=== PATIENT | male | born 1940 | race Caucasian/White ===

== ENCOUNTER → 2017-04-27 | Outpatient (CLI) | payer OTHER ==
[2017-04-27 08:06] LABS: MEAN CORPUSCULAR HEMOGLOBIN 32.9 pg (27.0-33.0); MEAN CORPUSCULAR HGB CONC 34.1 g/dl (32.0-36.5); MEAN CORPUSCULAR VOLUME 96.4 fl (80.0-96.0); RED CELL DISTRIBUTION WIDTH 12.6 % (11.5-14.5); WHITE BLOOD COUNT 5.3 K/mm3 (4.0-10.0)
[2017-04-27 08:51] LABS: ALBUMIN/GLOBULIN RATIO 1.48 (1.00-1.93); ALKALINE PHOSPHATASE 94 U/L (45-117); ALT/SGPT 25 U/L (12-78); ANION GAP 6 MEQ/L (8-16); AST/SGOT 26 U/L (15-37); BILIRUBIN,TOTAL 1.1 MG/DL (0.2-1.0); BLOOD UREA NITROGEN 11 MG/DL (7-18); CALCIUM LEVEL 8.7 MG/DL (8.8-10.2); CARBON DIOXIDE LEVEL 29 MEQ/L (21-32); CHLORIDE LEVEL 95 MEQ/L (98-107); CHOLESTEROL LEVEL 152 MG/DL (<200); CREATININE FOR GFR 0.76 MG/DL (0.70-1.30); GLOMERULAR FILTRATION RATE > 60.0 (>42); GLUCOSE, FASTING 100 MG/DL (83-110); POTASSIUM SERUM 4.6 MEQ/L (3.5-5.1); SODIUM LEVEL 130 MEQ/L (136-145); TOTAL PROTEIN 6.7 GM/DL (6.4-8.2); TRIGLYCERIDES LEVEL 55 MG/DL (<150)
--- NOTE | 2017-04-27 09:11 | REP ---
Chest x-ray: Two views. History: Hypertension. Comparison chest x-ray May 30, 2016. Findings: The lungs are well inflated and clear. Pleural angles are sharp. The heart is mildly enlarged unchanged from the comparison study. There is evidence of left atrial enlargement along the right heart border. There is vascular calcification in the thoracic aorta. Mild degenerative changes are seen in the thoracic spine. Impression: Mild cardiomegaly unchanged. Otherwise no acute disease. Signed by Eze Levin MD 04/27/2017 09:37 A
--- NOTE | 2017-04-28 13:50 | ECGEPIP ---
Stationary ECG Study [facility] Test Date: 2017-04-27 Pat Name: HELENE JAY Department: Room: - Gender: M Assistant Operator: : 1940 Requested By: Carol Dominique Order Number: [id number] Reading MD: Jorge Eason Measurements Intervals [place] Rate: 54 P: [place]: 0 QRS: 19 QRSD: 82 T: 19 QT: 404 QTc: 385 Interpretive Statements ATRIAL FIBRILLATION WITH SLOW VENTRICULAR RESPONSE Rate decreased from 03-18-15 Electronically Signed On 04-28-2017 13:49:57 EDT by Jorge Eason
== END ==
LOC: M LAB 07:31
PROVIDERS: ATTEND Family Medicine
DX: R53.83 Other fatigue (principal); I10 Essential (primary) hypertension; N40.1 Benign prostatic hyperplasia with lower urinary tract symptoms; Z79.899 Other long term (current) drug therapy

== ENCOUNTER → 2017-05-23 | Outpatient (CLI) | payer OTHER | LOC: M LAB 10:07 | PROVIDERS: ATTEND Family Medicine | DX: N41.9 Inflammatory disease of prostate, unspecified (principal) ==

== ENCOUNTER → 2017-06-05 | Outpatient (REF) | payer OTHER | LOC: M SMT 17:07 | PROVIDERS: ATTEND Nurse Practitioner Women's Health | DX: R97.20 Elevated prostate specific antigen [PSA] (principal); Z79.899 Other long term (current) drug therapy | CPT/HCPCS: 81001; 87086; G0463 ==

== ENCOUNTER → 2017-06-19 | Outpatient (CLI) | payer OTHER ==
--- NOTE | 2017-06-19 10:28 | REP ---
TRANSRECTAL PROSTATE ULTRASOUND: 06/19/2017 CLINICAL HISTORY. Elevated PSA. FINDINGS: Sonographic evaluation of the prostate with transrectal probe shows the gland 4.6 x 3.2 x 4.7 cm giving calculated volume of 36.5 mL . The bilateral seminal vesicles are symmetric and unremarkable. The gland is heterogeneous in appearance and on the right side is an 8 x 6 mm nodule the left is a 7 x 5 mm nodule. There are some calcifications scattered in the gland is well. IMPRESSION: 1. Heterogeneous prostate with the multiple calcifications and two small nodules as described 8 mm on the right and 7 mm on the left side. Prostate volume 36.5 mL in volume. Signed by Jaguar Hernandez MD 06/19/2017 06:55 P
== END ==
LOC: M SMT PRO 08:13
PROVIDERS: ATTEND Nurse Practitioner Women's Health
DX: C61 Malignant neoplasm of prostate (principal)
CPT/HCPCS: 55700; 76872; 76942; G0416

== ENCOUNTER → 2017-06-27 | Outpatient (CLI) | payer OTHER ==
[2017-06-27 19:30] LABS: ANION GAP 10 MEQ/L (8-16); BLOOD UREA NITROGEN 12 MG/DL (7-18); CALCIUM LEVEL 8.9 MG/DL (8.8-10.2); CARBON DIOXIDE LEVEL 27 MEQ/L (21-32); CHLORIDE LEVEL 96 MEQ/L (98-107); GLOMERULAR FILTRATION RATE > 60.0 (>42); GLUCOSE, FASTING 101 MG/DL (83-110); SODIUM LEVEL 133 MEQ/L (136-145)
== END ==
LOC: M SMT 13:32
PROVIDERS: ATTEND Urology
DX: C61 Malignant neoplasm of prostate (principal)
CPT/HCPCS: 36415; 80048; G0463

== ENCOUNTER → 2017-07-04 | Outpatient (CLI) | payer OTHER ==
--- NOTE | 2017-07-04 13:50 | REP ---
WHOLE BODY BONE SCAN: Following the intravenous administration of 22 millicuries technetium 99m MDP, the patient's whole body is imaged in the anterior and posterior projections. Additional oblique images are performed of the thoracic and pelvic regions as well as lateral views of the calvarium, knees and feet. Mild scattered arthritic uptake is seen in the spine. There is mild arthritic uptake in both knees and in the right foot. I see no compelling scintigraphic evidence of osseous metastases of the axial or appendicular skeleton. Renal and bladder activity are seen. IMPRESSION: No compelling scintigraphic evidence of osseous metastases. Signed by Alejandro Lewis MD 07/04/2017 05:12 P
== END ==
LOC: M RAD 07:43
PROVIDERS: ATTEND Urology
DX: C61 Malignant neoplasm of prostate (principal)
CPT/HCPCS: 78306; A9503

== ENCOUNTER → 2017-07-09 | Outpatient (CLI) | payer OTHER ==
[~2017-07-09] MED LIST: ISOVUE-370 76% 100ML VIAL (Q9967) As Ordered ONE
--- NOTE | 2017-07-09 11:10 | REP ---
CT ABDOMEN PELVIS WITHOUT AND WITH IV CONTRAST: Without oral contrast. HISTORY: Prostate carcinoma. CT contrast dose: 100 mL of Isovue [address] FINDINGS: Digital preliminary sourcing coordinator radiograph demonstrates a normal bowel gas pattern. The lung bases are clear. There is no evidence of pleural effusion or upper abdominal ascites. The liver and the spleen are normal in size and homogeneous in texture. There are granulomatous calcifications in the spleen. There is a focal calcification on the non-dependent wall of the gallbladder. No mass lesion is seen. No adrenal lesion is observed on either side. There is no evidence of hydronephrosis. There is a peripheral cyst in the right mid kidney posteriorly measuring 1.9 cm in greatest diameter. No periaortic adenopathy is seen. Normal caliber aorta is noted. Small and large intestinal bowel loops are unremarkable. Pelvic CT images show mild diffuse bladder wall thickening. The prostate appears enlarged and contains some dystrophic calcifications. No pelvic adenopathy or extra prostatic disease is seen. Seminal vesicles are unremarkable. There is a left inguinal hernia transmitting a small amount of abdominal fat and containing some fluid. The left lateral wall of the bladder is retracted towards the inguinal hernia. No other abdominal wall defect is seen. Bone window settings show no sclerotic or lytic bony destructive lesion. There are degenerative changes in the lumbar spine. IMPRESSION: 1. Diffuse bladder wall thickening. Prostate enlargement. No evidence of adenopathy. 2. Left inguinal hernia transmitting abdominal fat and containing some fluid. The left lateral edge of the bladder is retracted towards the inguinal canal at the time of today's CT study and could be involved in the inguinal hernia. 3. Focal calcification in the gallbladder wall on its non-dependent surface. 4. Small right renal cyst, no hydronephrosis. Signed by Eze Levin MD 07/09/2017 12:33 P
== END ==
LOC: M RAD 09:34
PROVIDERS: ATTEND Urology
DX: C61 Malignant neoplasm of prostate (principal); N28.1 Cyst of kidney, acquired; K40.90 Unilateral inguinal hernia, without obstruction or gangrene, not specified as recurrent
CPT/HCPCS: 74178; Q9967

== ENCOUNTER → 2017-07-19 | Outpatient (CLI) | payer OTHER ==
--- NOTE | 2017-07-20 11:18 | RADONC ---
RADIATION ONCOLOGY CONSULTATION NOTE DATE: 07/19/2017 CHART NUMBER: [id number] DIAGNOSIS: Prostate cancer. STAGE: IIB, [id number]. ECOG PERFORMANCE STATUS: 0 Mr. 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 HISTORY OF PRESENT ILLNESS: The patient was in his usual state of health but was found to have a PSA level which elvis to 5.05 on 05/23/2017. On 06/19/2017, the patient underwent prostatic needle biopsy, and pathology found a Amanda score 9 (5 - 4) adenocarcinoma of prostate involving all cores of the left side. There was perineural invasion noted on one of the cores. The patient has done well since biopsy and is now presenting for discussion of definitive external beam radiation therapy with IMRT/IGRT. PAST MEDICAL HISTORY: The patient's past medical history is positive for a basal cell carcinoma in 2014 on his nose which was treated by us to a dose of 5000 cGy in 20 fractions of 257 cGy each. In addition to his skin cancer, the patient's past medical history is positive for cardiac difficulties and an amputated right finger. He also has a history of hypertension and arthritis. ALLERGIES: Patient is allergic to NAPROXEN. SOCIAL HISTORY: The patient does not smoke cigarettes. He drinks alcohol socially. FAMILY HISTORY: The patient's family history is positive for a mother, brother, and sister with various types of cancers. REVIEW OF SYSTEMS: The patient's review of systems is positive for some hearing loss but is otherwise noncontributory. He denies nausea, vomiting, fevers, chills, night sweats, diplopia, headaches, anxiety or depression, anorexia, weight loss, visual disturbances, chest pain, urinary or bowel difficulties, bone pain, or neurological problems. PHYSICAL EXAMINATION The patient is a well-developed, well-nourished male in no acute distress. HEENT exam is normocephalic, atraumatic. Extraocular movements are intact. There is no palpable cervical, supraclavicular, infraclavicular, axillary, or inguinal lymphadenopathy present. Lungs are clear to auscultation and percussion. Heart has a regular rate and rhythm. Abdomen is benign with no hepatosplenomegaly, masses, or tenderness. Rectal examination reveals a normal anal sphincter tone. His prostate is smooth with no evidence of nodularity. Skeletal examination reveals no tenderness to pressure or percussion of the bony skeleton. Extremities reveal no clubbing, cyanosis, or edema. Neurologic exam is grossly intact, as is the remainder of the physical examination. MEDICAL NECESSITY: IMRT/IGRT is clinically indicated for the highly conformal dose planning required. The target volume is in close proximity to critical structures, such as the rectum, bladder, small bowel, and femoral heads. The volume of interest must be covered with narrow margins to adequately protect immediately adjacent structures. The plan requires interpretation of complex testing such as CT localization. As noted above, special planning (IMRT) and localizing (IGRT) is required and essential to maximally protect sensitive normal tissue structures which cannot be accomplished using conventional 3-dimensional planning. ASSESSMENT: Clearly, the patient is a candidate for external beam radiation therapy, and I have so informed him. I have discussed with the patient in detail the potential benefits as well as possible acute and chronic sequelae of external beam radiation therapy. We discussed logistics of treatment planning, simulation, and subsequent fractionated daily radiation treatments. I will be scheduling the patient for initiation of treatment planning, and radiation treatments will follow subsequently. Thank you for allowing us to participate in the care of this very pleasant gentleman. If I could be of any further assistance or provide you with any information, please feel free to contact me at anytime. cc: MD Catina Jimenez MD
--- NOTE | 2017-09-19 08:17 | RADONC ---
RADIATION ONCOLOGY DATE: 09/17/2017 CHART NUMBER: [id number] Mr. Seymour is presently on a dose of 1800 cGy to his prostate and is tolerating treatments quite well at this point with no complaints related to his radiation therapy. He is having no urinary or bowel difficulties. No bone pain. REVIEW OF SYSTEMS: The patient's review of systems is noncontributory. Denies nausea, vomiting, fevers, chills, night sweats, diplopia, headaches, anxiety or depression, anorexia, weight loss, visual disturbances, chest pain, urinary or bowel difficulties, bone pain, or neurological problems. PHYSICAL EXAMINATION: It at the patient's skin is in good condition with no evidence of radiation change present. There is no moist or dry desquamation. The remainder of his physical exam remains unchanged. Mr. Seymour is tolerating treatments quite well, and radiation will continue as scheduled.
== END ==
LOC: M ONCR 13:42
PROVIDERS: ATTEND Radiology Radiation Oncology
DX: C61 Malignant neoplasm of prostate (principal)

== ENCOUNTER → 2017-08-07 | Outpatient (CLI) | payer OTHER ==
--- NOTE | 2017-08-07 13:07 | REP ---
TRANSRECTAL PROSTATE ULTRASOUND GUIDANCE FOR FIDUCIARY MARKER PLACEMENT: Transrectal ultrasound guidance was provided for fiduciary marker placement in the prostate gland. Six fiduciary markers were placed in various locations in the prostate by Dr. Carmen. Signed by Alejandro Lewis MD 08/07/2017 01:51 P
== END ==
LOC: M SMT 11:10
PROVIDERS: ATTEND Urology
DX: C61 Malignant neoplasm of prostate (principal)
CPT/HCPCS: 55700; 55876; 76872; A4648

== ENCOUNTER → 2017-08-22 | Outpatient (CLI) | payer OTHER ==
[2017-08-22 11:07] LABS: MEAN CORPUSCULAR HEMOGLOBIN 32.7 pg (27.0-33.0); MEAN CORPUSCULAR HGB CONC 34.6 g/dl (32.0-36.5); MEAN CORPUSCULAR VOLUME 94.4 fl (80.0-96.0); RED CELL DISTRIBUTION WIDTH 12.6 % (11.5-14.5); WHITE BLOOD COUNT 6.8 10^3/uL (4.0-10.0)
== END ==
LOC: M RAD 10:20
PROVIDERS: ATTEND Radiology Radiation Oncology
DX: C61 Malignant neoplasm of prostate (principal)

== ENCOUNTER 2017-09-19 14:11 | Outpatient (RCR) | payer OTHER ==
--- NOTE | 2017-09-26 07:30 | RADONC ---
RADIATION ONCOLOGY PROGRESS NOTE DATE: 09/24/2017 CHART NUMBER: [id number] Mr. Seymour is presently at a dose of 2700 cGy to his prostate and is tolerating treatments quite well at this point with no complaints related to his radiation therapy. He is having no urinary or bowel difficulties and no bone pain. REVIEW OF SYSTEMS: The patient's review of systems is noncontributory. Denies nausea, vomiting, fevers, chills, night sweats, diplopia, headaches, anxiety or depression, anorexia, weight loss, visual disturbances, chest pain, urinary or bowel difficulties, bone pain, or neurological problems. PHYSICAL EXAMINATION: The patient's skin is in good condition with no evidence of radiation change present. There is no moist or dry desquamation. The remainder of his physical exam remains unchanged. Mr. Seymour is tolerating treatments quite well and radiation will continue as scheduled.
--- NOTE | 2017-10-01 08:59 | RADONC ---
RADIATION ONCOLOGY PROGRESS NOTE DATE: 10/01/2017 CHART NUMBER: [id number] Mr. Seymour is presently at a dose of 3600 cGy to his prostate and is tolerating treatments quite well at this point with no significant difficulties related to his radiation therapy other than some occasional urinary hesitancy. The patient's review of systems is positive for some urinary hesitancy but is otherwise noncontributory. He denies nausea, vomiting, fevers, chills, night sweats, diplopia, headaches, anxiety or depression, anorexia, weight loss, visual disturbances, chest pain, urinary or bowel difficulties, bone pain, or neurological problems. PHYSICAL EXAMINATION: The patient's skin is in good condition with no evidence of radiation change present. There is no moist or dry desquamation. The remainder of his physical exam remains unchanged. Mr. Seymour is tolerating treatments quite well at this point and radiation will continue as scheduled.
--- NOTE | 2017-10-08 11:01 | RADONC ---
RADIATION ONCOLOGY PROGRESS NOTE DATE: 10/08/2017 CHART NUMBER: [id number] Mr. Seymour is presently at a dose of 4320 cGy to his prostate and is tolerating treatments quite well at this point with no complaints related to his radiation therapy. He is having no urinary or bowel difficulties and no bone pain. REVIEW OF SYSTEMS: The patient's review of systems is noncontributory. Denies nausea, vomiting, fevers, chills, night sweats, diplopia, headaches, anxiety or depression, anorexia, weight loss, visual disturbances, chest pain, urinary or bowel difficulties, bone pain, or neurological problems. PHYSICAL EXAMINATION: The patient's skin is in good condition with no evidence of radiation change present. There is no moist or dry desquamation. The remainder of his physical exam remains unchanged. Mr. Seymour is tolerating treatments quite well and radiation will continue as scheduled.
--- NOTE | 2017-10-15 09:47 | RADONC ---
RADIATION ONCOLOGY PROGRESS NOTE DATE: 10/15/2017 CHART NUMBER: [id number] Mr. Seymour is presently at a dose of 4860 cGy to his prostate and is tolerating treatments quite well at this point with no complaints related to his radiation therapy. He is having no urinary or bowel difficulties and no bone pain. The patient's review of systems is noncontributory. He denies nausea, vomiting, fevers, chills, night sweats, diplopia, headaches, anxiety or depression, anorexia, weight loss, visual disturbances, chest pain, urinary or bowel difficulties, bone pain, or neurological problems. PHYSICAL EXAMINATION: The patient's skin is in good condition with no evidence of moist or dry desquamation. The remainder of his physical exam remains unchanged. Mr. Vance is tolerating treatments quite well and radiation will continue as scheduled.
== END 2017-10-18 ==
LOC: M ONCR 14:11
PROVIDERS: ATTEND Radiology Radiation Oncology
DX: C61 Malignant neoplasm of prostate (principal)

== ENCOUNTER 2017-10-19 14:17 | Outpatient (RCR) | payer OTHER | END 2017-11-18 | LOC: M ONCR 14:17 | DX: C61 Malignant neoplasm of prostate (principal) | CPT/HCPCS: 77336 ==

== ENCOUNTER → 2017-12-19 | Outpatient (CLI) | payer OTHER ==
[2017-12-19 10:00] LABS: PROSTATIC SPECIFIC AG MONITOR 0.07 NG/ML (< 4.0)
== END ==
LOC: M ONCR 09:08
DX: C61 Malignant neoplasm of prostate (principal)
CPT/HCPCS: 84153

== ENCOUNTER → 2018-02-20 | Outpatient (REF) | payer OTHER | LOC: M SMT 12:46 | DX: R35.0 Frequency of micturition (principal); R39.15 Urgency of urination; C61 Malignant neoplasm of prostate | CPT/HCPCS: 87086 ==

== ENCOUNTER → 2018-06-12 | Outpatient (CLI) | payer OTHER ==
[2018-06-12 10:26] LABS: PROSTATIC SPECIFIC AG MONITOR 0.03 NG/ML (< 4.0)
== END ==
LOC: M LAB 09:00
DX: C61 Malignant neoplasm of prostate (principal)
CPT/HCPCS: 84153

== ENCOUNTER → 2018-06-19 | Outpatient (CLI) | payer OTHER | LOC: M ONCR 08:54 | DX: C61 Malignant neoplasm of prostate (principal); C44.301 Unspecified malignant neoplasm of skin of nose | CPT/HCPCS: G0463 ==

== ENCOUNTER → 2018-11-25 | Outpatient (CLI) | payer MEDICARE, OTHER, SELFPAY | LOC: M LAB 14:10 | PROVIDERS: ATTEND Radiology Radiation Oncology | DX: C61 Malignant neoplasm of prostate (principal) ==

== ENCOUNTER → 2018-12-04 | Outpatient (CLI) | payer MEDICARE ==
--- NOTE | 2018-12-05 11:11 | RADONC ---
RADIATION ONCOLOGY FOLLOWUP NOTE DATE: 12/04/2018 CHART NUMBER: [id number] DIAGNOSIS: Prostate cancer. STAGE: IIB, O6pH8L1. DIAGNOSIS: Basal cell carcinoma of nose. ECOG PERFORMANCE STATUS: 0. FOLLOWUP NOTE: Mr. Seymour is a very pleasant 78-year-old white male with the diagnosis of a stage IIB, [id number], poorly differentiated Amanda score 9 (5-4) adenocarcinoma of the prostate as well as a small basal cell carcinoma involving the bridge of his nose who is presenting to us today for routine followup visit 1 year and 1 month post completion of external beam radiation therapy to his prostate and 3-1/2 years post completion of external beam radiation therapy to his nose. The patient presents today reporting that he is doing quite well with no complaints at this time related to his radiation therapy or disease. He is having no urinary or bowel difficulties and no bone pain. The patient's review of systems is noncontributory. He denies nausea, vomiting, fevers, chills, night sweats, diplopia, headaches, anxiety or depression, anorexia, weight loss, visual disturbances, chest pain, urinary or bowel difficulties, bone pain, or neurological problems. PHYSICAL EXAMINATION: The patient is a well-developed, well-nourished male in no acute distress. HEENT exam is normocephalic, atraumatic. Extraocular movements are intact. There is no palpable cervical, supraclavicular, infraclavicular, axillary, or inguinal lymphadenopathy present. Lungs are clear to auscultation and percussion. Heart has a regular rate and rhythm. Abdomen is benign with no hepatosplenomegaly, masses, or tenderness. Rectal examination reveals a normal anal sphincter tone. His prostate is smooth with no evidence of nodularity. Skeletal examination reveals no tenderness to pressure or percussion of the bony skeleton. Extremities reveal no clubbing, cyanosis, or edema. Neurologic exam is grossly intact as is the remainder of the physical examination. ASSESSMENT: The patient is clinically NANCY at this time and will be seen by us again in 6 months for further followup. He will also continue to be followed by his other physicians as well. cc: MD Catina Jimenez MD
== END ==
LOC: M ONCR 10:17
PROVIDERS: ATTEND Radiology Radiation Oncology
DX: C61 Malignant neoplasm of prostate (principal)

== ENCOUNTER 2019-02-26 21:43 | Emergency (ER) | payer MEDICARE ==
[~2019-02-26] VITALS: Ht 172.7 cm; Wt 81.8 kg
[2019-02-26] MEDS ORDERED: K-TA10TA2 PO (21:58)
[2019-02-26] MEDS ORDERED: FURO20TA2 PO (21:58)
[2019-02-26] MEDS ORDERED: MYRB50TA PO (21:58)
[2019-02-26] MEDS ORDERED: BENA40TA7 PO (21:58)
[2019-02-26] MEDS ORDERED: XARE20TA PO (21:58)
[2019-02-26] MEDS ORDERED: PRAV40TA2 PO (21:58)
[2019-02-26] MEDS ORDERED: SPIR-10 PO (21:58)
[2019-02-26 22:55] VITALS: BP 142/76
== END 2019-02-26 23:01 | disposition home or self-care (01) ==
LOC: M ED 21:43
DX: S99.922A Unspecified injury of left foot, initial encounter (principal); W26.8XXA Contact with other sharp object(s), not elsewhere classified, initial encounter; Y92.89 Other specified places as the place of occurrence of the external cause; M79.9 Soft tissue disorder, unspecified; I10 Essential (primary) hypertension; I48.91 Unspecified atrial fibrillation; Z79.899 Other long term (current) drug therapy; Z79.01 Long term (current) use of anticoagulants; Z91.018 Allergy to other foods

== ENCOUNTER → 2019-05-13 | Outpatient (CLI) | payer MEDICARE ==
[~2019-05-13] MED LIST changes: +BENA40TA7 PO; +FURO20TA2 PO; -ISOVUE-370 76% 100ML VIAL (Q9967) As Ordered ONE; +K-TA10TA2 PO; +MYRB50TA PO; +PRAV40TA2 PO; +SPIR-10 PO; +XARE20TA PO
== END ==
LOC: M LAB 11:04
PROVIDERS: ATTEND Radiology Radiation Oncology
DX: C61 Malignant neoplasm of prostate (principal)

== ENCOUNTER → 2019-05-15 | Outpatient (CLI) | payer MEDICARE ==
[2019-05-15 07:26] LABS: HEMATOCRIT 35.7 % (42.0-52.0); HEMOGLOBIN 12.2 g/dl (13.5-17.5); MEAN CORPUSCULAR HEMOGLOBIN 33.6 pg (27.0-33.0); MEAN CORPUSCULAR HGB CONC 34.2 g/dl (32.0-36.5); MEAN CORPUSCULAR VOLUME 98.3 fl (80.0-96.0); PLATELET COUNT, AUTOMATED 161 10^3/uL (150-450); RED BLOOD COUNT 3.63 10^6/uL (4.30-6.10); WHITE BLOOD COUNT 5.6 10^3/uL (4.0-10.0)
[2019-05-15 08:02] LABS: BLOOD UREA NITROGEN 14 MG/DL (7-18); CALCIUM LEVEL 9.2 MG/DL (8.8-10.2); CARBON DIOXIDE LEVEL 29 MEQ/L (21-32); CHLORIDE LEVEL 97 MEQ/L (98-107); CHOLESTEROL LEVEL 153 MG/DL (<200); CHOLESTEROL RISK RATIO 1.738 (<5); GLOMERULAR FILTRATION RATE > 60.0 (>42); GLUCOSE, FASTING 104 MG/DL (70-100); HDL CHOLESTEROL 88 MG/DL (>40); LDL CHOLESTEROL 58 MG/DL (<100); NON-HDL-C 65 MG/DL; POTASSIUM SERUM 4.7 MEQ/L (3.5-5.1); SODIUM LEVEL 132 MEQ/L (136-145); THYROID STIMULATING HORMONE 0.897 uIU/ML (0.358-3.740); TRIGLYCERIDES LEVEL 37 MG/DL (<150)
== END ==
LOC: M LAB 06:54
PROVIDERS: ATTEND Internal Medicine Cardiovascular Disease
DX: I48.2 Chronic atrial fibrillation (principal); E87.1 Hypo-osmolality and hyponatremia

== ENCOUNTER → 2019-05-21 | Outpatient (CLI) | payer MEDICARE ==
--- NOTE | 2019-05-22 10:16 | RADONC ---
RADIATION ONCOLOGY FOLLOWUP NOTE DATE OF SERVICE: 05/21/2019 CHART NUMBER: [id number]. DIAGNOSIS: Prostate cancer. STAGE: IIB, [id number]. DIAGNOSIS: Basal cell carcinoma of the nose. ECOG PERFORMANCE STATUS: 0. FOLLOWUP NOTE: Mr. Seymour is a 78-year-old man with a diagnosis of a stage IIB, [id number] poorly differentiated Amanda score 9 (5+4) adenocarcinoma of the prostate, as well as a small basal cell carcinoma involving the bridge of his nose. He presents today now for a followup visit. He completed treatments to the prostate cancer on 11/08/2017. He denies any significant side effects secondary to the treatments or to his disease. REVIEW OF SYSTEMS: The patient specifically denies any nausea, vomiting, diarrhea, dysuria, hematuria, or blood per rectum. His energy level is satisfactory, and he is able to maintain most of his day-to-day activities without any significant alteration of his lifestyle. He also reports no abnormalities involving the nose. EXAMINATION FINDINGS: The skin within the irradiated volumes, both the nose and the prostate area, look fairly normal. There is certainly no evidence of erythema nor is there evidence of desquamation. There is no palpable peripheral lymphadenopathy. Lungs: Are distant bilaterally with a grade 2/6 systolic ejection murmur audible. Abdomen: Without evidence of hepatomegaly, masses, deep abdominal tenderness. Extremities: Without cyanosis, clubbing, or edema. Neurologic examination: Physiologic. IMPRESSION: Clinically NANCY without evidence of either recurrent basal carcinoma with no evidence of disease progression with regard to his prostate cancer. His most recent PSA was 0.01 noted on 05/13/2019. PLAN: We would like to see him in approximately 6 months or p.r.n., and I have advised him to return to his referring physicians as per their directions and instructions. Thank you for allowing us the opportunity of participation in the joint followup care of this fine gentleman. cc: MD Catina Jimenez MD
== END ==
LOC: M ONCR 10:14
PROVIDERS: ATTEND Radiology Radiation Oncology
DX: Z85.46 Personal history of malignant neoplasm of prostate (principal)

== ENCOUNTER 2019-06-17 13:17 | Outpatient (RCR) | payer MEDICARE ==
[~2019-06-17 13:17] MED LIST changes: +BENA40TA5 PO; -BENA40TA7 PO
--- NOTE | 2019-06-17 16:29 | RADONC ---
RADIATION ONCOLOGY SIMULATION NOTE DATE: 06/17/2019 CHART NUMBER: [id number] SIMULATION NOTE: Mr. Seymour was taken to the linear accelerator today for clinical setup of his electron beam right cheek field. Setup was accomplished without difficulty or discomfort. Radiation treatment planning is underway and radiation treatments will begin subsequently. An immobilization device was created and be used throughout the course of treatment. It was created without difficulty or discomfort. I was physically present throughout the course of clinical setup simulation.
== END 2019-06-18 ==
LOC: M ONCR 13:17
PROVIDERS: ATTEND Radiology Radiation Oncology
DX: C44.309 Unspecified malignant neoplasm of skin of other parts of face (principal)

== ENCOUNTER → 2019-06-25 | Outpatient (CLI) | payer MEDICARE | LOC: M LAB 08:44 | PROVIDERS: ATTEND Urology | DX: C61 Malignant neoplasm of prostate (principal) ==

== ENCOUNTER 2019-07-18 13:16 | Outpatient (RCR) | payer MEDICARE ==
--- NOTE | 2019-07-02 10:22 | RADONC ---
RADIATION ONCOLOGY PROGRESS NOTE DATE: 06/30/2019 CHART NUMBER: [id number] PROGRESS NOTE: Mr. 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 His current dose is 1250 centigray of an anticipated 5000 centigray and the tolerance as anticipated has been quite good thus far. He has no specific complaints referable to his disease or to his treatments. REVIEW OF SYSTEMS: He specifically denies any nausea, vomiting, odynophagia, dysphagia, dryness of mouth, alteration of taste or pain. His energy level is such that he is able to maintain many day-to-day activities without any significant alteration of his lifestyle. Skin irritation is denied. EXAMINATION FINDINGS: The skin within the irradiated volume shows mild erythema of the tumor itself without any erythema or desquamation of the skin. There is no palpable peripheral lymphadenopathy. The remainder of the physical examination is unchanged. IMPRESSION: Tolerating therapy well. PLAN: Treatments to continue.
--- NOTE | 2019-07-10 09:38 | RADONC ---
RADIATION ONCOLOGY PROGRESS NOTE DATE: 07/07/2019 CHART NUMBER: [id number] Mr. Seymour is presently at a dose of 2500 cGy to his right cheek and is tolerating treatments quite well at this point with no complaints related to his radiation therapy. He has no skin pain or discomfort. The patient's review of systems is noncontributory. He denies nausea, vomiting, fevers, chills, night sweats, diplopia, headaches, anxiety or depression, anorexia, weight loss, visual disturbances, chest pain, urinary or bowel difficulties, bone pain, or neurological problems. PHYSICAL EXAMINATION: The patient's skin is in excellent condition with no evidence of radiation change present. There is no moist or dry desquamation. The remainder of his physical exam remains unchanged as well. Mr. Seymour is tolerating his treatments quite well, and radiation will continue as scheduled.
--- NOTE | 2019-07-16 08:30 | RADONC ---
RADIATION ONCOLOGY PROGRESS NOTE DATE: 07/14/2019 CHART NUMBER: [id number] Mr. Seymour is presently a dose of 3750 cGy to his right cheek and is tolerating treatments quite well at this point with no complaints related to his radiation therapy. He is having no skin pain or other discomfort. REVIEW OF SYSTEMS: The patient's review of systems is noncontributory. Denies nausea, vomiting, fevers, chills, night sweats, diplopia, headaches, anxiety or depression, anorexia, weight loss, visual disturbances, chest pain, urinary or bowel difficulties, bone pain, or neurological problems. PHYSICAL EXAMINATION: The patient's skin shows some erythema and tanning present but overall is in good condition with no evidence of moist or dry desquamation. The remainder of his physical exam remains unchanged. Mr. Seymour is tolerating treatments quite well and radiation will continue as scheduled.
== END 2019-07-19 ==
LOC: M ONCR 13:16
PROVIDERS: ATTEND Radiology Radiation Oncology
DX: C44.309 Unspecified malignant neoplasm of skin of other parts of face (principal)

== ENCOUNTER 2019-07-22 13:21 | Outpatient (RCR) | payer MEDICARE ==
[~2019-07-22 13:21] MED LIST changes: -BENA40TA5 PO; +BENA40TA7 PO
--- NOTE | 2019-07-23 09:49 | RADONC ---
RADIATION ONCOLOGY TREATMENT SUMMARY: DATE OF SERVICE: 07/22/2019 CHART NUMBER: [id number] DIAGNOSIS: Squamous cell carcinoma, right cheek. ECOG PERFORMANCE STATUS: 0 RADIATION SUMMARY: PLAN OF RADIOTHERAPY: Local regional control/definitive. DATE RADIOTHERAPY STARTED: June 24, 2019 DATE RADIOTHERAPY COMPLETED: July 22, 2019 DOSE: The patient received a total of 5000 cGy administered in 20 fractions over 28 elapsed days. Prior to treatment delivery localization was accomplished visually and treatment portals were defined by the use of special Cerrobend molding devices. He was treated via the use of a 6 MEV electron beam with a solitary single direct en face field assessed at the 90% isodose line. STATUS OF TUMOR: The patient had an excellent response to local regional radiotherapy with no visibly apparent tumor at the conclusion of his radiotherapy. He had no new areas occur within that area being treated. FOLLOWUP: We would like him to return to our clinic in approximately 1 month or p.r.n. and he was advised to return to his referring physicians as per their directions and instructions. Thank you for referring this very fine gentleman to us and allowing us the opportunity of participation in his overall management. Most sincerely,
== END 2019-08-18 ==
LOC: M ONCR 13:21
PROVIDERS: ATTEND Radiology Radiation Oncology
DX: C44.309 Unspecified malignant neoplasm of skin of other parts of face (principal)

== ENCOUNTER → 2019-08-27 | Outpatient (CLI) | payer MEDICARE ==
--- NOTE | 2019-08-28 08:12 | RADONC ---
RADIATION ONCOLOGY FOLLOWUP NOTE DATE: 08/27/2019 CHART NUMBER: [id number] DIAGNOSIS: Prostate cancer. STAGE: IIB, T2b,N0, M0. DIAGNOSIS: Squamous cell carcinoma right cheek. ECOG PERFORMANCE STATUS: 0. FOLLOWUP NOTE: Mr. Seymour is a very pleasant 78-year-old white male with the diagnosis of a stage IIB, T2b, N0, M0 poorly differentiated Amanda score 9 (5-4) adenocarcinoma of the prostate with an initial PSA level of 5.05 who is presenting to us today for followup visit almost 2 years post completion of external beam radiation therapy with IMRT/IGRT. 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 Radiation to the cheek was completed on July 22, 2019. He is here for routine followup of that as well. The patient presents today reporting he is doing quite well with no complaints at this time related to his radiation therapy or disease. He is having no urinary or bowel difficulties and no bone pain. The patient's review of systems is noncontributory. He denies nausea, vomiting, fevers, chills, night sweats, diplopia, headaches, anxiety or depression, anorexia, weight loss, visual disturbances, chest pain, urinary or bowel difficulties, bone pain, or neurological problems. PHYSICAL EXAMINATION: The patient is a well-developed, well-nourished male in no acute distress. HEENT exam is normocephalic, atraumatic. Extraocular movements are intact. There is no palpable cervical, supraclavicular, infraclavicular, axillary, or inguinal lymphadenopathy present. Lungs are clear to auscultation and percussion. Heart has a regular rate and rhythm. Abdomen is benign with no hepatosplenomegaly, masses, or tenderness. Rectal examination reveals a normal anal sphincter tone. His prostate is smooth with no evidence of nodularity. Skeletal examination reveals no tenderness to pressure or percussion of the bony skeleton. Extremities reveal no clubbing, cyanosis, or edema. Neurologic exam is grossly intact as is the remainder of the physical examination. The patient's skin in the treated field of the cheek shows some tanning present but overall is in excellent condition with no evidence of moist or dry desquamation. There is no nodularity, ulceration or evidence of residual or recurrent disease. ASSESSMENT: The patient is clinically NANCY for both his skin cancer and his prostate cancer. I ordered a new PSA to be undertaken today and the results are pending. The patient is being followed closely by our urologist, Dr. Carmen, and is scheduled to see Dr. Carmen again in December. In addition, the patient's skin cancer is being followed closely by Dr. Catina Harris MD who is seeing him routinely. In light of my impending chcf and his close followup with his other managing physicians I have discharge this patient from our followup except on an as needed basis. The patient and his have my cell phone number as well as the number to the office here. If they have any questions, I am more than glad to be of any assistance can in the meantime. cc: MD Catina Jimenez MD
== END ==
LOC: M ONCR 10:03
PROVIDERS: ATTEND Radiology Radiation Oncology
DX: Z85.828 Personal history of other malignant neoplasm of skin (principal); Z85.46 Personal history of malignant neoplasm of prostate; Z92.3 Personal history of irradiation

== ENCOUNTER 2019-12-17 09:45 | Outpatient (RCR) | payer MEDICARE ==
[~2019-12-17 09:45] MED LIST changes: +BENA40TA5 PO; -BENA40TA7 PO
== END 2019-12-19 ==
LOC: M PT 09:45
PROVIDERS: ATTEND Podiatrist Foot & Ankle Surgery
DX: R26.81 Unsteadiness on feet (principal)

== ENCOUNTER → 2019-12-31 | Outpatient (CLI) | payer MEDICARE | LOC: M LAB 11:40 | PROVIDERS: ATTEND Urology | DX: C61 Malignant neoplasm of prostate (principal) ==

== ENCOUNTER 2020-01-12 20:36 | Emergency (ER) | payer MEDICARE ==
[~2020-01-12] VITALS: Ht 175.3 cm; Wt 80.0 kg
[2020-01-12] MEDS ORDERED: AVOD0.5C PO (20:44)
[2020-01-12] MEDS ORDERED: CARB25TA9 (21:11)
[2020-01-12 21:51] LABS: BASO % 0.5 % (0.0-1.0); EOS # 0.1 10^3/uL (0.0-0.5); EOS % 1.6 % (0.0-3.0); HEMATOCRIT 34.2 % (42.0-52.0); HEMOGLOBIN 11.7 g/dl (13.5-17.5); LYMPH # 1.6 10^3/uL (1.5-5.0); LYMPH % 25.8 % (24.0-44.0); MEAN CORPUSCULAR HEMOGLOBIN 32.6 pg (27.0-33.0); MEAN CORPUSCULAR HGB CONC 34.2 g/dl (32.0-36.5); MEAN CORPUSCULAR VOLUME 95.3 fl (80.0-96.0); MONO # 0.6 10^3/uL (0.0-0.8); MONO % 9.5 % (0.0-5.0); NEUTROPHILS # 3.9 10^3/uL (1.5-8.5); NEUTROPHILS % 62.3 % (36.0-66.0); PLATELET COUNT, AUTOMATED 166 10^3/uL (150-450); RED BLOOD COUNT 3.59 10^6/uL (4.30-6.10); WHITE BLOOD COUNT 6.3 10^3/uL (4.0-10.0)
[2020-01-12 22:00] LABS: BLOOD UREA NITROGEN 24 MG/DL (7-18); CALCIUM LEVEL 8.8 MG/DL (8.8-10.2); CARBON DIOXIDE LEVEL 30 MEQ/L (21-32); CHLORIDE LEVEL 100 MEQ/L (98-107); CREATININE FOR GFR 0.79 MG/DL (0.70-1.30); GLOMERULAR FILTRATION RATE > 60.0 (>42); GLUCOSE, FASTING 84 MG/DL (70-100); POTASSIUM SERUM 3.9 MEQ/L (3.5-5.1); SODIUM LEVEL 135 MEQ/L (136-145)
[2020-01-13] MEDS ORDERED: ACETAMINOPHEN TAB 650MG DOSE (2X325MG) PO ONE (00:15)
[2020-01-13 00:27] VITALS: BP 158/68
--- NOTE | 2020-01-13 07:29 | REP ---
There is four views: There is demineralization. 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 The joint spaces are otherwise unremarkable. There is no fracture or dislocation. There is calcified vascular atheroma. Electronically Signed by Alejandro Javed MD 01/13/2020 07:20 A
== END 2020-01-13 00:29 | disposition home or self-care (01) ==
LOC: M ED 20:36
DX: R25.2 Cramp and spasm (principal); M19.041 Primary osteoarthritis, right hand; M19.031 Primary osteoarthritis, right wrist; E86.0 Dehydration; I48.91 Unspecified atrial fibrillation; I11.0 Hypertensive heart disease with heart failure; E78.5 Hyperlipidemia, unspecified; G20 Parkinson's disease; Z85.46 Personal history of malignant neoplasm of prostate; Z85.828 Personal history of other malignant neoplasm of skin; Z79.02 Long term (current) use of antithrombotics/antiplatelets; Z79.899 Other long term (current) drug therapy; Z91.018 Allergy to other foods; Z88.6 Allergy status to analgesic agent

== ENCOUNTER 2020-01-16 10:30 | Outpatient (RCR) | payer MEDICARE ==
[~2020-01-16 10:30] MED LIST changes: +AVOD0.5C PO; +CARB25TA9
== END 2020-01-17 ==
LOC: M PT 10:30
PROVIDERS: ATTEND Podiatrist Foot & Ankle Surgery
DX: R26.81 Unsteadiness on feet (principal)

== ENCOUNTER → 2020-01-20 | Outpatient (CLI) | payer MEDICARE ==
--- NOTE | 2020-01-20 17:09 | REP ---
Soft-tissue head and neck ultrasound: History: Localized swelling or mass in the right cheek. History of squamous cell carcinoma. Findings: Bilateral buckle sonography is performed. In the area of the swelling there is a hypoechoic oval shaped relatively soft, soft tissue structure measuring 2.8 x 1.0 x 2.0 cm. This appears separate from the parotid gland. It is similar in echogenicity to parotid and submandibular salivary tissue. Contralateral scanning for comparison purposes demonstrate a similar structure on the left although quite a bit smaller. On the left, this measures 2.1 x 1.0 x 1.9 cm. Impression: There are bilateral oval-shaped hypoechoic soft tissue lesions in the buccal regions, right greater than left. Possibilities include accessory salivary tissue, less likely lymphadenopathy. The lesions do not appear to be cystic. There is no identifiable internal flow. Soft tissue neck CT study may provide additional information. Electronically Signed by Eze Levin MD 01/20/2020 06:03 P
== END ==
LOC: M RAD 11:52
PROVIDERS: ATTEND Surgery
DX: R22.1 Localized swelling, mass and lump, neck (principal)

== ENCOUNTER 2020-01-30 08:06 | Outpatient (RCR) | payer MEDICARE | END 2020-02-17 | LOC: M PT 08:06 | PROVIDERS: ATTEND Podiatrist Foot & Ankle Surgery | DX: R26.81 Unsteadiness on feet (principal) ==

== ENCOUNTER → 2020-02-04 | Outpatient (CLI) | payer MEDICARE ==
[~2020-02-04] MED LIST changes: +ISOVUE-370 76% 100ML VIAL (Q9967) As Ordered ONE
--- NOTE | 2020-02-04 16:49 | REPVR ---
PROCEDURE INFORMATION: Exam: CT Maxillofacial With Contrast Exam date and time: 02/04/2020 4:01 PM Age: 79 years old Clinical indication: Condition or disease; Other: Sal; Additional info: Sal of uncertain behaviour of minor doreen gland TECHNIQUE: Imaging protocol: Computed tomography images of the face with intravenous contrast. Radiation optimization: All CT scans at this facility use at least one of these dose optimization techniques: automated exposure control; mA and/or kV adjustment per patient size (includes targeted exams where dose is matched to clinical indication); or iterative reconstruction. Contrast material: ISOVUE 370; Contrast volume: 75 ml; Contrast route: IV; COMPARISON: No relevant prior studies available. FINDINGS: Orbits: Orbits are normal. Globes are unremarkable. Sinuses: There is a right maxillary sinus small retention cyst. No air-fluid levels. Bones/joints: No acute fracture. Submandibular/Parotid glands: There is no focal mass of the parotid or submandibular glands. No focal fluid collection. On the right there is accessory parotid tissue extending anteriorly from the gland in close proximity to Stensen's duct. This is seen to a lesser extent on the left. Soft tissues: See "Submandibular/Parotid glands" finding. Other findings: There are prominent buccal fat pads bilaterally. IMPRESSION: 1. No mass identified. 2. Accessory parotid tissue extends anteriorly from the parotids are in close proximity to Stensen's duct, more extensive on the right. Correlate to site of clinical abnormality which is not provided. Electronically signed by: Brian Mejia On 02/04/2020 16:49:15 PM
== END ==
LOC: M RAD 15:43
PROVIDERS: ATTEND Surgery
DX: D37.04 Neoplasm of uncertain behavior of the minor salivary glands (principal)
CPT/HCPCS: 70487; Q9967

== ENCOUNTER → 2020-02-05 | Outpatient (REF) | payer MEDICARE ==
[~2020-02-05] MED LIST changes: -ISOVUE-370 76% 100ML VIAL (Q9967) As Ordered ONE
[2020-02-05 18:08] LABS: BASO % 0.6 % (0.0-1.0); EOS # 0.1 10^3/uL (0.0-0.5); EOS % 1.1 % (0.0-3.0); HEMATOCRIT 36.6 % (42.0-52.0); HEMOGLOBIN 12.4 g/dl (13.5-17.5); LYMPH # 1.7 10^3/uL (1.5-5.0); LYMPH % 35.7 % (24.0-44.0); MEAN CORPUSCULAR HEMOGLOBIN 32.7 pg (27.0-33.0); MEAN CORPUSCULAR HGB CONC 33.9 g/dl (32.0-36.5); MEAN CORPUSCULAR VOLUME 96.6 fl (80.0-96.0); MONO # 0.4 10^3/uL (0.0-0.8); MONO % 7.8 % (0.0-5.0); NEUTROPHILS # 2.6 10^3/uL (1.5-8.5); NEUTROPHILS % 54.6 % (36.0-66.0); PLATELET COUNT, AUTOMATED 162 10^3/uL (150-450); RED BLOOD COUNT 3.79 10^6/uL (4.30-6.10); WHITE BLOOD COUNT 4.7 10^3/uL (4.0-10.0)
[2020-02-05 18:47] LABS: ALBUMIN 4.3 GM/DL (3.2-5.2); ALT/SGPT 11 U/L (12-78); BILIRUBIN,TOTAL 0.7 MG/DL (0.2-1.0); BLOOD UREA NITROGEN 15 MG/DL (7-18); CALCIUM LEVEL 9.4 MG/DL (8.8-10.2); CARBON DIOXIDE LEVEL 30 MEQ/L (21-32); CHLORIDE LEVEL 98 MEQ/L (98-107); CREATININE FOR GFR 0.79 MG/DL (0.70-1.30); FOLATE > 24.0 NG/ML; GLOMERULAR FILTRATION RATE > 60.0 (>42); GLUCOSE, FASTING 92 MG/DL (70-100); POTASSIUM SERUM 4.2 MEQ/L (3.5-5.1); RHEUMATOID FACTOR QUANT < 10.0 IU/ML (<15.0); SODIUM LEVEL 133 MEQ/L (136-145); THYROID STIMULATING HORMONE 0.763 uIU/ML (0.358-3.740); TOTAL PROTEIN 7.1 GM/DL (6.4-8.2); VITAMIN B12 LEVEL 885 PG/ML
[2020-02-05 19:16] LABS: ERYTHROCYTE SEDIMENTATION RATE 11 mm/hr (0-20)
[2020-02-10 08:12] LABS: ANCA-ATYPICAL <1:20 titer (Neg:<1:20); ANTI DS-DNA AB Negative (Negative); ANTINUCLEAR ANTIBODIES DIRECT Negative (Negative); CERULOPLASMIN 27.4 mg/dL (16.0-31.0); COPPER PLASMA 111 ug/dL (72-166); CYTOPLASMIC NEUTROP AB ANCA-C <1:20 titer (Neg:<1:20); LEAD BLOOD ADULT 3 ug/dL (0-4); MERCURY LEVEL None Detected ug/L (0.0-14.9); PERINUCLEAR AB ANCA-P <1:20 titer (Neg:<1:20); SJOGREN'S ANTI SS-A <0.2 AI (0.0-0.9); SJOGREN'S ANTI SS-B <0.2 AI (0.0-0.9); VITAMIN B1 LEVEL WHOLE BLOOD 120.8 nmol/L (66.5-200.0); VITAMIN B6,PYRIDOXAL PHOSPHATE 30.2 ug/L (5.3-46.7); VITAMIN E(ALPHA TOCOPHEROL) 13.2 mg/L (9.0-29.0); VITAMIN E(GAMMA TOCOPHEROL) 1.3 mg/L (0.5-4.9)
== END ==
LOC: M LABNEURO 17:03
PROVIDERS: ATTEND Psychiatry & Neurology Neurology
DX: R25.1 Tremor, unspecified (principal); Z79.899 Other long term (current) drug therapy; G25.9 Extrapyramidal and movement disorder, unspecified

== ENCOUNTER → 2020-05-20 | Outpatient (CLI) | payer MEDICARE | LOC: M LAB 09:48 | PROVIDERS: ATTEND Family Medicine | DX: J44.9 Chronic obstructive pulmonary disease, unspecified (principal) ==

== ENCOUNTER → 2020-05-26 | Outpatient (CLI) | payer MEDICARE ==
[~2020-05-26] MED LIST changes: +DONE5TAB82; +ROPI0.5T3
--- NOTE | 2020-05-27 04:57 | REP ---
TWO-VIEW CHEST: REASON: COPD. COMPARISON: No priors. FINDINGS: The superior mediastinal structures are midline. The cardiac silhouette is unremarkable in size, shape, and position. The diaphragmatic surfaces of the lungs are regular, and the costophrenic angles are clear. The pulmonary sullivan are clear. The imaged osseous structures are intact. The cardiac silhouette is top size normal. IMPRESSION: There is no acute cardiopulmonary disease. Electronically Signed by Gareth Isaac DO 05/27/2020 04:34 P
== END ==
LOC: M RAD 14:04
PROVIDERS: ATTEND Family Medicine
DX: J44.9 Chronic obstructive pulmonary disease, unspecified (principal)

== ENCOUNTER 2020-06-17 14:45 | Outpatient (RCR) | payer MEDICARE ==
[~2020-06-17 14:45] MED LIST changes: -DONE5TAB82; -ROPI0.5T3
== END 2020-06-18 ==
LOC: M PT 14:45
PROVIDERS: ATTEND Psychiatry & Neurology Neurology
DX: G20 Parkinson's disease (principal)

== ENCOUNTER 2020-06-22 14:00 | Outpatient (RCR) | payer MEDICARE | END 2020-07-19 | LOC: M PT 14:00 | PROVIDERS: ATTEND Psychiatry & Neurology Neurology | DX: G20 Parkinson's disease (principal) ==

== ENCOUNTER → 2020-07-06 | Outpatient (CLI) | payer MEDICARE ==
[~2020-07-06] MED LIST changes: +DONE5TAB82; +ROPI0.5T3
== END ==
LOC: M LAB 09:53
PROVIDERS: ATTEND Urology
DX: C61 Malignant neoplasm of prostate (principal)

== ENCOUNTER → 2020-07-13 | Outpatient (CLI) | payer MEDICARE ==
[~2020-07-13] MED LIST changes: +E-Z-GAS II EFFERVESCENT PACKET (SODIUM BICARB./CITRIC ACID/SIMETHICONE) As Ordered ONE; +E-Z-HD 98% w/w 340GM SUSP BTL As Ordered ONE; +E-Z-PAQUE 96% w/w SUSP 176GM BTL As Ordered ONE
--- NOTE | 2020-08-11 11:51 | REP ---
UPPER GI AIR CONTRAST The procedure was performed under the direct supervision of Dr. Levin. The images were reviewed with Dr. Levin. The speedboat driver film shows no organomegaly or pathological masses. The intestinal gas pattern is nonspecific. There are vascular calcification identified. Liquid barium and gas-producing granules were given in the erect position, as well as liquid barium in the prone oblique position in order to perform a double-contrast upper GI examination. The oral and pharyngeal stages of deglutition are unremarkable. Esophageal transport is prompt and efficient and there is no esophagitis, stricture, mucosal ring, or hiatal hernia. Gastroesophageal reflux is not demonstrated on this examination. The stomach castañeda are normally outlined. The rugal folds are smooth and regular. There is no gastritis, neoplasm, or ulcer disease. In the postbulbar duodenum there are mildly thickened folds, which may represent duodenitis. There is no jenn ulcer identified. The visualized portion of the proximal small bowel appears normal in course and caliber. IMPRESSION: In the postbulbar duodenum there are mildly thickened folds, which may represent duodenitis. There is no jenn ulcer identified. 1.3minutes of fluoroscopy time was utilized for this procedure. MTDD
== END ==
LOC: M RAD 07:38
PROVIDERS: ATTEND Family Medicine
DX: R10.13 Epigastric pain (principal)

== ENCOUNTER 2020-08-11 06:30 | Emergency (ER) | payer MEDICARE ==
[~2020-08-11] VITALS: Ht 170.2 cm; Wt 78.8 kg
[~2020-08-11 06:30] MED LIST changes: -DONE5TAB82; -E-Z-GAS II EFFERVESCENT PACKET (SODIUM BICARB./CITRIC ACID/SIMETHICONE) As Ordered ONE; -E-Z-HD 98% w/w 340GM SUSP BTL As Ordered ONE; -E-Z-PAQUE 96% w/w SUSP 176GM BTL As Ordered ONE; -ROPI0.5T3
[2020-08-11] MEDS ORDERED: ROPI0.5T3 (06:49)
[2020-08-11] MEDS ORDERED: DONE5TAB82 (06:49)
[2020-08-11 07:01] LABS: BASO % 0.5 % (0.0-1.0); EOS # 0.1 10^3/uL (0.0-0.5); EOS % 0.9 % (0.0-3.0); HEMATOCRIT 35.9 % (42.0-52.0); LYMPH # 2.3 10^3/uL (1.5-5.0); LYMPH % 35.3 % (24.0-44.0); MEAN CORPUSCULAR HEMOGLOBIN 32.2 pg (27.0-33.0); MEAN CORPUSCULAR HGB CONC 33.4 g/dl (32.0-36.5); MEAN CORPUSCULAR VOLUME 96.2 fl (80.0-96.0); MONO # 0.5 10^3/uL (0.0-0.8); MONO % 7.5 % (0.0-5.0); NEUTROPHILS # 3.5 10^3/uL (1.5-8.5); NEUTROPHILS % 55.5 % (36.0-66.0); PLATELET COUNT, AUTOMATED 154 10^3/uL (150-450); RED BLOOD COUNT 3.73 10^6/uL (4.30-6.10); WHITE BLOOD COUNT 6.4 10^3/uL (4.0-10.0)
[2020-08-11 07:11] LABS: INR 1.2; PROTHROMBIN TIME 15.5 SECONDS (12.5-14.3)
--- NOTE | 2020-08-11 07:30 | REPVR ---
PROCEDURE INFORMATION: Exam: XR Chest, 1 View Exam date and time: 08/11/2020 6:57 AM Age: 79 years old Clinical indication: Other: Chest pain TECHNIQUE: Imaging protocol: XR of the chest Views: 1 view. COMPARISON: CR Chest, 2 view PA, Lat 05/26/2020 2:27 PM FINDINGS: Lungs: Unremarkable. No consolidation. Pleural space: Unremarkable. No pleural effusion. No pneumothorax. Heart/Mediastinum: The heart is enlarged. Bones/joints: Unremarkable. IMPRESSION: 1. No focal consolidation. 2. Cardiomegaly. Electronically signed by: Akbar Ross On 08/11/2020 07:30:11 AM
[2020-08-11 07:38] LABS: ALBUMIN 3.9 GM/DL (3.2-5.2); BILIRUBIN,DIRECT 0.3 MG/DL (0.0-0.2); BILIRUBIN,TOTAL 0.9 MG/DL (0.2-1.0); CK-MB VALUE MASS 2.6 NG/ML (<3.6); MB/CK RELATIVE INDEX 2.71 (< OR =4); TOTAL PROTEIN 6.6 GM/DL (6.4-8.2); TROPONIN I 0.03 NG/ML (< 0.10)
--- NOTE | 2020-08-11 08:26 | ECGEPIP ---
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
--- NOTE | 2020-08-11 11:05 | REPVR ---
PROCEDURE INFORMATION: Exam: CT Chest without Contrast Exam date and time: 08/11/20 (10:39am) Age: 79 years old Clinical indication: Left-sided chest wall pain TECHNIQUE: Imaging protocol: Computed tomography of the chest without contrast. 3D rendering (Not supervised by radiologist): MIP and/or 3D reconstructed images were created by the technologist. Radiation optimization: All CT scans at this facility use at least one of these dose optimization techniques: automated exposure control; mA and/or kV adjustment per patient size (includes targeted exams where dose is matched to clinical indication); or iterative reconstruction. COMPARISON: Portable CXR of 08/11/20 FINDINGS: Lungs: Probable mild bibasilar hypoventilatory changes. Mild left basilar atelectasis. No consolidation. No masses. Pleural space: Unremarkable. No pneumothorax. No pleural effusions. Heart: Cardiomegaly. No pericardial effusion. Coronary artery calcifications Aorta: . Atherosclerotic calcifications of the aorta. No aortic aneurysm. Lymph nodes: Unremarkable. No enlarged lymph nodes. Bones/joints: Unremarkable. No acute fracture. Compression deformity and some bone erosion / bone resorption involving the L2 (presumably) vertebral body. Multilevel degenerative thoracic spine changes. Soft tissues: Unremarkable. Upper abdomen: Posterior, exophytic right renal cyst (2 cm size), at the midpole level. Mildly nodular left adrenal gland (nonspecific finding) (most likely benign). IMPRESSION: No acute chest pathology. Cardiomegaly. Small peripheral right renal cyst (2 cm size). See additional comments above. Electronically signed by: Amirah Bassett On 08/11/2020 11:05:18 AM
[2020-08-11 12:46] VITALS: BP 175/72
--- NOTE | 2020-08-12 20:45 | ECGEPIP ---
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
== END 2020-08-11 12:58 | disposition home or self-care (01) ==
LOC: M ED 06:30
DX: I50.9 Heart failure, unspecified (principal); R07.89 Other chest pain; I51.7 Cardiomegaly; N28.1 Cyst of kidney, acquired; I48.91 Unspecified atrial fibrillation; R94.31 Abnormal electrocardiogram [ECG] [EKG]; I10 Essential (primary) hypertension; E78.5 Hyperlipidemia, unspecified; G20 Parkinson's disease; Z85.46 Personal history of malignant neoplasm of prostate; Z79.899 Other long term (current) drug therapy; Z91.018 Allergy to other foods; Z88.6 Allergy status to analgesic agent

== ENCOUNTER → 2020-10-15 | Outpatient (CLI) | payer MEDICARE ==
[~2020-10-15] MED LIST changes: -CARB25TA9; +CARB25TA9 PO; +D31000TA2 PO; +DONE5TAB82; +OMEP-218 PO; +POTA8CAP10 PO; +ROPI0.5T3 PO
[2020-10-15 10:41] LABS: HEMATOCRIT 35.2 % (42.0-52.0); HEMOGLOBIN 11.4 g/dl (13.5-17.5); MEAN CORPUSCULAR HEMOGLOBIN 31.5 pg (27.0-33.0); MEAN CORPUSCULAR HGB CONC 32.4 g/dl (32.0-36.5); MEAN CORPUSCULAR VOLUME 97.2 fl (80.0-96.0); PLATELET COUNT, AUTOMATED 147 10^3/uL (150-450); RED BLOOD COUNT 3.62 10^6/uL (4.30-6.10); WHITE BLOOD COUNT 6.4 10^3/uL (4.0-10.0)
[2020-10-15 11:22] LABS: ALBUMIN 3.8 GM/DL (3.2-5.2); BILIRUBIN,TOTAL 0.7 MG/DL (0.2-1.0); CALCIUM LEVEL 9.1 MG/DL (8.8-10.2); CREATININE FOR GFR 1.37 MG/DL (0.70-1.30); GLOMERULAR FILTRATION RATE 53.4 (>42); POTASSIUM SERUM 4.3 MEQ/L (3.5-5.1); PROSTATIC SPECIFIC AG MONITOR 0.59 NG/ML (< 4.00); THYROID STIMULATING HORMONE 0.714 uIU/ML (0.358-3.740); TOTAL PROTEIN 6.6 GM/DL (6.4-8.2)
== END ==
LOC: M LAB 10:17
PROVIDERS: ATTEND Family Medicine
DX: D64.9 Anemia, unspecified (principal); I10 Essential (primary) hypertension; R53.83 Other fatigue; R97.20 Elevated prostate specific antigen [PSA]

== ENCOUNTER 2020-10-17 12:59 | Inpatient (IN) | payer MEDICARE ==
[~2020-10-17] VITALS: Ht 175.3 cm; Wt 75.0 kg
[2020-10-17] MEDS: MIDODRINE 2.5 MG TAB PO SCH ×3 (09:37→19:52)
[~2020-10-17 12:59] MED LIST changes: -D31000TA2 PO; -OMEP-218 PO; -POTA8CAP10 PO
--- NOTE | 2020-10-17 13:42 | REP ---
INDICATION: Syncope COMPARISON: None. TECHNIQUE: Axial noncontrast images from the skull base to the thoracic inlet with coronal reformations. This CT examination was performed using the following dose reduction techniques: Automated exposure control, adjustment of mA and/or kv according to the patient's size, and use of iterative reconstruction technique. FINDINGS: Age-related atrophy, periventricular leukomalacia and microvascular ischemic changes are appreciated. The ventricles and sulci are symmetric. Lewis-white differentiation is maintained. There is no evidence for acute intracranial hemorrhage, mass/mass effect, pathology or infarction. No extra-axial fluid collection. Calvarium is intact. Paranasal sinuses and mastoid air cells are clear. IMPRESSION: Age related atrophy and microvascular ischemic changes. No acute intracranial hemorrhage, infarction, or mass/mass effect. <Electronically signed by Alejo Weiss > 10/17/20 0007
--- NOTE | 2020-10-17 13:44 | REP ---
INDICATION: Syncope COMPARISON: None. TECHNIQUE: Axial noncontrast images from the skull base to the thoracic inlet with coronal and sagittal re-formations This CT examination was performed using the following dose reduction techniques: Automated exposure control, adjustment of mA and/or kv according to the patient's size, and use of iterative reconstruction technique. FINDINGS: Age-related osteopenia and advanced multilevel degenerative changes are appreciated. Findings include endplate sclerosis/heterogeneity, osteophytosis, and disc space narrowing along with facet arthropathy and partial fusion at the C2-3 level. No acute fracture/compression injury or subluxation. Spinal canal is patent. Surrounding soft tissues are grossly unremarkable. IMPRESSION: Osteopenia and advanced multilevel degenerative spondylosis. No acute fracture/compression injury or subluxation. <Electronically signed by Alejo Weiss > 10/17/20 0432
--- NOTE | 2020-10-17 13:45 | REP ---
INDICATION: Syncope/near-syncope COMPARISON: 08/11/2020 TECHNIQUE: Portable AP view of the chest FINDINGS: The mediastinum and cardiac silhouette are stable cardiomegaly is again noted. The lung sullivan are clear without acute consolidation, effusion, or pneumothorax. Skeletal structures are intact. IMPRESSION: Cardiomegaly. No acute cardiopulmonary process appreciated. <Electronically signed by Alejo Weiss > 10/17/20 2651
[2020-10-17 13:50] LABS: BASO % 0.5 % (0.0-1.0); EOS % 0.6 % (0.0-3.0); HEMATOCRIT 33.1 % (42.0-52.0); LYMPH # 1.2 10^3/uL (1.5-5.0); LYMPH % 18.3 % (24.0-44.0); MEAN CORPUSCULAR HEMOGLOBIN 31.5 pg (27.0-33.0); MEAN CORPUSCULAR HGB CONC 33.2 g/dl (32.0-36.5); MEAN CORPUSCULAR VOLUME 94.8 fl (80.0-96.0); MONO # 0.4 10^3/uL (0.0-0.8); MONO % 6.4 % (0.0-5.0); NEUTROPHILS # 4.6 10^3/uL (1.5-8.5); NEUTROPHILS % 73.6 % (36.0-66.0); PLATELET COUNT, AUTOMATED 147 10^3/uL (150-450); RED BLOOD COUNT 3.49 10^6/uL (4.30-6.10); WHITE BLOOD COUNT 6.3 10^3/uL (4.0-10.0)
[2020-10-17 14:29] LABS: BLOOD UREA NITROGEN 31 MG/DL (7-18); CALCIUM LEVEL 8.8 MG/DL (8.8-10.2); CARBON DIOXIDE LEVEL 26 MEQ/L (21-32); CHLORIDE LEVEL 106 MEQ/L (98-107); CK-MB VALUE MASS 2.2 NG/ML (<3.6); CPK CREATINE PHOSPHOKINASE 108 U/L (39-308); CREATININE FOR GFR 1.34 MG/DL (0.70-1.30); ETHYL ALCOHOL (ETHANOL) < 0.003 % (0.000-0.010); FREE T4 1.37 NG/DL (0.76-1.46); GLOMERULAR FILTRATION RATE 54.7 (>42); GLUCOSE, FASTING 110 MG/DL (70-100); MAGNESIUM LEVEL 1.9 MG/DL (1.8-2.4); MB/CK RELATIVE INDEX 2.04 (< OR =4); NT-PRO BNP 2183 PG/ML (<450); POTASSIUM SERUM 4.4 MEQ/L (3.5-5.1); SODIUM LEVEL 138 MEQ/L (136-145); TROPONIN I 0.02 NG/ML (< 0.10)
[2020-10-17] MEDS ORDERED: POTA8CAP10 PO (17:17)
[2020-10-17] MEDS ORDERED: D31000TA2 PO (17:17)
[2020-10-17] MEDS ORDERED: OMEP-218 PO (17:17)
[2020-10-17] MEDS ORDERED: NS 500 ML IV ONE (18:15)
--- NOTE | 2020-10-17 18:17 | HPEPDOC ---
[facility] Medical History & Physical Date of Admission Oct 17, 2020 Date of Service: Oct 17, 2020 History and Physical CHIEF COMPLAINT: "I passed out for a few seconds: HISTORY OF PRESENT ILLNESS: 80 y/o male with past medical history significant for Afib, HTN, prostate cancer was in his usual state of health until lunch today when he passed out for a few seconds after getting a pepsi "out of the icebox." "That was the end of it." Pt collapsed on the floor witnessed by his , hitting his head onthe floor, and came to within a few seconds, w/o tonic clonic activity tongue biting or confusion. told him not to get up. EMS was called, and while heading to the ER, Tele showed a 3second pause which was not recorded. In the Er, EKG showed Afib 59 no ischemia, glucose was normal, ct head: no ich or cva, cxr neg, ct cspine no fracture. Pt denied prodromal symptoms prior to syncope and denied cp, sob, palpitations,diaphoresis,lightheadedness,dizziness, and had been doing well the last few weeks w/o fever,chills, cough, changes in appetite, brbpr,diarrhea, melena, black tarry stools, n/v/abd pain, b/l ue/le paresthesias, dysuria, urgency, frequency , changes in vsion, sore throat, ear pain, or sinus conges tion, rhinnorrhea. Hospitalist was asked to admit the patient for syncope due to slow afib, medication induced bradycardia, possible parkinson-related autonomic dysfunction, and orthostasis. No recent changes in medications. PAST MEDICAL HISTORY: Hypertension Afib Prostate Cancer CHF Dyslipidemia Parkinson's Disease PAST SURGICAL HISTORY: TRUS biopsy SOCIAL HISTORY: retired. denies recreational drug use, ETOH, tobacco abuse, lives w of 50 years. FAMILY HISTORY: mother and father . noncontributory due to dvanced age. ALLERGIES: Please see below. REVIEW OF SYSTEMS: negative 10point ROS aside from (+) findings on HPI HOME MEDICATIONS: Please see below. PHYSICAL EXAMINATION: VITAL SIGNS: seebelow GEN: no pallor or icterus. no respiratory distress. speaks in full sentences HEENT: face is symmetric tongue midline CARDIOVASCULAR:irregualarly irregular S1S2 bradycardic nondisplaced PMI no rubs or gallops LUNGS: AEBE CTAB no wheezing,rales, or rhonchi ABDOMEN: soft nt nd no rebound or guarding. +bs x 4quadrants no abd bruit. EXTREMITIES: no cyanosis, clubbing, or pitting edema NEURO: speech is fluent, face is symmetric. no dysmetria on finger to nose testing. 5/5/ x 4 extremities motor function. no sensory disturbance. EKG:afib 59 no acute ischemic changes. LABORATORY DATA: See below. IMAGING: INDICATION: Syncope COMPARISON: None. TECHNIQUE: Axial noncontrast images from the skull base to the thoracic inlet with coronal and sagittal re-formations This CT examination was performed using the following dose reduction techniques: Automated exposure control, adjustment of mA and/or kv according to the patient's size, and use of iterative reconstruction technique. FINDINGS: Age-related osteopenia and advanced multilevel degenerative changes are appre ciated. Findings include endplate sclerosis/heterogeneity, osteophytosis, and disc space narrowing along with facet arthropathy and partial fusion at the C2-3 level. No acute fracture/compression injury or subluxation. Spinal canal is patent. Surrounding soft tissues are grossly unremarkable. IMPRESSION: Osteopenia and advanced multilevel degenerative spondylosis. No acute fracture/compression injury or subluxation. <Electronically signed by Alejo Weiss > 10/17/20 1340 INDICATION: Syncope/near-syncope COMPARISON: 08/11/2020 TECHNIQUE: Portable AP view of the chest FINDINGS: The mediastinum and cardiac silhouette are stable cardiomegaly is again noted. The lung sullivan are clear without acute consolidation, effusion, or pneumothorax. Skeletal structures are intact. IMPRESSION: Cardiomegaly. No acute cardiopulmonary process appreciated. <Electronically signed by Alejo Weiss > 10/17/20 1341 Syncope COMPARISON: None. TECHNIQUE: Axial noncontrast images from the skull base to the thoracic inlet with coronal reformations. This CT examination was performed using the following dose reduction techniques: Automated exposure control, adjustment of mA and/or kv according to the patient's size, and use of iterative reconstruction technique. FINDINGS: Age-related atrophy, periventricular leukomalacia and microvascular ischemic changes are appreciated. The ventricles and sulci are symmetric. Lewis-white differentiation is maintained. There is no evidence for acute intracranial hemorrhage, mass/mass effect, pathology or infarction. No extra-axial fluid collection. Calvarium is intact. Paranasal sinuses and mastoid air cells are clear. IMPRESSION: Age related atrophy and microvascular ischemic changes. No acute intracranial hemorrhage, infarction, or mass/mass effect. <Electronically signed by Alejo Weiss > 10/17/20 6688 MICROBIOLOGY: Please see below. ASSESSMENT: 80 y/o male with past medical history significant for Afib, HTN, prostate cancer was in his usual state of health until lunch today when he passed out for a few seconds after getting a pepsi "out of the icebox." "That was the end of it." Pt collapsed on the floor witnessed by his , hitting his head onthe floor, and came to within a few seconds, w/o tonic clonic activity tongue biting or confusion. told him not to get up. EMS was called, and while heading to the ER, Tele showed a 3second pause which was not recorded. In the Er, EKG showed Afib 59 no ischemia, glucose was normal, ct head: no ich or cva, cxr neg, ct cspine no fracture. Pt denied prodromal symptoms prior to syncope and denied cp, sob, palpitations,diaphoresis,lightheadedness,dizziness, and had been doing well the last few weeks w/o fever,chills, cough, changes in appetite, brbpr,melena, black tarry stools, n/v/abd pain, b/l ue/le paresthesias, dysuria, urgency, frequency , changes in vsion, sore throat, ear pain, or sinus congestion, rhinnorrhea. Hospitalist was asked to admit the patient for syncope due to slow afib, medication induced bradycardia, possible parkinson-related autonomic dysfunction, and orthostasis. Syncope Orthostatic hypotension Afib with slow ventricular response Prostate Cancer CHF,compensated CKD stage 3 Dyslipidemia Parkinson's Disease PLAN: due to slow afib , tele to r/o symptomatic bradycardia, sinus pause, and hold rate control meds unless hr >100bpm. cycle cardiac markers, and check 2D 3chocardiogram. off tm for tests. trial of ns 500ml iv bolus due to orthostasis, decrease ropinirole dose, and hold diuretics until orthostasis has resolved. assisted ambulation only.fall precautions. monitor i/o, weigh daily. check covid-19 prior to admission. unlikely to be seizure since there was no postictal confusion or h/o cva in the past, and unlikely to be cva due to compliance w eliquis. depending on whether pt continues to have symptomatic bradyardia or difficult to control afib with tachy roshni syndrome/sick sinus syndrome, pt may need a pacemaker. will need to correct pt's orthostasis first. continue eliquis. Vital Signs Vital Signs Date Time Temp Pulse Resp B/P (MAP) Pulse Ox O2 Delivery O2 Flow Rate FiO2 10/17/20 13:54 58 129/69 (89) 65 129/62 (84) 82 167/70 (102) 10/17/20 13:03 18 100 Room Air Laboratory Data Labs 24H Laboratory Tests 2 10/17/20 13:38: Immature Granulocyte % (Auto) 0.6, Neutrophils (%) (Auto) 73.6H, Lymphocytes (%) (Auto) 18.3L, Monocytes (%) (Auto) 6.4H, Eosinophils (%) (Auto) 0.6, Basophils (%) (Auto) 0.5, Neutrophils # (Auto) 4.6, Lymphocytes # (Auto) 1.2L, Monocytes # (Auto) 0.4, Eosinophils # (Auto) 0.0, Basophils # (Auto) 0.0, Nucleated Red Blood Cells % (auto) 0.0, Anion Gap 6L, Glomerular Filtration Rate 54.7, Calcium Level 8.8, Magnesium Level 1.9, Total Creatine Kinase 108, Creatine Kinase MB 2.2, Creatine Kinase MB Relative Index 2.04, Troponin I 0.02, QJ-Xsl-P-Type Jerica riuretic Peptide 2183H, Thyroid Stimulating Hormone (TSH) 1.080, Free Thyroxine 1.37, Ethyl Alcohol Level < 0.003 10/17/20 13:45: Bedside Glucose (Misc Panel) 96 CBC/BMP Laboratory Tests 10/17/20 13:38 Home Medications Scheduled Benazepril HCl (Benazepril HCl) 40 Mg Tablet, 40 MG PO DAILY Carbidopa/Levodopa (Carbidopa-Levodopa 25-100 Tab) 1 Each Tablet, 1 TAB PO TID Cholecalciferol (Vitamin D3) (Vitamin D3) 1,000 Unit Tablet, 2,000 UNITS PO DAILY Dutasteride (Avodart) 0.5 Mg Capsule, 0.5 MG PO DAILY Furosemide (Furosemide) 20 Mg Tablet, 40 MG PO DAILY Omeprazole (Omeprazole) 20 Mg Capsule.dr, 20 MG PO BID Potassium Chloride (Potassium Chloride) 8 Meq Capsule.er, 16 MEQ PO DAILY Pravastatin Sodium (Pravastatin Sodium) 40 Mg Tablet, 40 MG PO QHS Rivaroxaban (Xarelto) 20 Mg Tablet, 20 MG PO DAILY with food Ropinirole HCl (Ropinirole HCl) 0.5 Mg Tablet, 0.5 MG PO TID Spironolactone (Spironolactone) 25 Mg Tablet, 12.5 MG PO DAILY Allergies Coded Allergies: naproxen (Verified Allergy, Unknown, 01/12/20) strawberry (Verified Allergy, Unknown, 02/26/19) A-FIB/CHADSVASC A-FIB History Current/History of A-Fib/PAF?: Yes Current PO Anticoag Therapy: Yes Age/Risk Factor Scoring CHADSVASC: CHADSVASC Response (Comments) Value Age Risk Factor Age >/= 75 years old 2 Gender Risk Factor Male 0 Hx of CHF Yes 1 Hx of HTN Yes 1 Hx of Stroke/TIA/or VTE No 0 Hx of Diabetes No 0 Hx of Vascular Disease No 0 Total 4 Treatment Treatment ordered: Apixaban MARYAM LOPEZ MD Oct 17, 2020 16:24
[2020-10-17] MEDS ORDERED: PILL CUTTER 1 EACH XX PRN (19:45)
[2020-10-17 20:00] VITALS: BP 157/74
[2020-10-17 20:10] VITALS: BP_SYST 153; BP_SYST 155; BP_SYST 157; BP_DIAS 74; BP_DIAS 79
--- NOTE | 2020-10-17 20:42 | ECGEPIP ---
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
[2020-10-17] MEDS ORDERED: ATROPINE SULF 1MG/10ML SYRINGE (J0461) IV PRN (21:45)
[2020-10-17] MEDS: SINEMET 25-100 MG TAB PO SCH (21:50)
[2020-10-17] MEDS: PRAVASTATIN 20 MG TAB PO SCH (21:50)
[2020-10-17] MEDS: OMEPRAZOLE 20 MG CAP PO SCH (21:51)
[2020-10-17] MEDS: rOPINIRole 0.25 MG TAB(REQUIP) PO SCH (21:53)
[2020-10-18] VITALS: BP_SYST 107; BP_SYST 123; BP_SYST 134; BP_DIAS 55; BP_DIAS 58; BP_DIAS 70; BP_DIAS 78
[2020-10-18 04:00] VITALS: BP_SYST 107; BP_SYST 132; BP_SYST 139; BP_DIAS 55; BP_DIAS 63; BP_DIAS 69
--- NOTE | 2020-10-18 07:51 | REP ---
INDICATION: renal failure r/o obstruction COMPARISON: 11/10/2019 TECHNIQUE: Real time nicole scale ultrasound examination using curved array transducer. FINDINGS: The bilateral kidneys are normal in size and reniform shape with increased parenchymal echotexture and increased central sinus fat consistent with chronic medical renal disease. There is no evidence for hydronephrosis, nephrolithiasis, cystic or renal mass lesion. Right kidney measures 10.7 x 4.8 x 6.2 cm. Left kidney measures 11.3 x 5.2 x 5.2 cm. Bladder is grossly unremarkable. IMPRESSION: Findings consistent with chronic medical renal disease. No hydronephrosis. <Electronically signed by Alejo Weiss > 10/18/20 0771
[2020-10-18 08:00] VITALS: BP_SYST 102; BP_SYST 130; BP_SYST 98; BP_DIAS 58; BP_DIAS 60; BP_DIAS 64
[2020-10-18] MEDS ORDERED: RIVAROXABAN 20 MG TAB (XARELTO) PO SCH (08:00)
[2020-10-18] MEDS: SINEMET 25-100 MG TAB PO SCH ×3 (09:34→21:12)
[2020-10-18] MEDS: POTASSIUM CHLORIDE 10 MEQ SR TABLET PO SCH (09:35)
[2020-10-18] MEDS: rOPINIRole 0.25 MG TAB(REQUIP) PO SCH ×3 (09:35→21:13)
[2020-10-18] MEDS: OMEPRAZOLE 20 MG CAP PO SCH ×2 (09:36→21:12)
[2020-10-18] MEDS: VITAMIN D 1,000 INTERNATIONAL UNITS TABLET PO SCH (09:36)
[2020-10-18] MEDS: DUTASTERIDE 0.5 MG CAP (AVODART) PO SCH (09:36)
[2020-10-18 12:00] VITALS: BP_SYST 110; BP_SYST 120; BP_SYST 98; BP_DIAS 58; BP_DIAS 60
[2020-10-18] MEDS: MIDODRINE 2.5 MG TAB PO SCH (13:46)
[2020-10-18 16:00] VITALS: BP 138/76
--- NOTE | 2020-10-18 16:14 | IPNPDOC ---
Date Seen The patient was seen on 10/18/20. Progress Note SUBJECTIVE: overnight, pt was noted to have HR 30-40's while sleeping, and was hemodynamically stable and asymptomatic. He denies sob, lightheadedness, dizziness, chest pian,presure, tightness, diaphresis, epigastric pain, n/v. anxious to go home. OBJECTIVE PHYSICAL EXAMINATION: VITAL SIGNS: see below GEN: awake and oriented, no pallor or respiratory distress. face is symmetric HEENT: no jvd no cervical LAD moist mm CARDIOVASCULAR:irregualarly irregular S1S2 bradycardic nondisplaced PMI no rubs or gallops LUNGS: AEBE CTAB no wheezing,rales, or rhonchi ABDOMEN: soft nt nd no rebound or guarding. +bs x 4quadrants no abd bruit. EXTREMITIES: no cyanosis, clubbing, or pitting edema NEURO: speech is fluent, face is symmetric. no dysmetria on finger to nose testing. 5/5/ x 4 extremities motor function. no sensory disturbance. EKG:afib 59 no acute ischemic changes. LABORATORY DATA: See below. IMAGING: INDICATION: Syncope COMPARISON: None. TECHNIQUE: Axial noncontrast images from the skull base to the thoracic inlet with coronal and sagittal re-formations This CT examination was performed using the following dose reduction techniques: Automated exposure control, adjustment of mA and/or kv according to the patient's size, and use of iterative reconstruction technique. FINDINGS: Age-related osteopenia and advanced multilevel degenerative changes are appreciated. Findings include endplate sclerosis/heterogeneity, osteophytosis, and disc space narrowing along with facet arthropathy and partial fusion at the C2-3 level. No acute fracture/compression injury or subluxation. Spinal canal is patent. Surrounding soft tissues are grossly unremarkable. IMPRESSION: Osteopenia and advanced multilevel degenerative spondylosis. No acute fracture/compression injury or subluxation. <Electronically signed by Alejo Weiss > 10/17/20 1340 INDICATION: Syncope/near-syncope COMPARISON: 08/11/2020 TECHNIQUE: Portable AP view of the chest FINDINGS: The mediastinum and cardiac silhouette are stable cardiomegaly is again noted. The lung sullivan are clear without acute consolidation, effusion, or pneumothorax. Skeletal structures are intact. IMPRESSION: Cardiomegaly. No acute cardiopulmonary process appreciated. <Electronically signed by Alejo Vallebrun > 10/17/20 1341 Syncope COMPARISON: None. TECHNIQUE: Axial noncontrast images from the skull base to the thoracic inlet with coronal reformations. This CT examination was performed using the following dose reduction techniques: Automated exposure control, adjustment of mA and/or kv according to the patient's size, and use of iterative reconstruction technique. FINDINGS: Age-related atrophy, periventricular leukomalacia and microvascular ischemic changes are appreciated. The ventricles and sulci are symmetric. Lewis-white differentiation is maintained. There is no evidence for acute intracranial hemorrhage, mass/mass effect, pathology or infarction. No extra-axial fluid collection. Calvarium is intact. Paranasal sinuses and mastoid air cells are clear. IMPRESSION: Age related atrophy and microvascular ischemic changes. No acute intracranial hemorrhage, infarction, or mass/mass effect. <Electronically signed by Alejo Isela > 10/17/20 133 MICROBIOLOGY: Please see below. ASSESSMENT: 80 y/o male with past medical history significant for Afib, HTN, prostate cancer was in his usual state of health until lunch today when he passed out for a few seconds after getting a pepsi "out of the icebox." "That was the end of it." Pt collapsed on the floor witnessed by his , hitting his head onthe floor, and came to within a few seconds, w/o tonic clonic activity tongue biting or confusion. told him not to get up. EMS was called, and while heading to the ER, Tele showed a 3second pause which was not recorded. In the Er, EKG showed Afib 59 no ischemia, glucose was normal, ct head: no ich or cva, cxr neg, ct cspine no fracture. Pt denied prodromal symptoms prior to syncope and denied cp, sob, palpitations,diaphoresis,lightheadedness,dizziness, and had been doing well the last few weeks w/o fever,chills, cough, changes in appetite, brbpr,melena, black tarry stools, n/v/abd pain, b/l ue/le paresthesias, dysuria, urgency, frequency , changes in vsion, sore throat, ear pain, or sinus congestion, rhinnorrhea. Hospitalist was asked to admit the patient for syncope due to slow afib, medication induced bradycardia, possible parkinson-related autonomic dysfunction, and orthostasis. Syncope -found to have orthostatic hypotension which may be related to autonomic dysfunction from Parkinson's ,volume depletion from lasix, spironolactone, medication-induced from benazepril, and bradycardia with Telemetry: HR 30-40 while sleeping, with possible sick sinus syndrome. Echo ordered. sander setter consulted. diuretics and antihypertensive meds held. Orthostatic hypotension -tried 3 doses of midodrine with some improvement, held diuretics, appears to be stable and ambulated well.defer to cardiology to titrate meds Afib with slow ventricular response -not on rate control meds. on tele due to syncope. defer to cardiology Dr. Wilson, for further recommendations. not sure if pt needs pacer. Prostate Cancer -outpt urology fu CHF,compensated -off diuretics. keep strict i/o weigh daily. CKD stage 3 -at baseline. avoid nephrotoxins, renally dose meds Dyslipidemia -lipid panel check Parkinson's Disease -resumed on home meds. if remains orthostatic, may need midodrine chronically to stabilize possible autonomic dysfunction and neurology consult if needed. VS, I&O, 24H, Fishbone Vital Signs/I&O Vital Signs Date Time Temp Pulse Resp B/P (MAP) Pulse Ox O2 Delivery O2 Flow Rate FiO2 10/18/20 12:00 97.7 64 18 120/60 (80) 100 Room Air I&O- Last 24 Hours up to 6 AM 10/18/20 06:00 Intake Total 250 ml Output Total 225 ml Balance 25 ml Laboratory Data 24H LABS Laboratory Tests 2 10/17/20 16:26: Urine Color STRAW, Urine Appearance CLEAR, Urine pH 5.0, Urine Specific [place] 1.009, Urine Protein NEGATIVE, Urine Glucose (UA) NEGATIVE, Urine Ketones NEGATIVE, Urine Blood NEGATIVE, Urine Nitrite NEGATIVE, Urine Bilirubin NEGATIVE, Urine Urobilinogen 0.2, Urine Leukocyte Esterase NEGATIVE, Urine WBC (Auto) 0, Urine RBC (Auto) 1, Urine Hyaline Casts (Auto) 4, Urine Bacteria (Auto) NEGATIVE, Urine Squamous Epithelial Cells 0, Urine Sperm (Auto) , Coronav irus (COVID-19)(PCR) NEGATIVE MARYAM LOPEZ MD Oct 18, 2020 16:01
[2020-10-18 16:27] LABS: BASO % 0.4 % (0.0-1.0); EOS # 0.1 10^3/uL (0.0-0.5); EOS % 1.2 % (0.0-3.0); HEMOGLOBIN 11.4 g/dl (13.5-17.5); LYMPH # 1.7 10^3/uL (1.5-5.0); LYMPH % 32.1 % (24.0-44.0); MEAN CORPUSCULAR HEMOGLOBIN 31.1 pg (27.0-33.0); MEAN CORPUSCULAR HGB CONC 32.6 g/dl (32.0-36.5); MEAN CORPUSCULAR VOLUME 95.4 fl (80.0-96.0); MONO # 0.4 10^3/uL (0.0-0.8); MONO % 8.4 % (0.0-5.0); NEUTROPHILS % 57.7 % (36.0-66.0); PLATELET COUNT, AUTOMATED 153 10^3/uL (150-450); RED BLOOD COUNT 3.67 10^6/uL (4.30-6.10); WHITE BLOOD COUNT 5.1 10^3/uL (4.0-10.0)
[2020-10-18 17:06] LABS: BLOOD UREA NITROGEN 20 MG/DL (7-18); CALCIUM LEVEL 9.2 MG/DL (8.8-10.2); CARBON DIOXIDE LEVEL 30 MEQ/L (21-32); CHLORIDE LEVEL 105 MEQ/L (98-107); CREATININE FOR GFR 1.02 MG/DL (0.70-1.30); GLOMERULAR FILTRATION RATE > 60.0 (>42); GLUCOSE, FASTING 104 MG/DL (70-100); POTASSIUM SERUM 4.4 MEQ/L (3.5-5.1); SODIUM LEVEL 137 MEQ/L (136-145)
[2020-10-18 20:00] VITALS: BP 157/71
[2020-10-18] MEDS: PRAVASTATIN 20 MG TAB PO SCH (21:12)
--- NOTE | 2020-10-18 21:31 | IPN ---
PACEMAKER SERVICE NOTE DATE: 10/18/2020 HISTORY OF PRESENT ILLNESS: Dr. Wilson, the patient's Beam Warper requested I see Mr. Seymour regarding his recent syncopal spell and telemetry documented intermittent high grade AV block. The patient is known to have permanent atrial fibrillation with previously controlled ventricular response without negative chronotropic therapy. He also has a history of Parkinson's disease. October 17 2020 he was taken to the Emergency Room by ambulance because of a syncopal spell. He apparently was standing opening the refrigerator when he abruptly collapsed, hitting his head. His loss of awareness was apparently brief, but he did sustain a small laceration on his left forearm. His initial EKG showed underlying atrial fibrillation with somewhat slow ventricular response, averaging 59 beats per minute. Negative QRS complexes are narrow with somewhat prominent R-waves in V-1 through V-4, suggestive of right ventricular hypertrophy versus prior posterior wall myocardial infarction. This tracing was not significantly changed from August 11, 2020. LABORATORY STUDIES: Blood work showed a stable mild anemia with normal white blood cell count. His electrolytes were in balance. He has mild renal insufficiency. Ultrasensitive TSH was normal at 1.08. His pro BNP level was elevated at 2,183. IMAGING: Chest x-ray showed cardiomegaly without obvious pulmonary venous congestion or interstitial edema. SUBJECTIVE: I proceeded to introduce myself to the patient in preparation for possible scheduling of permanent single chamber ventricular demand pacemaker. The patient was quite belligerent and began swearing at me. I subsequently spoke with his , Reyna, who again describes her having intermittent confusion and dementia. She appeared to understand the need for permanent pacemaker implantation in hopes of preventing significant bradyarrhythmia and possible recurrent falls with potential injury, especially with his chronic oral anticoagulant therapy. She plans to discuss this further with other family members and with her , but at this point is in favor of us proceeding. At this point he is on Xarelto oral anticoagulant therapy which will be placed on hold. Our tentative plan would be to insert a single chamber ventricular demand pacemaker under monitored local anesthesia on October 20, 2020. We will continue to monitor him with you and appreciate the opportunity to participate in his care.
[2020-10-19] VITALS: BP 109/53
[2020-10-19 04:00] VITALS: BP 132/70
[2020-10-19] MEDS ORDERED: OLANZapine INTRAMUSCULAR 10MG VIAL IM ONE (05:00)
[2020-10-19 05:48] LABS: BASO % 0.3 % (0.0-1.0); EOS # 0.1 10^3/uL (0.0-0.5); EOS % 1.7 % (0.0-3.0); HEMATOCRIT 34.8 % (42.0-52.0); HEMOGLOBIN 11.4 g/dl (13.5-17.5); LYMPH # 1.7 10^3/uL (1.5-5.0); LYMPH % 30.1 % (24.0-44.0); MEAN CORPUSCULAR HEMOGLOBIN 31.2 pg (27.0-33.0); MEAN CORPUSCULAR HGB CONC 32.8 g/dl (32.0-36.5); MEAN CORPUSCULAR VOLUME 95.3 fl (80.0-96.0); MONO # 0.5 10^3/uL (0.0-0.8); MONO % 8.4 % (0.0-5.0); NEUTROPHILS # 3.4 10^3/uL (1.5-8.5); NEUTROPHILS % 59.2 % (36.0-66.0); PLATELET COUNT, AUTOMATED 145 10^3/uL (150-450); RED BLOOD COUNT 3.65 10^6/uL (4.30-6.10); WHITE BLOOD COUNT 5.7 10^3/uL (4.0-10.0)
[2020-10-19 06:13] LABS: BLOOD UREA NITROGEN 21 MG/DL (7-18); CALCIUM LEVEL 9.2 MG/DL (8.8-10.2); CARBON DIOXIDE LEVEL 27 MEQ/L (21-32); CHLORIDE LEVEL 106 MEQ/L (98-107); CREATININE FOR GFR 0.98 MG/DL (0.70-1.30); GLOMERULAR FILTRATION RATE > 60.0 (>42); GLUCOSE, FASTING 97 MG/DL (70-100); POTASSIUM SERUM 3.8 MEQ/L (3.5-5.1); SODIUM LEVEL 139 MEQ/L (136-145)
[2020-10-19 07:20] VITALS: BP 165/76
[2020-10-19] MEDS: rOPINIRole 0.25 MG TAB(REQUIP) PO SCH ×3 (09:03→20:48)
[2020-10-19] MEDS: OMEPRAZOLE 20 MG CAP PO SCH ×2 (09:04→20:47)
[2020-10-19] MEDS: SINEMET 25-100 MG TAB PO SCH ×3 (09:04→20:48)
[2020-10-19] MEDS: VITAMIN D 1,000 INTERNATIONAL UNITS TABLET PO SCH (09:04)
[2020-10-19] MEDS: POTASSIUM CHLORIDE 10 MEQ SR TABLET PO SCH (09:05)
[2020-10-19] MEDS: DUTASTERIDE 0.5 MG CAP (AVODART) PO SCH (09:05)
--- NOTE | 2020-10-19 09:38 | IPN ---
PROGRESS NOTE DATE: 10/19/2020 SUBJECTIVE: I saw Mr. Seymour this morning, unfortunately after my encounter with him last night he became shortly thereafter quite agitated and when Dr. Bryson came to see him to talk to him about pacemaker placement he apparently was very aggressive. Throughout the night he did not get hardly any sleep. This morning he seems to be a little sedated. He is still clearly disoriented and cannot provide any reasonable history but at least he is calm. I reviewed his telemetry tracings and he remains in atrial fibrillation. His ventricular rate is improved some. The average was probably around 50. There were no extreme pauses or extreme episodes of bradycardia. PHYSICAL EXAMINATION: VITAL SIGNS: Blood pressure was recorded as 130/70, heart rate is as above, he is afebrile, saturation is 100% on room air. Weight was not recorded this morning. GENERAL: He is alert but not oriented. It is impossible to carry on a reasonable conversation even when he is calm. It is also challenging to perform an exam as he is very restless. I did not do any evaluation of his lungs or heart consequently. LABORATORY DATA: Normal basic metabolic panel and normal CBC with the exception of mild anemia. ASSESSMENT AND PLAN: Mr. Vance is a 80-year-old man who has chronic atrial fibrillation and who came to the hospital with a syncopal event at home. He has been relatively bradycardic for several years but never had any problems of a similar kind. At this point, we were able to demonstrate episodes of bradycardia in the 30s during this state. Consequently, I believe it is likely that the syncopal episode at least in part was due to bradycardia and I believe that implantation of a single chamber pacemaker is warranted. The procedure is tentatively scheduled for . I will contact the patient's to have a discussion about this issue because clearly the patient is not able to give informed consent in his current condition. We will continue holding his Xarelto and he got a last dose a little less than 24 hours ago. NICOLED
--- NOTE | 2020-10-19 10:54 | CR ---
CONSULTATION REFERRING PHYSICIAN: Lorene Flores MD INDICATIONS: Syncope, bradycardia. HISTORY OF PRESENT ILLNESS: Mr. Seymour is known to me as a 80-year-old man who has chronic atrial fibrillation and chronic diastolic congestive heart failure. He presented to this hospital after he suffered a syncopal event at home. Unfortunately, the details of the events are somewhat murky. The patient is a very limited historian and does not provide much information. He does recall that he was getting Pepsi out of the fridge and shortly thereafter passed out but he cannot tell me whether he had any warning symptoms and he cannot give me any details of what he did just preceding the event. But nevertheless, he quickly recovered his consciousness and his , who witnessed the episode, called 911. On their arrival, his vital signs were unremarkable but shortly after arrival to our emergency room, he apparently had a pause approximately three seconds that unfortunately was not documented but he was symptomatic during the event. He has since been monitored on telemetry and continues to be in atrial fibrillation, which is chronic, with slow ventricular response sometimes in the 30s even during the daytime when he is not sleeping. He has not had any pauses that were documented on telemetry and he has not had any symptoms since he has been in the hospital. When I talked to the patient he was mildly confused and not all his answers were appropriate but according to the nurse, he just woke up from a nap. But, patient denies any sensation of palpitations, chest pain or shortness of breath. PAST MEDICAL HISTORY: 1. Chronic atrial fibrillation. 2. Hypertension. 3. Hyperlipidemia. 4. Chronic hyponatremia. 5. History of CVA and diastolic congestive heart failure. OUTPATIENT MEDICATIONS: - Lotensin 40 mg daily - Sinemet 25/200 three times a day - Vitamin D - Avodart 0.5 mg a day - furosemide 40 mg a day - pravastatin 40 mg a day - Requip 0.5 mg a day - Aldactone 12.5 mg a day - Xarelto 20 mg daily. SOCIAL HISTORY: The patient is and lives with his . There is no history of smoking and no history of alcohol use. Additional medical history that is not pertinent to his present illness is positive for history of skin cancer on the bridge of his nose that was treated with radiation therapy, prostate cancer treated with radiation therapy. He had an echocardiogram in 2011 that was unremarkable but for mild atrial enlargement, and a nuclear stress in 2009 which was negative. SURGICAL HISTORY: Positive for excision of skin lesions. FAMILY HISTORY: Mother of cancer and father of heart disease. REVIEW OF SYSTEMS: He denies any recent fever, chills, nausea, vomiting, chest pain, shortness of breath or palpitations. He denies additional episodes of syncope. No peripheral edema. No bleeding problems. PHYSICAL EXAMINATION: Mr. Seymour is an elderly man who appears at no distress; alert and oriented, and appropriate. The last blood pressure documented was 120/60 in supine position, 110/58 sitting position and 98/58 in standing position. Heart rate has been anywhere from 30s to 60s, atrial fibrillation. No long pauses; no ventricular tachycardia based on court recording monitor. Saturation is 100% on room air, and he is afebrile. Weight was recorded as 76.1 kg as of yesterday. He is alert and oriented times two. He initially had trouble remembering the orientation in place. His jugular venous pressure (JVP) is not high. I do not appreciate bruit over the carotid arteries. Lungs are clear; good air movement. Heart exam reveals irregular rhythm with bradycardic rate. I do not appreciate a murmur, gallop or rub. Abdomen is soft without tenderness or rebound tenderness. Extremities are free of edema. Peripheral pulses are present. Neurologically, he has a generalized tremor consistent with Parkinson's disease. I do not appreciate any focal weakness. LABORATORY DATA: CBC: WBC count 5.1, hemoglobin 11.4, hematocrit 35, platelet count 153,000. Basic metabolic panel: Sodium 137, potassium 4.4, BUN 20, creatinine 1.0, glucose 104. Urinalysis was negative for protein, glucose and for bacteria. IMAGING DATA: Chest x-ray revealed borderline cardiomegaly but otherwise was unremarkable. Neuro imaging was positive for chronic atrophic changes corresponding to his age but no focal abnormalities. EKG revealed atrial fibrillation with bradycardic rate and a narrow QRS complex. ASSESSMENT AND PLAN: Mr. Seymour is a 80-year-old man who suffered a syncopal event at home. Unfortunately, the details of the circumstances are not readily available but based on limited information it sounds more an orthostatic than arrhythmic event. But, then in the emergency room he apparently had a symptomatic pause of about three seconds and he has been quite bradycardic since with heart rate often dipping into the low 30s even when he is awake. He has not done any ambulation of significance while in PCU. Because the bradycardia has been chronic and we have been noticing it on an outpatient basis for actually several years, but he was never symptomatic and consequently I did not feel it was appropriate to consider pacemaker but in this setting I believe we already have enough evidence to warrant pacemaker placement. I spoke about this with the patient. He wants to think about it and will make a final determination tomorrow morning. I will make preliminary arrangements to tentatively plan on the procedure within the next 2 or 3 days. His last dose of Xarelto was administered this morning so, in my opinion, it is unlikely that the procedure would be performed tomorrow. In the interim, he will be monitored on telemetry. I do not see any truly high-risk features that would necessitate placement of a temporary pacemaker or make the procedure truly urgent.
[2020-10-19 12:03] VITALS: BP 142/72
--- NOTE | 2020-10-19 15:07 | REP ---
INDICATION: AMS. COMPARISON: October 17, 2020.. TECHNIQUE: Helical scanning is acquired. 5 mm axial images were reformatted. Coronal MPR images were generated. FINDINGS: Bone window settings demonstrate intact bony calvarium. No bony destructive lesion is seen. There is fairly heavy vascular calcification in the distal vertebral and distal internal carotid arteries bilaterally. The visualized paranasal sinuses are clear. On soft tissue window settings, there is generalized volume loss. There is an old lacunar infarct in the anterior limb of the right internal capsule unchanged from comparison study October 17, 2020 and small-vessel atherosclerotic changes are again noted also stable from the prior exam. There is no evidence of intracranial hemorrhage. No acute infarction is appreciated. No mass, extra-axial fluid collection, or midline shift is seen. IMPRESSION: There is generalized volume loss and vascular calcification. Small-vessel atherosclerotic changes are seen. There is an old lacunar infarct in the anterior limb of the right internal capsule. No acute intracranial abnormality.. <Electronically signed by Eusebio Levin > 10/19/20 4645
[2020-10-19 16:00] VITALS: BP 135/80
[2020-10-19 20:00] VITALS: BP 142/76
--- NOTE | 2020-10-19 20:41 | IPNPDOC ---
Subjective Date Seen The patient was seen on 10/19/20. Subjective Chief Complaint/HPI Mr. Seymour is a 80 year old male here with syncope 2/2 bradycardia. This morning, he was seen up and trying to walk in the hallway. He did not want to sit down. Denied any chest pain, dyspnea, abdominal pain, or dysuria. This afternoon, his was present. She says that this is the most confused she has ever seen him. He tells me that he was in an office across the street and did not know he was in the hospital. Ordered CT head which was negative. Objective Physical Examination General Exam: Negative: Cooperative Eye Exam: Positive: EOMI; Negative: Sclera icteric ENT Exam: Positive: Atraumatic Neck Exam: Negative: thyromegaly Chest Exam: Positive: Clear to auscultation; Negative: Rales, Rhonchi, Wheezing Heart Exam: Positive: Rate Normal, Regular Rhythm Abdomen Exam: Positive: Normal bowel sounds, Soft; Negative: Tenderness Extremity Exam: Negative: Edema Neuro Exam: Positive: Normal Speech Psych Exam: Negative: Mental status NL, Oriented x 3 Assessment /Plan Assessment Mr. Seymour is a 80 year old male here with syncope 2/2 bradycardia. Cardiology has been consulted, planning for pacemaker placement on . Otherwise, he has been demonstrating hospital psychosis. Will start on Seroquel tonight. Plan/VTE VTE Prophylaxis Ordered?: Yes Plan 1. Syncope -Secondary to bradycardia -Cardiology following, recommendations appreciated -Plan for pacemaker placement this 2. A. fib with slow ventricular response -Xarelto held for planned proceedure -Cardiology following, recommendations appreciated -Plan for pacemaker placement this 3. Parkinson's disease -Continue Carbidopa/levodopa 4. Hospital psychosis -Start Seroquel tonight 5. DVT ppx -Restart rivaroxaban after surgery VS, I&O, 24H, Fishbone Vital Signs/I&O Vital Signs Date Time Temp Pulse Resp B/P (MAP) Pulse Ox O2 Delivery O2 Flow Rate FiO2 10/19/20 20:00 97.8 59 18 142/76 (98) 98 Room Air I&O- Last 24 Hours up to 6 AM 10/19/20 06:00 Intake Total 750 ml Output Total 225 ml Balance 525 ml Laboratory Data 24H LABS Laboratory Tests 2 10/19/20 05:29: Immature Granulocyte % (Auto) 0.3, Neutrophils (%) (Auto) 59.2, Lymphocytes (%) (Auto) 30.1, Monocytes (%) (Auto) 8.4H, Eosinophils (%) (Auto) 1.7, Basophils (%) (Auto) 0.3, Neutrophils # (Auto) 3.4, Lymphocytes # (Auto) 1.7, Monocytes # (Auto) 0.5, Eosinophils # (Auto) 0.1, Basophils # (Auto) 0.0, Nucleated Red Blood Cells % (auto) 0.0 10/19/20 05:30: Anion Gap 6L, Glomerular Filtration Rate > 60.0, Calcium Level 9.2 CBC/BMP Laboratory Tests 10/19/20 05:29 10/19/20 05:30 MARIANA JONES DO Oct 19, 2020 20:41
[2020-10-19] MEDS: PRAVASTATIN 20 MG TAB PO SCH (20:48)
[2020-10-19] MEDS ORDERED: QUEtiapine FUMARATE 25 MG TAB PO SCH (21:00)
[2020-10-20] VITALS: BP 148/64
[2020-10-20] MEDS ORDERED: OLANZapine INTRAMUSCULAR 10MG VIAL IM ONE (03:00)
[2020-10-20 04:00] VITALS: BP 135/75
[2020-10-20 07:18] VITALS: BP 141/70
[2020-10-20 08:20] LABS: BASO % 0.5 % (0.0-1.0); EOS # 0.1 10^3/uL (0.0-0.5); EOS % 1.2 % (0.0-3.0); HEMATOCRIT 34.9 % (42.0-52.0); HEMOGLOBIN 11.3 g/dl (13.5-17.5); LYMPH # 0.8 10^3/uL (1.5-5.0); LYMPH % 14.4 % (24.0-44.0); MEAN CORPUSCULAR HEMOGLOBIN 31.1 pg (27.0-33.0); MEAN CORPUSCULAR HGB CONC 32.4 g/dl (32.0-36.5); MEAN CORPUSCULAR VOLUME 96.1 fl (80.0-96.0); MONO # 0.4 10^3/uL (0.0-0.8); MONO % 7.4 % (0.0-5.0); NEUTROPHILS # 4.4 10^3/uL (1.5-8.5); NEUTROPHILS % 76.1 % (36.0-66.0); PLATELET COUNT, AUTOMATED 144 10^3/uL (150-450); RED BLOOD COUNT 3.63 10^6/uL (4.30-6.10); WHITE BLOOD COUNT 5.7 10^3/uL (4.0-10.0)
[2020-10-20 08:51] LABS: BLOOD UREA NITROGEN 21 MG/DL (7-18); CALCIUM LEVEL 9.3 MG/DL (8.8-10.2); CARBON DIOXIDE LEVEL 26 MEQ/L (21-32); CHLORIDE LEVEL 107 MEQ/L (98-107); CREATININE FOR GFR 1.03 MG/DL (0.70-1.30); GLOMERULAR FILTRATION RATE > 60.0 (>42); GLUCOSE, FASTING 126 MG/DL (70-100); POTASSIUM SERUM 4.1 MEQ/L (3.5-5.1); SODIUM LEVEL 139 MEQ/L (136-145)
[2020-10-20] MEDS: DUTASTERIDE 0.5 MG CAP (AVODART) PO SCH ×2 (09:00→09:14)
[2020-10-20] MEDS: VITAMIN D 1,000 INTERNATIONAL UNITS TABLET PO SCH ×2 (09:00→09:14)
[2020-10-20] MEDS: rOPINIRole 0.25 MG TAB(REQUIP) PO SCH ×2 (09:00→09:14)
[2020-10-20] MEDS: POTASSIUM CHLORIDE 10 MEQ SR TABLET PO SCH ×2 (09:00→09:15)
[2020-10-20] MEDS: SINEMET 25-100 MG TAB PO SCH ×2 (09:00→09:15)
[2020-10-20] MEDS: OMEPRAZOLE 20 MG CAP PO SCH ×3 (09:00→20:53)
[2020-10-20 12:32] VITALS: BP 123/67
--- NOTE | 2020-10-20 13:38 | ECHO ---
DATE OF PROCEDURE: 10/18/2020 Age: 80 Gender: Male Height: 175 cm Weight: 76 kg REFERRING PHYSICIAN: Lorene Flores MD INDICATION: Syncope. MEASUREMENTS: IVS 1.0 cm LV 5.2 cm LVPW 1.0 cm LA 4.4 cm Aorta 3.3 cm RV 3.6 cm IVC 2.7 cm Left atrial volume index 78 FINDINGS: This study is of good technical quality. The patient is in atrial fibrillation with slow ventricular response. Left ventricle is of normal size and systolic function with estimated LVEF of 60% to 65%. No segmental wall motion abnormalities are appreciated. Right ventricle also is of normal size and systolic function. Both atria are severely enlarged, left atria much more than the right. Aortic valve is mildly sclerotic, but it is tricuspid and has normal mobility. Mitral, tricuspid, and pulmonic valves appear normal. No pericardial effusion is noted. Inferior vena cava is dilated and there is no significant collapse with inspiration indicative of very high CVP. Aortic root appears normal. Aortic arch and abdominal aorta were not well seen. Doppler interrogation reveals no aortic stenosis and trace insufficiency. There is mild mitral and probably moderate tricuspid insufficiency. Calculated pulmonary artery pressure is approximately 50 to 55 mmHg corresponding to moderate pulmonary hypertension. Trace pulmonic insufficiency is seen. Evaluation of diastolic function is inconclusive due to underlying atrial fibrillation. CONCLUSIONS: 1. Study is of good technical quality, patient is in atrial fibrillation with slow ventricular response. 2. Normal left ventricular (LV) size with preserved left ventricular (LV) systolic function. 3. Aortic sclerosis with no stenosis and trace insufficiency. 4. Mild mitral insufficiency. 5. Moderate tricuspid insufficiency. 6. Severe biatrial enlargement. 7. Elevated central venous pressure and likely moderate pulmonary hypertension. MTDD
[2020-10-20 16:00] VITALS: BP 144/68
--- NOTE | 2020-10-20 19:10 | IPNPDOC ---
Subjective Date Seen The patient was seen on 10/20/20. Subjective Chief Complaint/HPI Mr. Seymour is a 80 year old male with Parkinson's here with syncope 2/2 bradycardia. Last night he was not able to sleep. He is agitated and this morning is given olanzapine. When I saw him he was confused and hallucinating. I convinced him to take a nap. Revisited in the afternoon, and says that he was doing better than when compared to the morning. Less agitated and eating well. Otherwise patient denies any fever, chest pain, dyspnea, abdominal pain, or dysuria. Objective Physical Examination General Exam: Negative: Cooperative Eye Exam: Positive: EOMI; Negative: Sclera icteric ENT Exam: Positive: Atraumatic Neck Exam: Negative: thyromegaly Chest Exam: Positive: Clear to auscultation; Negative: Rales, Rhonchi, Wheezing Heart Exam: Positive: Rate Normal, Regular Rhythm Abdomen Exam: Positive: Normal bowel sounds, Soft; Negative: Tenderness Extremity Exam: Negative: Edema Neuro Exam: Positive: Normal Speech Psych Exam: Negative: Mental status NL, Oriented x 3 Assessment /Plan Assessment Mr. Seymour is a 80 year old male with Parkinson's disease here with syncope 2/2 bradycardia. Cardiology has been consulted, planning for pacemaker placement on . Otherwise, he has been demonstrating hospital psychosis/delirium. His Parkinson's medication and insomnia may contribute to his delirium. We will discontinue his Parkinson's medication and increase his Seroquel tonight. Plan/VTE VTE Prophylaxis Ordered?: Yes Plan 1. Syncope -Secondary to bradycardia -Cardiology following, recommendations appreciated -Plan for pacemaker placement this -NPO tonight 2. A. fib with slow ventricular response -Xarelto held for planned procedure -Cardiology following, recommendations appreciated -Plan for pacemaker placement this 3. Parkinson's disease -Suspecting Carbidopa/levodopa and ropinirole contributing to his delirium. Holding medications at this time 4. Hospital psychosis/delirium -Denies pain. He has been having bowel movements -Suspecting cause to be a combination of dementia/Parkinson's, Carbidopa/levodopa, and insomnia -Discontinue Carbidopa/levodopa and ropinirole. -Increased Seroquel -May need to use IM olanzapine for agitation 5. DVT ppx -Restart rivaroxaban after surgery VS, I&O, 24H, Federico Vital Signs/I&O Vital Signs Date Time Temp Pulse Resp B/P (MAP) Pulse Ox O2 Delivery O2 Flow Rate FiO2 10/20/20 16:00 98.1 66 20 144/68 (93) 97 Room Air I&O- Last 24 Hours up to 6 AM 10/20/20 06:00 Intake Total 1500 ml Output Total 0 ml Balance 1500 ml Laboratory Data 24H LABS Laboratory Tests 2 10/20/20 08:04: Immature Granulocyte % (Auto) 0.4, Neutrophils (%) (Auto) 76.1H, Lymphocytes (%) (Auto) 14.4L, Monocytes (%) (Auto) 7.4H, Eosinophils (%) (Auto) 1.2, Basophils (%) (Auto) 0.5, Neutrophils # (Auto) 4.4, Lymphocytes # (Auto) 0.8L, Monocytes # (Auto) 0.4, Eosinophils # (Auto) 0.1, Basophils # (Auto) 0.0, Nucleated Red Blood Cells % (auto) 0.0, Anion Gap 6L, Glomerular Filtration Rate > 60.0, Calcium Level 9.3 CBC/BMP Laboratory Tests 10/20/20 08:04 MARIANA JONES DO Oct 20, 2020 18:55
[2020-10-20 19:52] VITALS: BP 161/67
[2020-10-20] MEDS ORDERED: LR 1,000 ML IV SCH (20:00)
[2020-10-20] MEDS: QUEtiapine FUMARATE 25 MG TAB PO SCH (20:49)
[2020-10-20] MEDS: PRAVASTATIN 20 MG TAB PO SCH (20:53)
[2020-10-21] VITALS (11 sets, daily range): BP systolic 132–170; BP diastolic 68–77
[2020-10-21 05:15] LABS: BASO % 0.4 % (0.0-1.0); EOS # 0.1 10^3/uL (0.0-0.5); EOS % 2.3 % (0.0-3.0); HEMATOCRIT 31.3 % (42.0-52.0); HEMOGLOBIN 10.2 g/dl (13.5-17.5); LYMPH # 1.9 10^3/uL (1.5-5.0); LYMPH % 35.8 % (24.0-44.0); MEAN CORPUSCULAR HEMOGLOBIN 31.1 pg (27.0-33.0); MEAN CORPUSCULAR HGB CONC 32.6 g/dl (32.0-36.5); MEAN CORPUSCULAR VOLUME 95.4 fl (80.0-96.0); MONO # 0.6 10^3/uL (0.0-0.8); MONO % 10.8 % (0.0-5.0); NEUTROPHILS # 2.6 10^3/uL (1.5-8.5); NEUTROPHILS % 50.3 % (36.0-66.0); PLATELET COUNT, AUTOMATED 131 10^3/uL (150-450); RED BLOOD COUNT 3.28 10^6/uL (4.30-6.10); WHITE BLOOD COUNT 5.2 10^3/uL (4.0-10.0)
[2020-10-21 05:38] LABS: BLOOD UREA NITROGEN 23 MG/DL (7-18); CARBON DIOXIDE LEVEL 28 MEQ/L (21-32); CHLORIDE LEVEL 107 MEQ/L (98-107); CREATININE FOR GFR 0.91 MG/DL (0.70-1.30); GLOMERULAR FILTRATION RATE > 60.0 (>42); GLUCOSE, FASTING 91 MG/DL (70-100); POTASSIUM SERUM 4.1 MEQ/L (3.5-5.1); SODIUM LEVEL 139 MEQ/L (136-145)
[2020-10-21] MEDS ORDERED: ceFAZolin SOD 2 GM in IV 1 EA IV ONE (06:00)
[2020-10-21] MEDS ORDERED: LR 1,000 ML IV SCH (06:00)
[2020-10-21] MEDS: DUTASTERIDE 0.5 MG CAP (AVODART) PO SCH (09:56)
[2020-10-21] MEDS: VITAMIN D 1,000 INTERNATIONAL UNITS TABLET PO SCH (10:00)
[2020-10-21] MEDS: POTASSIUM CHLORIDE 10 MEQ SR TABLET PO SCH (10:00)
[2020-10-21] MEDS: OMEPRAZOLE 20 MG CAP PO SCH ×2 (10:00→21:47)
--- NOTE | 2020-10-21 10:41 | IPN ---
PROGRESS NOTE DATE: 10/21/2020 SUBJECTIVE: Mr. Seymour continued to be agitated throughout the day and night; but apparently around 4 a.m., finally fell asleep. When I entered the room, his was sitting next to him on a lap seat. He was dozing off, but he was arousable even though he would fall immediately asleep again. The telemetry monitoring throughout the night revealed ongoing bradycardia. He had a heart rate dropping into the 30s, even before he fell asleep, often as low as 32 or 33 beats per minute, and he had a few pauses slightly over 3 seconds. No syncopal events. OBJECTIVE: Blood pressure this morning 148/75. He is afebrile. Saturation 99% on room air. He is sleeping, arousable, but otherwise cannot cooperate. I did not do any formal physical exam as such. LABORATORY DATA: CBC: WBC count 5.2, hemoglobin 10.2, hematocrit 31.3, and platelet count 131,000. Basic metabolic panel is normal. ASSESSMENT AND PLAN: Mr. Seymour is a 80-year-old man who has chronic atrial fibrillation and has been chronically bradycardic, who presented with a syncopal event with very likely contribution of bradycardia. We have repeated documentation of heart rate in the low 30s when the patient is awake, including occasional pauses around 3 seconds. Consequently, I believe that the etiology of syncopal event is very likely at least in part due to bradycardia; even though, the mechanism sounds to be more orthostatic. Dr. Bryson was consulted and plans to proceed with pacemaker placement this afternoon. I had a repeated discussion with the patient's over the phone and then again today and he spoke to her as well. Because of his underlying dementia and agitation, it is likely that the procedure may need to be performed under general anesthesia. After it is completed then he, in my opinion, will be able to be discharged home fairly promptly hopefully tomorrow.
--- NOTE | 2020-10-21 14:46 | IPNPDOC ---
Subjective Date Seen The patient was seen on 10/21/20. Subjective Chief Complaint/HPI Mr. Seymour is a 80 year old male with Parkinson's here with syncope 2/2 bradycardia. He was awake until 4 AM. Then, most of the morning he has been asleep. Zyprexa was not used overnight. has been present in the room. She discussed pacemaker placement with cardiology. Plan for pacemaker placement this afternoon. Objective Physical Examination General Exam: Negative: Cooperative Eye Exam: Positive: EOMI; Negative: Sclera icteric ENT Exam: Positive: Atraumatic Neck Exam: Negative: thyromegaly Chest Exam: Positive: Clear to auscultation; Negative: Rales, Rhonchi, Wheezing Heart Exam: Positive: Rate Normal, Regular Rhythm Abdomen Exam: Positive: Normal bowel sounds, Soft; Negative: Tenderness Extremity Exam: Negative: Edema Neuro Exam: Positive: Normal Speech Psych Exam: Negative: Mental status NL, Oriented x 3 Assessment /Plan Assessment Mr. Seymour is a 80 year old male with Parkinson's disease here with syncope 2/2 bradycardia. Cardiology has been consulted, planning for pacemaker placement today. Otherwise, he has been demonstrating hospital psychosis/delirium. His Parkinson's medication and insomnia may contribute to his delirium. We will discontinue his Parkinson's medication and continue Seroquel. Plan/VTE VTE Prophylaxis Ordered?: Yes Plan 1. Syncope -Secondary to bradycardia -Cardiology following, recommendations appreciated -Plan for pacemaker placement today 2. A. fib with slow ventricular response -Xarelto held for planned procedure -Cardiology following, recommendations appreciated -Plan for pacemaker placement today 3. Parkinson's disease -Suspecting Carbidopa/levodopa and ropinirole contributing to his delirium. Holding medications at this time 4. Hospital psychosis/delirium -Denies pain. He has been having bowel movements -Suspecting cause to be a combination of dementia/Parkinson's, Carbidopa/levodopa, and insomnia -Discontinue Carbidopa/levodopa and ropinirole. -Continue Seroquel -May need to use IM olanzapine for agitation 5. DVT ppx -Restart rivaroxaban after surgery VS, I&O, 24H, Fishbone Vital Signs/I&O Vital Signs Date Time Temp Pulse Resp B/P (MAP) Pulse Ox O2 Delivery O2 Flow Rate FiO2 10/21/20 12:00 97.1 48 18 145/70 (95) 98 Room Air I&O- Last 24 Hours up to 6 AM 10/21/20 06:00 Intake Total 1080 ml Output Total 0 ml Balance 1080 ml Laboratory Data 24H LABS Laboratory Tests 2 10/21/20 04:41: Immature Granulocyte % (Auto) 0.4, Neutrophils (%) (Auto) 50.3, Lymphocytes (%) (Auto) 35.8, Monocytes (%) (Auto) 10.8H, Eosinophils (%) (Auto) 2.3, Basophils (%) (Auto) 0.4, Neutrophils # (Auto) 2.6, Lymphocytes # (Auto) 1.9, Monocytes # (Auto) 0.6, Eosinophils # (Auto) 0.1, Basophils # (Auto) 0.0, Nucleated Red Blood Cells % (auto) 0.0, Anion Gap 4L, Glomerular Filtration Rate > 60.0, Calcium Level 9.0 CBC/BMP Laboratory Tests 10/21/20 04:41 MARIANA JONES DO Oct 21, 2020 14:46
[2020-10-21] MEDS ORDERED: LIDOCAINE 1% SDV 30ML VIAL As Ordered ONE (16:17)
[2020-10-21] MEDS ORDERED: AMIODARONE HCL 360 MG/200 ML PREMIXED BAG (NEXTERONE) (J0282 PER 30MG) As Ordered ONE (16:17)
[2020-10-21] MEDS ORDERED: ISOVUE-300 61% 50ML VIAL As Ordered ONE (16:18)
[2020-10-21] MEDS ORDERED: BACITRACIN PWD 50,000 UNITS VIAL As Ordered ONE (16:19)
[2020-10-21] MEDS ORDERED: ceFAZolin 2 GM/D5W 50 ML IV BAG (J0690 PER 500MG) As Ordered ONE (16:59)
--- NOTE | 2020-10-21 18:08 | REP ---
INDICATION: POST OP I PACU. COMPARISON: 10/17/2020 TECHNIQUE: The technique utilized in obtaining the radiograph has magnified the cardiac silhouette and attenuated the interstitial markings. FINDINGS: A single chamber bipolar pacemaker device has been placed since the last exam. There is cardiomegaly accentuated by technique. The lung sullivan are clear and the pleural angles are sharp. There is no change in the osseous structures. IMPRESSION: There is no evidence of acute cardiopulmonary disease. Findings as described above. <Electronically signed by Gareth Isaac > 10/21/20 [id number]
[2020-10-21] MEDS ORDERED: ACETAMINOPHEN TAB 650MG DOSE (2X325MG) PO PRN (18:15)
--- NOTE | 2020-10-21 19:05 | ECGEPIP ---
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
[2020-10-21] MEDS: QUEtiapine FUMARATE 25 MG TAB PO SCH (21:00)
[2020-10-21] MEDS ORDERED: MORPHINE 2 MG/ML 1ML VIAL (J2270) IV PRN (21:15)
[2020-10-21] MEDS: PRAVASTATIN 20 MG TAB PO SCH (21:48)
[2020-10-22] MEDS: ceFAZolin SOD 1 GM in D5W MINI-BAG PLUS 50 ML IV SCH ×2 (01:45→08:53)
[2020-10-22 04:00] VITALS: BP 146/72
[2020-10-22 06:30] LABS: BASO % 0.3 % (0.0-1.0); EOS # 0.1 10^3/uL (0.0-0.5); EOS % 1.6 % (0.0-3.0); HEMATOCRIT 35.1 % (42.0-52.0); HEMOGLOBIN 11.4 g/dl (13.5-17.5); LYMPH # 1.2 10^3/uL (1.5-5.0); MEAN CORPUSCULAR HEMOGLOBIN 31.1 pg (27.0-33.0); MEAN CORPUSCULAR HGB CONC 32.5 g/dl (32.0-36.5); MEAN CORPUSCULAR VOLUME 95.9 fl (80.0-96.0); MONO # 0.5 10^3/uL (0.0-0.8); MONO % 7.7 % (0.0-5.0); NEUTROPHILS # 4.4 10^3/uL (1.5-8.5); NEUTROPHILS % 71.1 % (36.0-66.0); PLATELET COUNT, AUTOMATED 123 10^3/uL (150-450); RED BLOOD COUNT 3.66 10^6/uL (4.30-6.10); WHITE BLOOD COUNT 6.2 10^3/uL (4.0-10.0)
[2020-10-22 06:49] LABS: BLOOD UREA NITROGEN 20 MG/DL (7-18); CALCIUM LEVEL 8.8 MG/DL (8.8-10.2); CARBON DIOXIDE LEVEL 25 MEQ/L (21-32); CHLORIDE LEVEL 106 MEQ/L (98-107); GLOMERULAR FILTRATION RATE > 60.0 (>42); GLUCOSE, FASTING 80 MG/DL (70-100); POTASSIUM SERUM 3.9 MEQ/L (3.5-5.1); SODIUM LEVEL 139 MEQ/L (136-145)
[2020-10-22 07:46] VITALS: BP 152/74
[2020-10-22] MEDS: OMEPRAZOLE 20 MG CAP PO SCH (08:53)
[2020-10-22] MEDS: VITAMIN D 1,000 INTERNATIONAL UNITS TABLET PO SCH (08:53)
[2020-10-22] MEDS: POTASSIUM CHLORIDE 10 MEQ SR TABLET PO SCH (08:53)
[2020-10-22] MEDS: DUTASTERIDE 0.5 MG CAP (AVODART) PO SCH (08:53)
--- NOTE | 2020-10-22 09:32 | ECGEPIP ---
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
--- NOTE | 2020-10-22 10:07 | RO ---
OPERATIVE NOTE DATE OF OPERATION: 10/21/2020 PROCEDURE: Implantation of single chamber ventricular demand pacemaker. IMPLANTING GEM SETTER: Kaz Bryson M.D. ANESTHESIOLOGIST: Maxwell Cloud Jr. D.O. PREOPERATIVE DIAGNOSES: 1. Intermittent high-grade atrioventricular (AV) block. 2. Permanent atrial fibrillation. POSTOPERATIVE DIAGNOSES: 1. Intermittent high-grade atrioventricular (AV) block. 2. Permanent atrial fibrillation. ANESTHESIA: Monitored local anesthesia. DESCRIPTION OF PROCEDURE: Following informed consent (obtained from his due to his dementia), with the patient in the fasting state having received 2 grams IV premedication, he was taken to the operating theater. Numerous skin electrodes were applied to facilitate continuous electrocardiographic monitoring. The left subclavian region was prepped and draped in the usual fashion, and the skin was infiltrated with 1% Xylocaine. The left axillary vein was catheterized using the micropuncture technique. A 5 cm linear incision was made several cm below and parallel to the left clavicle. Dissection was carried down to the level of the pectoralis fascia and a pocket was fashioned below the level of the incision line. A single bipolar screw-in active fixation steroid-eluting pacing lead was then positioned to the right ventricular apex under fluoroscopic and electrocardiographic control. The ventricular lead ([employer], Model No. [id number]-60, Serial No. [id number]), measurements: stimulation thresholds 0.5 V/ 0.4ms/ impedance 772 ohms. The R wave amplitude measured 9.3 mV. This lead was secured in position with sleeve sutured at its insertion site. It was then connected to a single chamber pulse generator ([employer]), Model No. [id number], Serial No. [id number]), and appropriate VVI pacing was documented. The pulse generator was placed into the pocket and secured into position with a sleeve sutured at its insertion site. The subcutaneous tissues were approximated using running chromic suture and the skin was closed using kade. Dry dressing was applied, and the patient was returned to the recovery room in good condition. He should be able to be restarted on his Xarelto oral anticoagulation after 24 hours. No apparent complications. Estimated blood loss less than 5 mL. His postoperative portable upright chest x-ray showed good lead position with no pneumothorax. His postoperative EKG showed underlying atrial fibrillation with consistent ventricular paced rhythm at 60 BPM. MTDD
[2020-10-22 11:55] VITALS: BP 164/72
[2020-10-22] MEDS ORDERED: propofoL 500 MG/50 ML VIAL As Ordered ONE (14:10)
[2020-10-22] MEDS ORDERED: fentaNYL 100 MCG/2 ML INJECTION (J3010) As Ordered ONE (14:10)
[2020-10-22] MEDS ORDERED: LIDOCAINE 2% 100MG/5ML SDV (FOR ANES.) As Ordered ONE (14:10)
--- NOTE | 2020-10-22 20:35 | DS.PDOC ---
Discharge Summary General Date of Admission Oct 17, 2020 at 16:20 Date of Discharge Oct 22, 2020 Attending Physician: MARIANA JONES DO Specialist/Consultants [facility], Dr. Wilson, Dr. Bryson Discharge Summary PROCEDURES PERFORMED DURING STAY: Pacemaker placement on 10/21/2020 ADMITTING DIAGNOSES: 1. Syncope secondary to bradycardia 2. A. fib with slow ventricular response 3. Parkinson's disease 4. Possible psychosis/delirium 5. Insomnia DISCHARGE DIAGNOSES: 1. Syncope secondary to bradycardia 2. A. fib with slow ventricular response 3. Parkinson's disease 4. Possible psychosis/delirium 5. Insomnia COMPLICATIONS/CHIEF COMPLAINT: Syncope. HISTORY OF PRESENT ILLNESS: Mr. Seymour is a 80-year-old male with A. fib, hypertension, and prostate cancer who passed out for a few seconds after getting a Pepsi out of the icebox. The is present and witnessed the syncopal event. He hit his head on the floor, and then regained consciousness within a few seconds. No seizure-like activity was noticed. They called EMS who brought him to the ED. While in the ED, EKG demonstrated A. fib with slow ventricular response. HOSPITAL COURSE: During his hospitalization, he periodically became bradycardic in the 30s. Cardiology was consulted. Dr. Bryson plan for pacemaker placement, the patient needed to be off of Xarelto for a few days. In the meantime, patient developed delirium. He was confused and hallucinating. was brought in to help orientated. Patient did not have any pain and no constipation. UA was negative and there is no signs of infection. CT head was negative for acute abnormality. He would be up most of the night and be agitated. His hospital delirium was thought to be secondary to hospitalization, insomnia, and his Parkinson's medication. His Parkinson's medication was held and he was put on quetiapine. He is able to get good rest before his pacemaker placement on October 21. He tolerated procedure well. The following day his mental status was stronger. Mildly confused, but not agitated or wandering. After EKG and chest x- ray cardiology was okay for patient to go home. Recommended restarting Xarelto tomorrow and leaving bandages on until he sees cardiology. Patient was subsequently discharged DISCHARGE MEDICATIONS: Please see below. ALLERGIES: Please see below. PHYSICAL EXAMINATION ON DISCHARGE: VITAL SIGNS: Please see below. GENERAL: Comfortable, in no apparent distress. HEENT: Head normocephalic/atraumatic, EOMI, sclera clear. NECK: Supple RESPIRATORY: Lungs clear to auscultation bilaterally, no rales, wheeze or rhonchi. CARDIOVASCULAR: Regular rate and rhythm. ABDOMEN: Soft, nontender, no guarding or rebound tenderness. Normal bowel sounds. MUSCLE SKELETAL: Left arm in sling NEUROLOGICAL: No focal deficits noted. PSYCHOLOGICAL: Pleasant, mildly confused. He knows that he is in the hospital, but not which hospital. He knows the year LABORATORY DATA: Please see below. IMAGING: CT head Age related atrophy and microvascular ischemic changes. No acute intracranial hemorrhage, infarction, or mass/mass effect. CT neck Osteopenia and advanced multilevel degenerative spondylosis. No acute fracture/compression injury or subluxation. PROGNOSIS: Stable ACTIVITY: As tolerated. DIET: 2 g sodium DISCHARGE PLAN: Home DISPOSITION: 01 Home, Self-Care. DISCHARGE INSTRUCTIONS: 1. Follow-up with her PCP within 5 days 2. Follow with Dr. Bryson on October 29 at 2 PM 3. Follow-up with Dr. Wilson on November 01 at 10:30 AM 4. Do not take Xarelto today, start taking Xarelto on 10/23/2020. 5. Leave bandage until you see cardiology DISCHARGE CONDITION: Stable. Total time spent on discharge planning, discharge summary, medication reconciliation: 45 minutes Vital Signs/I&Os Vital Signs Date Time Temp Pulse Resp B/P (MAP) Pulse Ox O2 Delivery O2 Flow Rate FiO2 10/22/20 11:55 97.4 68 15 164/72 (102) 98 Room Air I&O- Last 24 Hours up to 6 AM 10/22/20 06:00 Intake Total 600 ml Output Total 0 ml Balance 600 ml Laboratory Data Labs 24H Laboratory Tests 2 10/22/20 05:02: Immature Granulocyte % (Auto) 0.3, Neutrophils (%) (Auto) 71.1H, Lymphocytes (%) (Auto) 19.0L, Monocytes (%) (Auto) 7.7H, Eosinophils (%) (Auto) 1.6, Basophils (%) (Auto) 0.3, Neutrophils # (Auto) 4.4, Lymphocytes # (Auto) 1.2L, Monocytes # (Auto) 0.5, Eosinophils # (Auto) 0.1, Basophils # (Auto) 0.0, Nucleated Red Blood Cells % (auto) 0.0, Anion Gap 8, Glomerular Filtration Rate > 60.0, Calcium Level 8.8 CBC/BMP Laboratory Tests 10/22/20 05:02 Discharge Medications Scheduled Benazepril HCl (Benazepril HCl) 40 Mg Tablet, 40 MG PO DAILY, (Reported) Carbidopa/Levodopa (Carbidopa-Levodopa 25-100 Tab) 1 Each Tablet, 1 TAB PO TID, (Reported) Cholecalciferol (Vitamin D3) (Vitamin D3) 1,000 Unit Tablet, 2,000 UNITS PO DAILY, (Reported) Dutasteride (Avodart) 0.5 Mg Capsule, 0.5 MG PO DAILY, (Reported) Furosemide (Furosemide) 20 Mg Tablet, 40 MG PO DAILY, (Reported) Omeprazole (Omeprazole) 20 Mg Capsule.dr, 20 MG PO BID, (Reported) Potassium Chloride (Potassium Chloride) 8 Meq Capsule.er, 8 MEQ PO DAILY, (Reported) Pravastatin Sodium (Pravastatin Sodium) 40 Mg Tablet, 40 MG PO QHS, (Reported) Rivaroxaban (Xarelto) 20 Mg Tablet, 20 MG PO DAILY, (Reported) with food Ropinirole HCl (Ropinirole HCl) 0.5 Mg Tablet, 0.5 MG PO TID, (Reported) Spironolactone (Spironolactone) 25 Mg Tablet, 12.5 MG PO DAILY, (Reported) Allergies Coded Allergies: naproxen (Verified Allergy, Unknown, 01/12/20) strawberry (Verified Allergy, Unknown, 02/26/19) MARIANA JONES DO Oct 22, 2020 20:35
[2020-10-23] MEDS ORDERED: RIVAROXABAN 20 MG TAB (XARELTO) PO SCH (08:00)
== END 2020-10-22 15:54 | disposition home health service (06) | DRG 243 ==
LOC: EDBD 12:59 → M ED 12:59 → M ED INP 16:20 → ENRESERV 18:05 → M PCU 20:09
PROVIDERS: ADMIT General Practice; ATTEND Internal Medicine
PROC: 02HK3JZ Insertion of Pacemaker Lead into Right Ventricle, Percutaneous Approach (ICD-10-PCS; 2020-10-21)
PROC: 0JH605Z Insertion of Pacemaker, Single Chamber Rate Responsive into Chest Subcutaneous Tissue and Fascia, Open Approach (ICD-10-PCS; principal; 2020-10-21 14:30)
DX: I44.2 Atrioventricular block, complete (principal); I50.32 Chronic diastolic (congestive) heart failure; F03.91 Unspecified dementia, unspecified severity, with behavioral disturbance; E87.1 Hypo-osmolality and hyponatremia; I48.21 Permanent atrial fibrillation; I11.0 Hypertensive heart disease with heart failure; I95.1 Orthostatic hypotension; E78.5 Hyperlipidemia, unspecified; R41.0 Disorientation, unspecified; G20 Parkinson's disease; Z85.46 Personal history of malignant neoplasm of prostate; Z79.01 Long term (current) use of anticoagulants; Z79.899 Other long term (current) drug therapy; Z88.6 Allergy status to analgesic agent; Z91.018 Allergy to other foods; Z86.73 Personal history of transient ischemic attack (TIA), and cerebral infarction without residual deficits; Z20.828 Contact with and (suspected) exposure to other viral communicable diseases

== ENCOUNTER → 2020-12-01 | Outpatient (CLI) | payer MEDICARE ==
[~2020-12-01] MED LIST changes: +D31000TA2 PO; +OMEP-218 PO; +POTA8CAP10 PO
== END ==
LOC: M LABSMTC 11:12
PROVIDERS: ATTEND Anesthesiology
DX: Z01.812 Encounter for preprocedural laboratory examination (principal); Z20.822 Contact with and (suspected) exposure to COVID-19

== ENCOUNTER 2020-12-06 07:57 | Day surgery (SDC) | payer MEDICARE ==
[~2020-12-06] VITALS: Ht 175.3 cm; Wt 75.7 kg
[~2020-12-06 07:57] MED LIST changes: +NS 1,000 ML IV ONE
--- OUTSIDE RECORDS SUMMARY | 2020-12-06 08:02 | CCD | Continuity of Care Document ---
Author Author Jerson LOUIE M.D. Organization Unknown Address [address] [place] [id number] Phone [phone] Care Team Providers Care Automotive Tire Technician Name Role Phone Catina Harris M.D. AUTM [phone] Problems Active Problems Provider Date Hemorrhage of rectum and anus Placido Louie M.D. Onset : 11/23/2020 Social History Type Date Description Comments Sex Unknown ETOH Use Drinks 2 Alcoholic Beverages Per Day Tobacco Use Start: Unknown Patient has never smoked Allergies, Adverse Reactions, Alerts Description No Known Drug Allergies Medications Active Medications SIG Qnty Indications Ordering Provide r Date Sutab [id number] Tablets use as directed 1box Placido Louie M.D. 021 Benazepril HCL 40mg Tablets Catina Harris M.D. Potassium Chloride ER 8Meq Tablets ER Catina Harris M.D. Pravastatin Sodium 40mg Tablets Catina Harris M.D. Dutasteride 0.5mg Capsules Catina Harris M.D. Carbidopa-Levodopa 25-100mg Tablets Catina Harris M.D. Omeprazole 20mg Capsules DR Take One Capsule By Mouth Twice A Day Unknown Xarelto 20mg Tablets Take One Tablet By Mouth Every Day Unknown Furosemide 20mg Tablets Take Two Tablets By Mouth Every Day Unknown Spironolactone 25mg Tablets Take One Half Tablet By Mouth Every Day Unknown Ropinirole HCL 0.5mg Tablets Take One Tablet By Mouth Three Times A Day Unknown Immunizations Description No Information Available Vital Signs Date Vital Result Comment 11/23/2020 2:35pm Height 69 inches 5'9" Weight 167.00 lb BP Systolic 124 mmHg BP Diastolic 67 mmHg Heart Rate 69 /min BMI (Body Mass Index) 24.7 kg/m2 Weight 75.751 kg Body Temperature 97.5 F Results Description No Information Available Procedures Description No Information Available Medical Devices Description No Information Available Encounters Description No Information Available Assessments Date Code Description Provider 11/23/2020 D64.9 Anemia, unspecified Placido dover M.D. 11/23/2020 K58.9 Irritable bowel syndrome without diarrhea Placido Louie M.D. Plan of Treatment Future Appointment(s):* 12/06/2020 11:00 am - Placido Louie M.D. at Main Office 11/23/2020 - Placido Louie M.D.* D64.9 Anemia, unspecified* Comments:* 80 yo wm who presents for a h/o anemia, and a change in bowel habits. No c/o a bdominal pain, weight loss, positive change in bowel habits, no rectal bleeding. No family h/o colon cancer. No h/o chest pain, or sob. Plan:1. Colonoscopy + egd.2. Informed consent. * K58.9 Irritable bowel syndrome without diarrhea* Comments:* As above. Functional Status Description No Information Available Mental Status Description No Information Available Referrals Description No Information Available
--- OUTSIDE RECORDS SUMMARY | 2020-12-06 08:02 | CCD | Continuity of Care Document ---
Author Author Jerson BROCK DPM Organization Unknown Address [address] [place] [address], [facility] [address] [place] [address] Phone [phone] Care Team Providers Care Manager Medical Name Role Phone Kimberly White Rudyti AUTM [phone] Problems Active Problems Provider Date Pronation Kanu Brock DPM Onset: 11/25/2019 Abnormal gait Kanu Brock DPM Onset: 11/25/2019 Onychomycosis Kanu Brock DPM Onset: 08/09/2020 Social History Type Date Description Comments Sex Unknown ETOH Use Currently consumes alcohol 3-4 b eers per day Tobacco Use Start: Unknown Patient has never smoked Allergies, Adverse Reactions, Alerts Active Allergies Reaction Severity Comments Date Naproxen face and tongue swelling 05/2020 Medications Active Medications SIG Qnty Indications Ordering Provide r Date Spironolactone 25mg Tablets Take One-Half Tablet By Mouth Once Daily Unknown Xarelto 20mg Tablets Take One Tablet By Mouth Once Daily Unknown Pravastatin Sodium 40mg Tablets Take One Tablet By Mouth Once Daily Unknown Potassium Chloride ER 8Meq Tablets ER Take One Tablet By Mouth Once Daily Unknown 0 Furosemide 20mg Tablets Take One Tablet By Mouth Once Daily Unknown Dutasteride 0.5mg Capsules Take One Capsule By Mouth Once Daily Unknown Benazepril HCL 40mg Tablets Take One Tablet By Mouth Once Daily Unknown Multivitamins Unknown Vitamin D Unknown Immunizations Description No Information Available Vital Signs Date Vital Result Comment 11/25/2019 8:19am Height 69 inches 5'9" Weight 180.00 lb BP Systolic 140 mmHg BP Diastolic 70 mmHg Heart Rate 49 /min BMI (Body Mass Index) 26.6 kg/m2 Results Description No Information Available Procedures Description No Information Available Medical Devices Description No Information Available Encounters Type Date Location Provider Dx Diagnosis Office Visit 09/30/2020 11:15a [place] [facility] Kanu Brock DPM B35.1 Tinea unguium Office Visit 07/22/2020 11:15a [place] [facility] Kanu Brock DPM B35.1 Tinea unguium Office Visit 05/20/2020 11:15a [place] [facility] Kanu Brock DPM M21.6x9 Other acquired deformities of unspecified foot B35.1 Tinea unguium Assessments Date Code Description Provider 09/30/2020 B35.1 Tinea unguium Kanu Brock DPM 07/22/2020 B35.1 Tinea unguium Kanu Brock DPM 05/20/2020 M21.6x9 Other acquired deformities of un specified foot Kanu Brock DPM 05/20/2020 B35.1 Tinea unguium Kanu Brock DPM Plan of Treatment Future Appointment(s):* 12/07/2020 11:15 am - Kanu Brock DPM at [facility] Functional Status Description No Information Available Mental Status Description No Information Available Referrals Description No Information Available
--- OUTSIDE RECORDS SUMMARY | 2020-12-06 08:02 | CCD | Continuity of Care Document ---
Author Author Jerson BROCK DPM Organization Unknown Address [address] [place] [address], [facility] [[email or web address]] [address] [place] [address] Phone [phone] Care Team Providers Care Filter Tender Name Role Phone Kimberly White Rudyti AUTM [phone] Problems Active Problems Provider Date Pronation Kanu Brokc DPM Onset: 11/25/2019 Abnormal gait Kanu Brock [...] Date Location Provider Dx Diagnosis Office Visit 07/22/2020 11:15a [place] [facility] Kanu Brock DPM B35.1 Tinea unguium Office Visit 05/20/2020 11:15a [place] [facility] Kanu Brock DPM M21.6x9 Other acquired deformities of unspecified foot B35.1 Tinea unguium Assessments Date Code Description Provider 07/22/2020 B35.1 Tinea unguium Kanu Brock DPM 05/20/2020 M21.6x9 Other acquired deformities of un specified foot Kanu Brock DPM 05/20/2020 B35.1 Tinea unguium Kanu Brock DPM Plan of Treatment Future Appointment(s):* 12/07/2020 11:15 am - Kanu Brock DPM at [facility] Functional Status Description No Information Available Mental Status Description No Information Available Referrals Description No Information Available
--- OUTSIDE RECORDS SUMMARY | 2020-12-06 08:02 | CCD ---
Continuity of Care Document (CCD) Created on: 11/29/2020 Jerson Seymour External Reference #: [id number] : [id number] Sex: Male Author Author Jerson LOUIE M.D. Organization Unknown Address [address] [place] [address] Phone [phone] Care Team Providers Care Time Study Clerk Name Role Phone Catina Harris M.D. AUTM [phone] Problems Active Problems Provider Date Hemorrhage of rectum and anus Placido Louie M.D. Onset : 11/23/2020 Social History Type Date Description Comments Sex Unknown ETOH Use Drinks 2 Alcoholic Beverages Per Day Tobacco Use Start: Unknown Patient has never smoked Allergies, Adverse Reactions, Alerts Description No Known Drug Allergies Medications Active Medications SIG Qnty Indications Ordering Provide r Date [place] [id number] Tablets use as directed 1box Placido Louie [...] Date Location Provider Dx Diagnosis Office Visit 11/23/2020 2:00p Main Office Placido Louie M.D. D 64.9 Anemia, unspecified K58.9 Irritable bowel syndrome wit hout diarrhea Assessments Date Code Description Provider 11/23/2020 D64.9 [...]
--- OUTSIDE RECORDS SUMMARY | 2020-12-06 08:02 | CCD | Continuity of Care Document ---
Author Author Jerson JARAMILLO PA Organization Unknown Address [address] [place] [address], [facility] [place] [address] Phone [phone] Care Team Providers Care Armed Guard Name Role Phone Lorene Flores MD AUTM [phone] Helena Harris MD AUTM [phone] Problems Description No Information Available Social History Type Date Description Comments Sex Unknown Allergies, Adverse Reactions, Alerts Description No Information Available Medications Description No Information Available Immunizations Description No Information Available Vital Signs Description No Information Available Results Description No Information Available Procedures Description No Information Available Medical Devices Description No Information Available Encounters Type Date Location Provider Dx Diagnosis Office Visit 10/29/2020 2:00p Main Office MARIUM Mcgee Z95 .0 Presence of cardiac pacemaker Assessments Date Code Description Provider 10/29/2020 Z95.0 Presence of cardiac pacemaker Ca MARIUM Jimenes Plan of Treatment 10/29/2020 - MARIUM Mcgee* Z95.0 Presence of cardiac pacemaker* Recommendations:* Recommendations: 1. You may shower tomorrow. 2. Do not soak in a bath tub or hot tub for another week. 3. Continue to limit the use of your left arm for another week - no lifting your shoulder above 90 degrees and no lifting, pulling or pushing more than 10 lbs. * All * Follow up:* Follow-up with Dr. Wilson Functional Status Description No Information Available Mental Status Description No Information Available Referrals Description No Information Available
--- OUTSIDE RECORDS SUMMARY | 2020-12-06 08:03 | CCD ---
Author Author [facility] Organization [facility] Address Unknown Phone Unavailable Care Team Providers Care Master Police Detective Name Role Phone Aury Louie MD Unavailable Unavailable Aury Louie MD Unavailable Unavailable Aury Louie MD Unavailable Unavailable Aury Louie MD Unavailable Unavailable Aury Louie MD Unavailable Unavailable Aury Louie MD Unavailable Unavailable Aury Louie MD Unavailable Unavailable Aury Louie MD Unavailable Unavailable Aury Louie MD Unavailable Unavailable Aury Louie MD Unavailable Unavailable Aury Louie MD Unavailable Unavailable Aury Louie MD Unavailable Unavailable Aury Louie MD Unavailable Unavailable Aury Louie MD Unavailable Unavailable Aury Louie MD Unavailable Unavailable Aury Louie MD Unavailable Unavailable Aury Louie MD Unavailable Unavailable Aury Louie MD Unavailable Unavailable Aury Louie MD Unavailable Unavailable Aury Louie MD Unavailable Unavailable Aury Louie MD Unavailable Unavailable Aury Louie MD Unavailable Unavailable Aury Louie MD Unavailable Unavailable Aury Louie MD Unavailable Unavailable Aury Louie MD Unavailable Unavailable Aury Louie MD Unavailable Unavailable Aury Louie MD Unavailable Unavailable Aury Louie MD Unavailable Unavailable Aury Louie MD Unavailable Unavailable Aury Louie MD Unavailable Unavailable Aury Louie MD Unavailable Unavailable Aury Louie MD Unavailable Unavailable Aury Louie MD Unavailable Unavailable Aury Louie MD Unavailable Unavailable Aury Louie MD Unavailable Unavailable Aury Louie MD Unavailable Unavailable Aury Louie MD Unavailable Unavailable Aury Louie MD Unavailable Unavailable Aury Louie MD Unavailable Unavailable Aury Louie MD Unavailable Unavailable Aury Louie MD Unavailable Unavailable Aury Louie MD Unavailable Unavailable Aury Louie MD Unavailable Unavailable Aury Louie MD Unavailable Unavailable Aury Louie MD Unavailable Unavailable JacyAury barth MD Unavailable Unavailable JacyAury MD Unavailable Unavailable Fons, M Alda TOOL CHASER Unavailable Unavailable Fons, M Alda TOOL CHASER Unavailable Unavailable Fons, M Alda TOOL CHASER Unavailable Unavailable Fons, M Alda TOOL CHASER Unavailable Unavailable Fons, M Alda TOOL CHASER Unavailable Unavailable Fons, M Alda TOOL CHASER Unavailable Unavailable Fons, M Alda TOOL CHASER Unavailable Unavailable Fons, M Alda TOOL CHASER Unavailable Unavailable Fons, M Alda TOOL CHASER Unavailable Unavailable Fons, M Alda TOOL CHASER Unavailable Unavailable Fons, M Alda TOOL CHASER Unavailable Unavailable Fons, M Alda TOOL CHASER Unavailable Unavailable Fons, M Alda TOOL CHASER Unavailable Unavailable Fons, M Alda TOOL CHASER Unavailable Unavailable Fons, M Alda TOOL CHASER Unavailable Unavailable Fons, M Alda TOOL CHASER Unavailable Unavailable Fons, M Alda TOOL CHASER Unavailable Unavailable Fons, M Alda TOOL CHASER Unavailable Unavailable Fons, M Alda TOOL CHASER Unavailable Unavailable Fons, M Alda TOOL CHASER Unavailable Unavailable Fons, M Alda TOOL CHASER Unavailable Unavailable Fons, M Alda TOOL CHASER Unavailable Unavailable Fons, M Alda TOOL CHASER Unavailable Unavailable Fons, M Alda TOOL CHASER Unavailable Unavailable Fons, M Alda TOOL CHASER Unavailable Unavailable Fons, M Alda TOOL CHASER Unavailable Unavailable Fons, M Alda TOOL CHASER Unavailable Unavailable Fons, M Alda TOOL CHASER Unavailable Unavailable Fons, M Alda TOOL CHASER Unavailable Unavailable Fons, M Alda TOOL CHASER Unavailable Unavailable Fons, M Alda TOOL CHASER Unavailable Unavailable Fons, M Alda TOOL CHASER Unavailable Unavailable Fons, M Alda TOOL CHASER Unavailable Unavailable Fons, M Alda TOOL CHASER Unavailable Unavailable Fons, M Alda TOOL CHASER Unavailable Unavailable Fons, M Alda TOOL CHASER Unavailable Unavailable Fons, M Alda TOOL CHASER Unavailable Unavailable Fons, M Alda TOOL CHASER Unavailable Unavailable Fons, M Alda TOOL CHASER Unavailable Unavailable Fons, M Alda TOOL CHASER Unavailable Unavailable Fons, M Alda TOOL CHASER Unavailable Unavailable Fons, M Alda TOOL CHASER Unavailable Unavailable Fons, M Alda TOOL CHASER Unavailable Unavailable Fons, M Alda TOOL CHASER Unavailable Unavailable Fons, M Alda TOOL CHASER Unavailable Unavailable Fons, M Alda TOOL CHASER Unavailable Unavailable Fons, M Alda TOOL CHASER Unavailable Unavailable Fons, M Alda TOOL CHASER Unavailable Unavailable Fons, M Alda TOOL CHASER Unavailable Unavailable Fons, M Alda TOOL CHASER Unavailable Unavailable Fons, M Alda TOOL CHASER Unavailable Unavailable Fons, M Alda TOOL CHASER Unavailable Unavailable Fons, M Alda TOOL CHASER Unavailable Unavailable Fons, M Alda TOOL CHASER Unavailable Unavailable Cherelle AGUIRRE MD Unavailable Unavailable BARJANUGACherelle MD Unavailable Unavailable BARAYUGACherelle MD Unavailable Unavailable BARCherelle DENTON MD Unavailable Unavailable Cherelle AGUIRRE MD Unavailable Unavailable SAMANUGACherelle MD Unavailable Unavailable SAMANUGACherelle MD Unavailable Unavailable SAMANUGACherelle MD Unavailable Unavailable Cherelle AGUIRRE MD Unavailable Unavailable Cherelle AGUIRRE MD Unavailable Unavailable Cherelle AGUIRRE MD Unavailable Unavailable Cherelle AGUIRRE MD Unavailable Unavailable BARCherelle DENTON MD Unavailable Unavailable SAMANUGACherelle MD Unavailable Unavailable BARCherelle DENTON MD Unavailable Unavailable Cherelle AGUIRRE MD Unavailable Unavailable Cherelle AGUIRRE MD Unavailable Unavailable BARCherelle DENTON MD Unavailable Unavailable Cherelle AGUIRRE MD Unavailable Unavailable Cherelle AGUIRRE MD Unavailable Unavailable Cherelle AGUIRRE MD Unavailable Unavailable NADEEMAYCherelle GREGORY MD Unavailable Unavailable Cherelle AGUIRRE MD Unavailable Unavailable Cherelle AGUIRRE MD Unavailable Unavailable Cherelle AGUIRRE MD Unavailable Unavailable Cherelle AGUIRRE MD Unavailable Unavailable Cherelle AGUIRRE MD Unavailable Unavailable Cherelle AGUIRRE MD Unavailable Unavailable Cherelle AGUIRRE MD Unavailable Unavailable Cherelle AGUIRRE MD Unavailable Unavailable BARCherelle DENTON MD Unavailable Unavailable SAMANUGACherelle MD Unavailable Unavailable BARAYUGACherelle MD Unavailable Unavailable RUBINA, MARIAMA MD Unavailable Unavailable RUBINA, MARIAMA MD Unavailable Unavailable RUBINA, MARIAMA MD Unavailable Unavailable RUBINA, MARIAMA MD Unavailable Unavailable RUBINA, MARIAMA MD Unavailable Unavailable RUBINA, MARIAMA MD Unavailable Unavailable RUBINA, MARIAMA MD Unavailable Unavailable RUBINA, MARIAMA MD Unavailable Unavailable RUBINA, MARIAMA MD Unavailable Unavailable RUBINA, MARIAMA MD Unavailable Unavailable RUBINA, MARIAMA MD Unavailable Unavailable RUBINA, MARIAMA MD Unavailable Unavailable RUBINA, MARIAMA MD Unavailable Unavailable RUBINA, MARIAMA MD Unavailable Unavailable RUBINA, MARIAMA MD Unavailable Unavailable RUBINA, MARIAMA MD Unavailable Unavailable RUBINA, MARIAMA MD Unavailable Unavailable RUBINA, MARIAMA MD Unavailable Unavailable RUBINA, MARIAMA MD Unavailable Unavailable RUBINA, MARIAMA MD Unavailable Unavailable RUBINA, MARIAMA MD Unavailable Unavailable RUBINA, MARIAMA MD Unavailable Unavailable RUBINA, MARIAMA MD Unavailable Unavailable RUBINA, MARIAMA MD Unavailable Unavailable RUBINA, MARIAMA MD Unavailable Unavailable RUBINA, MARIAMA MD Unavailable Unavailable RUBINA, MARIAMA MD Unavailable Unavailable RUBINA, MARIAMA MD Unavailable Unavailable RUBINA, MARIAMA MD Unavailable Unavailable RUBINA, MARIAMA MD Unavailable Unavailable RUBINA, MARIAMA MD Unavailable Unavailable RUBINA, MARIAMA MD Unavailable Unavailable RUBINA, MARIAMA MD Unavailable Unavailable RUBINA, MARIAMA MD Unavailable Unavailable RUBINA, MARIAMA MD Unavailable Unavailable RUBINA, MARIAMA MD Unavailable Unavailable RUBINA, MARIAMA MD Unavailable Unavailable RUBINA, MARIAMA MD Unavailable Unavailable RUBINA, MARIAMA MD Unavailable Unavailable RUBINA, MARIAMA MD Unavailable Unavailable Rosa RAND DPM Unavailable Unavailable Rosa RAND DPM Unavailable Unavailable Rosa RAND DPM Unavailable Unavailable Rosa RAND DPM Unavailable Unavailable Rosa RANDW DPM Unavailable Unavailable GIORGI R ALISON DPM Unavailable Unavailable GIORGI R ALISON DPM Unavailable Unavailable Rosa RAND DPM Unavailable Unavailable Rosa RAND DPM Unavailable Unavailable Rosa RAND DPM Unavailable Unavailable MAJGALO R ALISON DPM Unavailable Unavailable GIORGI R ALISON DPM Unavailable Unavailable Rosa RANDW DPM Unavailable Unavailable GIORGI R ALISON DPM Unavailable Unavailable Rosa RAND DPM Unavailable Unavailable GIORGI R ALISON DPM Unavailable Unavailable MAJAK, R ALISON DPM Unavailable Unavailable MAJAK, R ALISON DPM Unavailable Unavailable MAJAK, R ALISON DPM Unavailable Unavailable MAJAK, R ALISON DPM Unavailable Unavailable MAJAK, R ALISON DPM Unavailable Unavailable MAJAK, R ALISON DPM Unavailable Unavailable MAJAK, R ALISON DPM Unavailable Unavailable MAJAK, R ALISON DPM Unavailable Unavailable MAJAK, R ALISON DPM Unavailable Unavailable MAJAK, R ALISON DPM Unavailable Unavailable MAJAK, R ALISON DPM Unavailable Unavailable MAJAK, R ALISON DPM Unavailable Unavailable MAJAK, R ALISON DPM Unavailable Unavailable MAJAK, R ALISON DPM Unavailable Unavailable CLINT, L GIDEON PA Unavailable Unavailable CLINT, L GIDEON PA Unavailable Unavailable CLINT, L GIDEON PA Unavailable Unavailable CLINT, L GIDEON PA Unavailable Unavailable Lee, L Maida PA Unavailable Unavailable Lee, L Maida PA Unavailable Unavailable Lee, L Maida PA Unavailable Unavailable Lee, L Maida PA Unavailable Unavailable Lee, L Maida PA Unavailable Unavailable Lee, L Maida PA Unavailable Unavailable Lee, L Maida PA Unavailable Unavailable Lee, L Maida PA Unavailable Unavailable Lee, L Maida PA Unavailable Unavailable Lee, L Maida PA Unavailable Unavailable Lee, L Maida PA Unavailable Unavailable Lee, L Maida PA Unavailable Unavailable Lee, L Maida PA Unavailable Unavailable Lee, L Maida PA Unavailable Unavailable Lee, L Maida PA Unavailable Unavailable Lee, L Maida PA Unavailable Unavailable Lee, L Maida PA Unavailable Unavailable Lee, L Maida PA Unavailable Unavailable Lee, L Maida PA Unavailable Unavailable Lee, L Maida PA Unavailable Unavailable Lee, L Maida PA Unavailable Unavailable Lee, L Maida PA Unavailable Unavailable Lee, L Maida PA Unavailable Unavailable Lee, L Maida PA Unavailable Unavailable Lee, L Maida PA Unavailable Unavailable Lee, L Maida PA Unavailable Unavailable Lee, L Maida PA Unavailable Unavailable Lee, L Maida PA Unavailable Unavailable Lee, L Maida PA Unavailable Unavailable Lee, L Maida PA Unavailable Unavailable Lee, L Maida PA Unavailable Unavailable Lee, L Maida PA Unavailable Unavailable Lee, L Maida PA Unavailable Unavailable Lee, L Maida PA Unavailable Unavailable Lee, L Maida PA Unavailable Unavailable Lee, L Maida PA Unavailable Unavailable Zayra Sweeney MPAS, PA-C Unavailable Unavailabl e Fish, [facility], PA-C Unavailable Unavailabl e Fish, [facility], PA-C Unavailable Unavailabl e Fish, [facility], PA-C Unavailable Unavailabl e Fish, [facility], PA-C Unavailable Unavailabl e Fish, [facility], PA-C Unavailable Unavailabl e Fish, [facility], PA-C Unavailable Unavailabl e Fish, [facility], PA-C Unavailable Unavailabl e Fish, [facility], PA-C Unavailable Unavailabl e Fish, [facility], PA-C Unavailable Unavailabl e Fish, [facility], PA-C Unavailable Unavailabl e Fish, [facility], PA-C Unavailable Unavailabl e Fish, [facility], PA-C Unavailable Unavailabl e Fish, [facility], PA-C Unavailable Unavailabl e Fish, [facility], PA-C Unavailable Unavailabl e Fish, [facility], PA-C Unavailable Unavailabl e Fish, [facility], PA-C Unavailable Unavailabl e Fish, [facility], PA-C Unavailable Unavailabl e Fish, [facility], PA-C Unavailable Unavailabl e Fish, [facility], PA-C Unavailable Unavailabl e Fish, [facility], PA-C Unavailable Unavailabl e Fish, [facility], PA-C Unavailable Unavailabl e Fish, [facility], PA-C Unavailable Unavailabl e Fish, [facility], PA-C Unavailable Unavailabl e Fish, [facility], PA-C Unavailable Unavailabl e Fish, [facility], PA-C Unavailable Unavailabl e Fish, [facility], PA-C Unavailable Unavailabl e Fish, [facility], PA-C Unavailable Unavailabl e Fish, [facility], PA-C Unavailable Unavailabl e Fish, [facility], PA-C Unavailable Unavailabl e Fish, [facility], PA-C Unavailable Unavailabl e Fish, Zayra Lupe MPAS, PA-C Unavailable Unavailabl e Zayra Sweeney MPAS, PA-C Unavailable Unavailabl e Kellogg, N Serafin [employer]ER [employer] T[employer]ER Unavailable Unavailable Kellogg, N Serafin B[employer]ER [employer] T[employer]ER Unavailable Unavailable Rosario, N Serafin B[employer]ER [employer] TACKER Unavailable Unavailable Kellogg, N Serafin B[employer]ER [employer] T[employer]ER Unavailable Unavailable Rosario, N Serafin B[employer]ER [employer] T[employer]ER Unavailable Unavailable Rosario, N Serafin B[employer]ER [employer] T[employer]ER Unavailable Unavailable Kellogg, N Serafin B[employer]ER [employer] T[employer]ER Unavailable Unavailable Kellogg, N Serafin B[employer]ER [employer] T[employer]ER Unavailable Unavailable Rosario, N Serafin B[employer]ER AND TACKER Unavailable Unavailable Kellogg, N Serafin B[employer]ER [employer] TACKER Unavailable Unavailable Rosario, N Serafin B[employer]ER [employer] TACKER Unavailable Unavailable Kellogg, N Serafin B[employer]ER [employer] TACKER Unavailable Unavailable Kellogg, N Serafin BARRER AND TACKER Unavailable Unavailable Kellogg, N Serafin BARRER [employer] TACKER Unavailable Unavailable Rosario, N Serafin B[employer]ER [employer] TACKER Unavailable Unavailable Rosario, N Serafin BARRER AND TACKER Unavailable Unavailable Rosario, N Serafin BARRER AND TACKER Unavailable Unavailable Kellogg, N Serafin B[employer]ER AND TACKER Unavailable Unavailable Kellogg, N Serafin BARRER AND TACKER Unavailable Unavailable Kellogg, N Serafin BARRER [employer] TACKER Unavailable Unavailable Rosario, N Serafin BARRER [employer] TACKER Unavailable Unavailable Rosario, N Serafin BARRER AND TACKER Unavailable Unavailable Rosario, N Serafin BARRER AND TACKER Unavailable Unavailable Rosario, N Serafin BARRER AND TACKER Unavailable Unavailable Rosario, N Serafin BARRER AND TACKER Unavailable Unavailable Rosario, N Serafin BARRER AND TACKER Unavailable Unavailable Rosario, N Serafin BARRER AND TACKER Unavailable Unavailable Rosario, N Serafin BARRER AND TACKER Unavailable Unavailable Kellogg, N Serafin BARRER AND TACKER Unavailable Unavailable Rosario, N Serafin BARRER AND TACKER Unavailable Unavailable Gisela Harris MD Unavailable Unavailable Gisela Harris MD Unavailable Unavailable Gisela Harris MD Unavailable Unavailable Gisela Harris MD Unavailable Unavailable Gisela Harris MD Unavailable Unavailable Gisela Harris MD Unavailable Unavailable Gisela Harris MD Unavailable Unavailable Gisela Harris MD Unavailable Unavailable Gisela Harris MD Unavailable Unavailable Gisela Harris MD Unavailable Unavailable Gisela Harris MD Unavailable Unavailable Gisela Harris MD Unavailable Unavailable Gisela Harris MD Unavailable Unavailable Gisela Harris MD Unavailable Unavailable Gisela Harris MD Unavailable Unavailable Gisela Harris MD Unavailable Unavailable Gisela Harris MD Unavailable Unavailable Gisela Harris MD Unavailable Unavailable Gisela Harris MD Unavailable Unavailable Gisela Harris MD Unavailable Unavailable Gisela Harris MD Unavailable Unavailable Gisela Harris MD Unavailable Unavailable Gisela Harris MD Unavailable Unavailable Gisela Harris MD Unavailable Unavailable Gisela Harris MD Unavailable Unavailable Gisela Harris MD Unavailable Unavailable Gisela Harris MD Unavailable Unavailable Gisela Harris MD Unavailable Unavailable Gisela Harris MD Unavailable Unavailable Gisela Harris MD Unavailable Unavailable Gisela Harris MD Unavailable Unavailable Gisela Harris MD Unavailable Unavailable Gisela Harris MD Unavailable Unavailable Gisela Harris MD Unavailable Unavailable Gisela Harris MD Unavailable Unavailable Gisela Harris MD Unavailable Unavailable Gisela Harris MD Unavailable Unavailable Gisela Harris MD Unavailable Unavailable Gisela Harris MD Unavailable Unavailable Gisela Harris MD Unavailable Unavailable Gisela Harris MD Unavailable Unavailable Gisela Harris MD Unavailable Unavailable Gisela Harris MD Unavailable Unavailable Gisela Harris MD Unavailable Unavailable Gisela Harris MD Unavailable Unavailable Gisela Harris MD Unavailable Unavailable Gisela Harris MD Unavailable Unavailable Gisela Harris MD Unavailable Unavailable Gisela Harris MD Unavailable Unavailable Gisela Harris MD Unavailable Unavailable Gisela Harris MD Unavailable Unavailable Gisela Harris MD Unavailable Unavailable Gisela Harris MD Unavailable Unavailable Gisela Harris MD Unavailable Unavailable Gisela Harris MD Unavailable Unavailable Gisela Harris MD Unavailable Unavailable Gisela Harris MD Unavailable Unavailable Gisela Harris MD Unavailable Unavailable Gisela Harris MD Unavailable Unavailable Gisela Harris MD Unavailable Unavailable Gisela Harris MD Unavailable Unavailable Gisela Harris MD Unavailable Unavailable Gisela Harris MD Unavailable Unavailable Gisela Harris MD Unavailable Unavailable Cass LOUIE DO Unavailable [phone] Cass LOUIE DO Unavailable [phone] Cass LOUIE DO Unavailable [phone] Cass LOUIE DO Unavailable [phone] JACYJoselo. HUGH DO Unavailable [phone] JACY, Joselo. HUGH DO Unavailable [phone] JACY, Joselo. HUGH DO Unavailable [phone] JACY, Joselo. HUGH DO Unavailable [phone] JACY, A. HUGH DO Unavailable [phone] JACY, A. HUGH DO Unavailable [phone] JACY, A. HUGH DO Unavailable [phone] JCAY, A. HUGH DO Unavailable [phone] JACY, Joselo. HUGH DO Unavailable [phone] JACY, Joselo. HUGH DO Unavailable [phone] JACY, Joselo. HUGH DO Unavailable [phone] JACY, Joselo. HUGH DO Unavailable [phone] JACY, Joselo. HUGH DO Unavailable [phone] JACY, Joselo. HUGH DO Unavailable [phone] JACY, Cass GUAMANEW DO Unavailable [phone] JACY, Joselo. HUGH DO Unavailable [phone] JACY, Cass REESE DO Unavailable [phone] Re-disclosure Warning The records that you are about to access may contain information from federally-assisted alcohol or drug abuse programs. If such information is present, then the following federally mandated warning applies: This information has been disclosed to you from records protected by federal confidentiality rules (42 CFR part 2). The federal rules prohibit you from making any further disclosure of this information unless further disclosure is expressly permitted by the written consent of the person to whom it pertains or as otherwise permitted by 42 CFR part 2. A general authorization for the release of medical or other information is NOT sufficient for this purpose. The Federal rules restrict any use of the information to criminally investigate or prosecute any alcohol or drug abuse patient.The records that you are about to access may contain highly sensitive health information, the redisclosure of which is protected by Article 27-F of the [facility] Public Health law. If you continue you may have access to information: Regarding HIV / AIDS; Provided by facilities licensed or operated by the [facility] Office of Mental Health; or Provided by the [facility] Office for People With Developmental Disabilities. If such information is present, then the following [facility] mandated warning applies: This information has been disclosed to you from confidential records which are protected by state law. State law prohibits you from making any further disclosure of this information without the specific written consent of the person to whom it pertains, or as otherwise permitted by law. Any unauthorized further disclosure in violation of state law may result in a fine or chcf sentence or both. A general authorization for the release of medical or other information is NOT sufficient authorization for further disc losure. Allergies and Adverse Reactions Type Description Substance Reaction Status Data Source(s ) Propensity to adverse reactions STRAWBERRY FLAVOR [place] Flavor Active [facility] Naproxen Naproxen Naproxen MOUTH SWELLED UP Active eCW1 ([facility]) Drug allergy Naprosyn Naproxen Active KIYA (Escobar Meyer MD [facility]) Family History Family Member Name Family Member Gender Family Member Status Date o f Status Description Data Source(s) Unknown Female Problem [facility] ([facility]) Encounters Encounter Providers Location Date Indications Data Source(s ) Outpatient JANIA-LINDA 11/26/2020 04:59:29 PM EST [facility] Outpatient [email or web address] 11/25/2020 12:00:00 AM EST [facility] Outpatient Attender: Placido Louie MD Main Office 11/23/2020 01:00:00 PM EST [facility] ([facility]) Outpatient Attender: Maida DYKES-ALY 12:00:00 AM EST - 11/17/2020 04:09:40 PM EST [facility] Outpatient Attender: GIDEON CAUSEY Main Office 10/29/2020 0 1:00:00 PM EST [facility] ([facility]) Outpatient Attender: ALISON RAND [facility] 09/19 10:15:00 AM EST [facility] ([facility] Outpatient Attender: MARIAMA CESPEDES MD [facility] office [facility] 09/27/2020 02:45:00 PM EST [facility] ([facility] ) Outpatient Referrer: Maida [email or web address] 12:00:00 AM EDT [facility] Outpatient Attender: Maida CROWALY-SJP.[place]Y 01:36:46 PM EDT - 08/18/2020 04:20:42 PM EDT [facility] Outpatient Referrer: Serafin CROWALY-[facility] 07/29/2020 12 :00:00 AM EDT [facility] Outpatient Attender: ALISON RAND [facility] 01/2020 11:15:00 AM EDT [facility] ([facility] [address] [place] [id number] 07/08/2020 12:00:00 AM EDT eCW1 ([facility]) Outpatient<td ID="encounterTypeDescripti onID0">8 Month Follow-Up</td><td>Hugh Louie DO</td><td>Jorge Loza MD [facility]</td><td>06/29/2020</td><td>2:18PM</td><td>3:16PM</td><td><content ID="encounterDiagnosisID0-0">Essential Hypertension</content>, <content ID="encounterDiagnosisID0-1">Cataract Senile Nuclear</content>, <content ID="encounterDiagnosisID0-2">Vitreous Disorders Degeneration</content>, <content ID="encounterDiagnosisID0-3">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) Outpatient Attender: ALISON RAND [facility] Office 12/2019 11:15:00 AM EDT [facility] ([facility] Outpatient Attender: Serafin Ponce NP [email or web address]-[email or web address] 020 08:55:21 AM EDT - 05/10/2020 09:28:46 AM EDT [facility] Outpatient Attender: MARIAMA CESPEDES MD Main office - [facility] 04/16/2020 10:00:00 AM EDT [facility] ([facility] Outpatient Attender: MARIAMA CESPEDES MD Main office - [facility] 03/29/2020 01:30:00 PM EDT [facility] ([facility]) Outpatient Referrer: Catina Harris MD 01/22/2020 03:00:[address] [facility] Outpatient Attender: TONO Cordero/Maribell/Kei/ Karla 01/22/2020 08:30:00 AM EST [facility] ([facility] Outpatient Referrer: Catina Harris MD 01/21/2020 11:28:[address] [facility] Radiology Imaging Outpatient Attender: TONO Cordero/Maribell/Kei/ Karla 01/13/2020 01:00:00 PM EST MED[facility] ([facility] Outpatient Attender: ALISON RAND [facility] Office 12/21 08:00:00 AM EST MEDENT ([facility] [address] [place] [address] 01/06/2020 12:00:00 AM EST eCW1 ([facility]) Outpatient Attender: ALISON RAND [facility] 05/2020 07:30:00 AM EST MEDENT ([facility] Outpatient Attender: Alda THOMSON [email or web address] 12:00:00 AM EST - 11/10/2019 10:23:25 AM EST [facility] Outpatient<td ID="encounterTypeDescripti onID1">NEW PATIENT WITH REFERRAL</td><td>Hugh Louie DO</td><td>Jorge Loza MD [facility]</td><td>11/07/2019</td><td>1:40PM</td><td>3:59PM</td><td><content ID="encounterDiagnosisID1-0">Cataract Senile Nuclear</content>, <content ID="encounterDiagnosisID1-1">Vitreous Disorders Degeneration</content>, <content ID="encounterDiagnosisID1-2">Macular Degeneration Nonexudative Bilateral Intermediate Dry Stage</content>, <content ID="encounterDiagnosisID1- 3">Essential Hypertension</content></td> Attender: HUGH Yepez MD [facility] 11/07/2019 01:40:00 PM EST - 11/07/2019 03:59:00 PM ES T Essential HypertensionMacular Degeneration Nonexudative Bilateral Intermediate Dry StageVitreous Disorders DegenerationCataract Senile Nuclear KIYA (Jorge Meyer MD [facility]) Essential Hypertension Macular Degeneration Nonexudative Bilate ral Intermediate Dry Stage Vitreous Disorders Degeneration Cataract Senile Nuclear Outpatient Attender: SANDRA [facility] 10/20/2019 08:30:00 AM EST MEDENT ([facility]) Outpatient Referrer: Catina Harris MD 10/14/2019 12:29:00 PM [facility] Radiology Imaging Outpatient Referrer: Catina Harris MD 10/14/2019 12:29:00 PM E [facility] Radiology Imaging Outpatient Referrer: Catina Harris MD 10/14/2019 11:45:00 AM E [facility] Radiology Imaging Immunizations Vaccine Date Status Description Data Source(s) VARICELLA-ZOSTER VIRUS GLYCOPROTEIN E,REC/AS01B ADJUVA NT/PF 08/31/2020 12:00:00 AM EDT completed [facility] Medications Medication Brand Name Start Date Product Form Dose Route Admi nistrative Instructions Pharmacy Instructions Status Indications Reaction Description Data Source(s) 1.479-0.188 gram 11/25/2020 12:00:00 AM EST tablet 24 DIRECTED DIRECTED SOLD: 11/25/2020 [facility] Sutab Sutab 11/23/2020 12:00:00 AM EST active [facility] ([facility]) 0.5 mg 11/19/2020 12:00:00 AM EST capsule 90 TAKE ONE CAPSULE BY MOUTH EVERY DAY TAKE ONE CAPSULE BY MOUTH EVERY DAY SOLD: 11/22/2020 [facility] 25-100 mg 11/18/2020 12:00:00 AM EST tablet 270 TAKE ONE TABLET BY MOUTH THREE TIMES A DAY TAKE ONE TABLET BY MOUTH THREE TIMES A DAY SOLD: 11/22/2020 [facility] 40 mg 11/18/2020 12:00:00 AM EST tablet 90 TAKE ONE TABLET BY MOUTH EVERY DAY TAKE ONE TABLET BY MOUTH EVERY DAY SOLD: 11/22/2020 [facility] 8 mEq 11/18/2020 12:00:00 AM EST tablet extended release 180 TAKE TWO TABLETS BY MOUTH EVERY DAY TAKE TWO TABLETS BY MOUTH EVERY DAY SOLD: 11/22/2020 [facility] 40 mg 11/18/2020 12:00:00 AM EST tablet 90 TAKE ONE TABLET BY MOUTH EVERY DAY TAKE ONE TABLET BY MOUTH EVERY DAY SOLD: 11/22/2020 [facility] 0.5 mg 10/12/2020 12:00:00 AM EST tablet 90 TAKE ONE TABLET BY MOUTH THREE TIMES A DAY TAKE ONE TABLET BY MOUTH THREE TIMES A DAY SOLD: 11/17/2020 [facility] 0.5 mg 10/12/2020 12:00:00 AM EST tablet 90 TAKE ONE TABLET BY MOUTH THREE TIMES A DAY TAKE ONE TABLET BY MOUTH THREE TIMES A DAY SOLD: 10/12/2020 [facility] Omeprazole 20 MG Delayed Release Oral Ca psule omeprazole (PRILOSEC) 20 MG capsule omeprazole (PRILOSEC) 20 MG capsule 10/07/2020 12:00:00 AM EST 20 mg Oral active Take 20 mg by mouth 2 (two) times a day [facility] 20 mg 10/07/2020 12:00:00 AM EST capsule,delayed release (DR/EC) 180 TAKE ONE CAPSULE BY MOUTH TWICE A DAY TAKE ONE CAPSULE BY MOUTH TWICE A DAY SOLD: 10/09/2020 [facility] 0.5 mg 08/31/2020 12:00:00 AM EDT tablet 90 TAKE ONE TABLET BY MOUTH THREE TIMES A DAY TAKE ONE TABLET BY MOUTH THREE TIMES A DAY SOLD: 09/03/2020 [facility] 40 mg 08/20/2020 12:00:00 AM EDT tablet 90 TAKE ONE TABLET BY MOUTH EVERY DAY TAKE ONE TABLET BY MOUTH EVERY DAY SOLD: 08/21/2020 [facility] 25-100 mg 08/20/2020 12:00:00 AM EDT tablet 270 TAKE ONE TABLET BY MOUTH THREE TIMES A DAY TAKE ONE TABLET BY MOUTH THREE TIMES A DAY SOLD: 08/21/2020 [facility] 40 mg 08/20/2020 12:00:00 AM EDT tablet 90 TAKE ONE TABLET BY MOUTH EVERY DAY TAKE ONE TABLET BY MOUTH EVERY DAY SOLD: 08/21/2020 [facility] 8 mEq 08/20/2020 12:00:00 AM EDT tablet extended release 180 TAKE TWO TABLETS BY MOUTH EVERY DAY TAKE TWO TABLETS BY MOUTH EVERY DAY SOLD: 08/21/2020 [facility] 0.5 mg 08/20/2020 12:00:00 AM EDT capsule 90 TAKE ONE CAPSULE BY MOUTH EVERY DAY TAKE ONE CAPSULE BY MOUTH EVERY DAY SOLD: 08/21/2020 [facility] 20 mg 08/19/2020 12:00:00 AM EDT tablet 180 TAKE TWO TABLETS BY MOUTH EVERY DAY TAKE TWO TABLETS BY MOUTH EVERY DAY SOLD: 12/04/2020 [facility] 20 mg 08/19/2020 12:00:00 AM EDT tablet 90 TAKE ONE TABLET BY MOUTH EVERY DAY TAKE ONE TABLET BY MOUTH EVERY DAY SOLD: 08/21/2020 [facility] 20 mg 08/19/2020 12:00:00 AM EDT tablet 180 TAKE TWO TABLETS BY MOUTH EVERY DAY TAKE TWO TABLETS BY MOUTH EVERY DAY SOLD: 08/21/2020 [facility] rivaroxaban 20 MG Oral Tablet [Xarelto] XARELTO 20 MG TABS X ARELTO 20 MG TABS 08/18/2020 12:00:00 AM EDT 20 mg Oral act maurice Permanent atrial fibrillation Take 1 tablet (20 mg total) by mouth jhon ly [facility] Permanent atrial fibrillation Furosemide 20 MG Oral Tablet furosemide (LASIX) 20 MG tablet furosemide (LASIX) 20 MG tablet 08/18/2020 12:00:00 AM EDT 40 mg Oral active Congestive heart failure, unspecified HF chronicity, unspecified heart failure type Take 2 tablets (40 mg total) by mouth daily [facility] Congestive heart failure, unspecified HF chronicity, unspecified heart failure type 25 mg 07/27/2020 12:00:00 AM EDT tablet 45 TAKE ONE-HALF TABLET BY MOUTH EVERY DAY TAKE ONE-HALF TABLET BY MOUTH EVERY DAY SOLD: 11/02/2020 [facility] 25 mg 07/27/2020 12:00:00 AM EDT tablet 45 TAKE ONE-HALF TABLET BY MOUTH EVERY DAY TAKE ONE-HALF TABLET BY MOUTH EVERY DAY SOLD: 07/30/2020 [facility] Spironolactone 25 MG Oral Tablet spironolactone (ALDAC TONE) 25 MG tablet spironolactone (ALDACTONE) 25 MG tablet 07/27/2020 12:00:00 AM EDT 12.5 mg Oral active Hypertension, benign Take 0.5 tablets (12.5 mg total) by mouth daily [facility] Hypertension, benign 500 mg 07/14/2020 12:00:00 AM EDT tablet 20 TAKE ONE TABLET BY MOUTH TWICE A DAY TAKE ONE TABLET BY MOUTH TWICE A DAY SOLD: 07/15/2020 [facility] 20 mg 07/07/2020 12:00:00 AM EDT capsule,delayed release (DR/EC) 180 TAKE ONE CAPSULE BY MOUTH TWICE A DAY TAKE ONE CAPSULE BY MOUTH TWICE A DAY SOLD: 07/09/2020 [facility] 0.5 mg 06/15/2020 12:00:00 AM EDT tablet 90 TAKE ONE TABLET BY MOUTH THREE TIMES A DAY TAKE ONE TABLET BY MOUTH THREE TIMES A DAY SOLD: 06/16/2020 [facility] 0.5 mg 06/15/2020 12:00:00 AM EDT tablet 90 TAKE ONE TABLET BY MOUTH THREE TIMES A DAY TAKE ONE TABLET BY MOUTH THREE TIMES A DAY SOLD: 07/30/2020 [facility] 5 mg 06/02/2020 12:00:00 AM EDT tablet 30 TAKE ONE TABLET BY MOUTH IN THE EVENING TAKE ONE TABLET BY MOUTH IN THE EVENING SOLD: 06/29/2020 [facility] 5 mg 06/02/2020 12:00:00 AM EDT tablet 30 TAKE ONE TABLET BY MOUTH IN THE EVENING TAKE ONE TABLET BY MOUTH IN THE EVENING SOLD: 06/03/2020 [facility] Donepezil hydrochloride 5 MG Oral Tablet [Aricept] Aricept 06/01/2020 12:00:00 AM EDT active MEDENT ([facility]) 0.5 mg 05/19/2020 12:00:00 AM EDT capsule 90 TAKE ONE CAPSULE BY MOUTH EVERY DAY TAKE ONE CAPSULE BY MOUTH EVERY DAY SOLD: 05/21/2020 [facility] 40 mg 05/19/2020 12:00:00 AM EDT tablet 90 TAKE ONE TABLET BY MOUTH EVERY DAY TAKE ONE TABLET BY MOUTH EVERY DAY SOLD: 05/21/2020 [facility] 20 mg 05/19/2020 12:00:00 AM EDT tablet 90 TAKE ONE TABLET BY MOUTH EVERY DAY TAKE ONE TABLET BY MOUTH EVERY DAY SOLD: 05/21/2020 [facility] 8 mEq 05/19/2020 12:00:00 AM EDT tablet extended release 90 TAKE ONE TABLET BY MOUTH EVERY DAY TAKE ONE TABLET BY MOUTH EVERY DAY SOLD: 05/21/2020 [facility] 40 mg 05/19/2020 12:00:00 AM EDT tablet 90 TAKE ONE TABLET BY MOUTH EVERY DAY TAKE ONE TABLET BY MOUTH EVERY DAY SOLD: 05/21/2020 [facility] ropinirole 0.5 MG Oral Tablet rOPINIRole (REQUIP) 0.5 MG tablet rOPINIRole (REQUIP) 0.5 MG tablet 05/06/2020 12:00:00 AM EDT 0.5 mg Oral active Take 0.5 mg by mouth 3 (three) times a day [facility] 0.5 mg 03/30/2020 12:00:00 AM EDT tablet 90 TAKE ONE-HALF TABLET BY MOUTH THREE TIMES A DAY FOR 2 WEEKS THEN 1 THREE TIMES A DAY TAKE ONE-HALF TABLET BY MOUTH THREE TIMES A DAY FOR 2 WEEKS THEN 1 THREE TIMES A DAY SOLD: 03/30/2020 [facility] 0.5 mg 03/30/2020 12:00:00 AM EDT tablet 90 TAKE ONE-HALF TABLET BY MOUTH THREE TIMES A DAY FOR 2 WEEKS THEN 1 THREE TIMES A DAY TAKE ONE-HALF TABLET BY MOUTH THREE TIMES A DAY FOR 2 WEEKS THEN 1 THREE TIMES A DAY SOLD: 05/07/2020 [facility] ropinirole 0.5 MG Oral Tablet [Requip] Requip 03/29/2020 12:00:00 AM EDT ORAL active MEDENT ([facility]) 25-100 mg 02/23/2020 12:00:00 AM EDT tablet 270 TAKE ONE TABLET BY MOUTH THREE TIMES A DAY TAKE ONE TABLET BY MOUTH THREE TIMES A DAY SOLD: 02/24/2020 [facility] 20 mg 02/23/2020 12:00:00 AM EDT tablet 90 TAKE ONE TABLET BY MOUTH EVERY DAY TAKE ONE TABLET BY MOUTH EVERY DAY SOLD: 02/24/2020 [facility] 8 mEq 02/23/2020 12:00:00 AM EDT tablet extended release 90 TAKE ONE TABLET BY MOUTH EVERY DAY TAKE ONE TABLET BY MOUTH EVERY DAY SOLD: 02/24/2020 [facility] 25-100 mg 02/23/2020 12:00:00 AM EDT tablet 270 TAKE ONE TABLET BY MOUTH THREE TIMES A DAY TAKE ONE TABLET BY MOUTH THREE TIMES A DAY SOLD: 05/26/2020 [facility] Carbidopa 25 MG / Levodopa 100 MG Oral T ablet carbidopa-levodopa (SINEMET) 25- 100 MG per tablet carbidopa-levodopa (SINEMET) 25-100 MG per tablet 04/2020 12:00:00 AM EDT active 3 (three ) times a day [facility] 0.5 mg 02/23/2020 12:00:00 AM EDT capsule 90 TAKE ONE CAPSULE BY MOUTH EVERY DAY TAKE ONE CAPSULE BY MOUTH EVERY DAY SOLD: 02/24/2020 [facility] 40 mg 02/23/2020 12:00:00 AM EDT tablet 90 TAKE ONE TABLET BY MOUTH EVERY DAY TAKE ONE TABLET BY MOUTH EVERY DAY SOLD: 02/24/2020 [facility] 40 mg 02/23/2020 12:00:00 AM EDT tablet 90 TAKE ONE TABLET BY MOUTH EVERY DAY TAKE ONE TABLET BY MOUTH EVERY DAY SOLD: 02/24/2020 [facility] 20 mg 01/27/2020 12:00:00 AM EDT tablet 90 TAKE ONE TABLET BY MOUTH EVERY DAY TAKE ONE TABLET BY MOUTH EVERY DAY SOLD: 05/07/2020 [facility] 25 mg 01/27/2020 12:00:00 AM EDT tablet 45 TAKE ONE-HALF TABLET BY MOUTH EVERY DAY TAKE ONE-HALF TABLET BY MOUTH EVERY DAY SOLD: 01/29/2020 [facility] 20 mg 01/27/2020 12:00:00 AM EDT tablet 90 TAKE ONE TABLET BY MOUTH EVERY DAY TAKE ONE TABLET BY MOUTH EVERY DAY SOLD: 01/29/2020 [facility] 25 mg 01/27/2020 12:00:00 AM EDT tablet 45 TAKE ONE-HALF TABLET BY MOUTH EVERY DAY TAKE ONE-HALF TABLET BY MOUTH EVERY DAY SOLD: 04/28/2020 [facility] 1 % 12/24/2019 12:00:00 AM EST gel 100 APPLY 2 GRAMS TO LEFT HAND THREE TIMES A DAY APPLY 2 GRAMS TO LEFT HAND THREE TIMES A DAY SOLD: 12/27/2019 [facility] Diclofenac Sodium 0.01 MG/MG Topical Gel Diclofenac Sodium 12/24/2019 12:00:00 AM EST active [facility] ([facility] Furosemide 20 MG Oral Tablet Furosemide 20 MG Oral Tablet 12:00:00 AM EST 1 active furosemide 20 MG Oral Tablet KIYA (Jorge Meyer MD [facility]) Benazepril-Hydrochlorothiazide 40 MG Oral Tablet Benaz epril-Hydrochlorothiazide 40 MG Oral Tablet 11/07/2019 12:00:00 AM EST 1 active Benazepril-Hydrochlorothiazide KIYA (Jorge Meyer MD [facility]) Spironolactone 25 MG Oral Tablet Spironolactone 25 MG Oral T ablet 11/07/2019 12:00:00 AM EST 1 active Spironol actone KIYA (Jorge Meyer MD [facility]) rivaroxaban 20 MG Oral Tablet [Xarelto] Xarelto 20 MG Oral Tablet Xarelto 20 MG Oral Tablet 11/07/2019 12:00:00 AM EST 1 active rivaroxaban 20 MG Oral Tablet [Xarelto] KIYA (Jorge Meyer MD [facility]) Dutasteride 0.5 MG Oral Capsule [Avodart] Avodart 0.5 MG Oral Capsule Avodart 0.5 MG Oral Capsule 11/07/2019 12:00:00 AM EST 1 active dutasteride 0.5 MG Oral Capsule [Avodart] KIYA (Jorge Meyer MD [facility]) Potassium Chloride 10 MEQ Extended Relea se Oral Tablet Potassium Chloride ER 10 MEQ Oral Tablet Extended Release Potassium Chloride ER 10 MEQ Oral Tablet Extended Release 11/07/2019 12:00:00 AM EST 1 a ctive potassium chloride 10 MEQ Extended Release Oral Tablet KIYA (Jorge Meyer MD [facility]) Pravastatin Sodium 40 MG Oral Tablet Pravastatin Sodium 40 M G Oral Tablet 11/07/2019 12:00:00 AM EST 1 active pravastatin sodium 40 MG Oral Tablet KIYA (Jorge Meyer MD [facility]) 2 ML Sodium Hyaluronate 10 MG/ML Prefilled Syringe [Euflexxa ] Euflexxa 05/30/2019 12:00:00 AM EDT completed MEDENT ([facility]) Insurance Providers Payer name Policy type / Coverage type Policy ID Covered green party ID Covered green party's relationship to stone Policy Stone Plan Information WELLCARE [id number] SP [id number] MEDICARE [id number] SP [id number] WELLCARE [id number] SP [id number] WELLCARE MEDICARE [id number] Shaina 06 [id number] WELLCARE MEDICARE [id number] WELLCARE O [id number] S [id number] WELLCARE [id number] SP [id number] WELLCARE [id number] SP [id number] ANSI-Health Maintenance Organization ( O) [id number] Todays Options Medigap Part B [id number] Self [id number] Wellcare Commercial [id number] Self [id number] [employer] (pr) Medigap Part B [id number] Self [id number] [employer] (pr) Medigap Part B [id number] Self [id number] Todays Options Medigap Part B [id number] Self [id number] Wellcare Commercial [id number] Self [id number] [employer] Medigap Part B [id number] Self [id number] Wellcare Commercial [id number] Self [id number] ANSI-Health Maintenance Organization ( O) [id number] ANSI-Medicare Part B [id number] SELF PAY ONLY [id number] SP [id number] TODAYS OPTIONS [id number] SP [id number] TODAYS OPTIONS [id number] SP [id number] TODAYS OPTIONS [id number] SP [id number] Todays Options Commercial [id number] Self [id number] Todays Options Commercial [id number] Self [id number] [facility] (tn) Medicalabasas Part B Self Todays Options Commercial Self TODAYS OPTIONS/SCOTTISH O [id number] O [id number] MEDICARE 4 [id number] 1 [id number] TODAYS OPT MEDICARE 11 [id number] 1 [id number] SELF PAY [address] [facility] 2 [id number] Problems, Conditions, and Diagnoses Code Display Name Description Problem Type Effective Dates Data Source(s) 315725028 Hemorrhage of rectum and anus Hemorrhage of rectum and anus Problem 11/23/2020 12:00:00 AM EST MEDENT ([facility]) I71.2 Thoracic aortic aneurysm without rupture Thoracic aortic aneurysm without rupture 60959925 11/17/2020 12:00:00 AM EST [facility] Z95.0 Pacemaker Pacemaker 50680520 11/17/2020 12:00:00 AM ES T [facility] I50.9 CHF (congestive heart failure) CHF (congestive heart f ailure) 22641181 08/18/2020 12:00:00 AM EDT [facility] [id number] Onychomycosis Onychomycosis Problem 08/09/2020 12:00:00 AM EDT [facility] ([facility] 401.9 Essential Hypertension Essential Hypertension Problem 06/29/2020 12:00:00 AM EDT KIYA ([facility]) [id number] Macular Degeneration Nonexudative Bilate ral Intermediate Dry Stage Macular Degeneration Nonexudative Bilateral Intermediate Dry Stage Problem 06/29/2020 12:00:00 AM EDT KIYA (Jorge [facility]) I63.9 Cerebrovascular accident (CVA) Cerebrovascular acciden t (CVA) 50031995 05/10/2020 12:00:00 AM EDT [facility] 11128492 Tremor Tremor Problem 02/05/2020 12:00:00 AM ED T MEDENT ([facility] ) 47787664 Essential hypertension Essential hypertension Problem 01/13/2020 12:00:00 AM EST MEDENT ([facility] ) 27821406 Abnormal gait Abnormal gait Problem 11/25/2019 12:00:00 AM EST [facility] ([facility] 35038387 Pronation Pronation Problem 11/25/2019 12:00:00 AM ES T [facility] ([facility] I48.21 Permanent atrial fibrillation Permanent atrial fibrill ation 32627254 11/10/2019 12:00:[address] [facility] E87.1 Chronic hyponatremia Chronic hyponatremia 64445460 11/10/2019 12:00:[address] [facility] E78.49 Other hyperlipidemia Other hyperlipidemia 53827860 11/10/2019 12:00:[address] [facility] I10 Essential hypertension Essential hypertension 25120353 11/10/2019 12:00:[address] 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 Z95.0 Presence of cardiac pacemaker Presence of cardiac pace maker Diagnosis 11/17/2020 02:44:[address] [facility] I50.9 Heart failure, unspecified Heart failure, unspecified Diagnosis 11/17/2020 02:44:48 PM EST [facility] I63.9 Cerebral infarction, unspecified Cerebral infarc tion, unspecified Diagnosis 11/17/2020 02:44:48 PM EST [facility] E78.49 Other hyperlipidemia Other hyperlipidemia Diagnosis 11/17/2020 02:44:48 PM EST [facility] I48.21 Permanent atrial fibrillation Permanent atrial fibrill ation Diagnosis 11/17/2020 02:44:48 PM EST [facility] E87.1 Hypo-osmolality and hyponatremia Hypo-osmolality and hyponatremia Diagnosis 08/18/2020 01:36:46 PM EDT [facility] I10 Essential (primary) hypertension Essential (primary) h ypertension Diagnosis 08/18/2020 01:36:46 PM EDT [facility] Surgeries/Procedures Procedure Description Date Indications Data Source(s) ECG ROUTINE ECG W/LEAST 12 LDS W/I&R POCT AMB EKG Routine 11/17/2020 4:57 PM EST Permanent atrial fibrillation 11/17/2020 09:57:00 PM EST Per manent atrial fibrillation [facility] Permanent atrial fibrillation BLOOD COUNT COMPLETE AUTO&AUTO DIFRNTL WBC COUNT CBC AND DIFFER ENTIAL Routine 10/22/2020 10/22/2020 12:00:00 AM [facility] BASIC METABOLIC PANEL CALCIUM TOTAL BASIC METABOLIC PANEL Routine 10/22/2020 10/22/2020 12:00:00 AM EST [facility] THYROID STIMULATING HORMONE TSH TSH Routine 10/18/2020 10/18/2020 12:00:00 AM EST [facility] No surgical / procedural history No surgical / procedural hi story 06/29/2020 12:00:00 AM EDT KIYA (Jorge [facility]) Intermediate Eye Exam Established Patient Intermediate Eye Exam Established Patient 06/29/2020 12:00:00 AM EDT KIYA (Leroy Meyer MD [facility]) Needle electromyography, each extremity, with related paraspinal areas, when performed, done with nerve conduction, amplitude and latency/velocity study; complete, five or more muscles studied, innervated by three or more nerves or four or more spinal levels (list separately in addition to the code for primary procedure). 04/22/2020 12:00:00 AM EDT MEDEN T ([facility] ) Needle electromyography, each extremity, with related paraspinal areas, when performed, done with nerve conduction, amplitude and latency/velocity study; complete, five or more muscles studied, innervated by three or more nerves or four or more spinal levels (list separately in addition to the code for primary procedure). 04/22/2020 12:00:00 AM EDT MEDEN T ([facility] ) 32605 Nerve conduction studies 13 or more studies NEW 201204/22/2020 12:00:00 AM EDT [facility] ([facility] MRI SPINAL CANAL LUMBAR W/O CONTRAST MATERIAL 04/17/20 12:00:00 AM EDT [facility] ([facility] ) MRI SPINAL CANAL LUMBAR W/O CONTRAST MATERIAL 04/17/20 12:00:00 AM EDT [facility] ([facility] ) Magnetic Resonance Angiogtaphy Head W/O Contrast Material(S) 03/31/2020 12:00:00 AM EDT [facility] ([facility] Magnetic Resonance Angiogtaphy Head W/O Contrast Material(S) 03/31/2020 12:00:00 AM EDT [facility] ([facility] Magnetic Resonance Angiography Neck W/O Contrast Materials 03/31/2020 12:00:00 AM EDT [facility] ([facility] ) Magnetic Resonance Angiography Neck W/O Contrast Materials 03/31/2020 12:00:00 AM EDT [facility] ([facility] ) TESTING AUTONOMIC NERVOUS SYSTEM FUNCTION 03/19/2020 1 2:00:00 AM EDT [facility] ([facility] ) TESTING AUTONOMIC NERVOUS SYSTEM FUNCTION 03/19/2020 1 2:00:00 AM EDT [facility] ([facility] ) TSTG ANS FUNCJ CARDIOVAGAL INNERVAJ PARASYMP 0 12:00:00 AM EDT [facility] ([facility] ) TSTG ANS FUNCJ CARDIOVAGAL INNERVAJ PARASYMP 0 12:00:00 AM EDT [facility] ([facility] ) MRI BRAIN BRAIN STEM W/O CONTRAST MATERIAL 02/13/2020 12:00:00 AM EDT [facility] ([facility] ) MRI BRAIN BRAIN STEM W/O CONTRAST MATERIAL 02/13/2020 12:00:00 AM EDT [facility] ([facility] ) MRI SPINAL CANAL CERVICAL W/O CONTRAST MATRL 0 12:00:00 AM EDT [facility] ([facility] ) MRI SPINAL CANAL CERVICAL W/O CONTRAST MATRL 0 12:00:00 AM EDT [facility] ([facility] ) ELECTROENCEPHALOGRAM W/REC AWAKE&ASLEEP 02/12/2020 12: 00:00 AM EDT [facility] ([facility] ) ELECTROENCEPHALOGRAM W/REC AWAKE&ASLEEP 02/12/2020 12: 00:00 AM EDT [facility] ([facility] ) Office Visit, Est Pt., Level 2 FC 01/06/2020 12:00:00 AM EST eCW1 ([facility]) Office Visit, Est Pt., Level 3 PC 01/06/2020 12:00:00 AM EST eCW1 ([facility]) RADEX HAND MINIMUM 3 VIEWS 12/24/2019 12:00:00 AM EST [facility] ([facility] ) RADEX HAND MINIMUM 3 VIEWS 11/21/2019 12:00:00 AM EST [facility] ([facility] ) Scodi Retina, with interpretation and re port (WAIVER OF LIABILITY ON FILE (ABN)) Scodi Retina, with interpretation and re port (WAIVER OF LIABILITY ON FILE (ABN)) 11/07/2019 12:00:00 AM [facility] ([facility]) Comprehensive Eye Exam (Signi/Sep Eval. & Man.) Compre hensive Eye Exam (Signi/Sep Eval. & Man.) 11/07/2019 12:00:00 AM [facility] HUERTAS ([facility]orge [facility]) Apply Splint Short Arm Static 10/29/2019 12:00:[address] [facility] ([facility] ) RADEX HAND MINIMUM 3 VIEWS 10/29/2019 12:00:00 AM EST [facility] ([facility]) CLTX METACARPAL FX W/O MANIPULATION EACH BONE 12/02/20 19 12:00:00 AM EST [facility] ([facility]) RADEX HAND MINIMUM 3 VIEWS 10/20/2019 12:00:00 AM EST [facility] ([facility]) Results ID Date Data Source [id number] 12/01/2020 11:20:00 AM EST [facility] Name Value Range Interpretation Code Description Data Naomy rce(s) Supporting Document(s) SARS coronavirus 2 RNA Not Detected [facility] [place] This lab was ordered by [facility] and reported by [facility]. ID Date Data Source [id number] 11/26/2020 04:59:03 PM EST [facility] Name Value Range Interpretation Code Description Data Naomy rce(s) Supporting Document(s) &PDF [facility] BIVLUz3mBwSJXkQk53/OBBevSHDla1MtEZrwPOc4MCskKGKnM8IhlNcrCGvTVZQWNXcQH00oYxEpNLZx pYy [file] 6z+ZQ0aGnWs2gvcbexw3UgwEngI9+KNmMSCQuV 2KlLeGmEUPq+P4FUIyXbefaXRmCnGTUVOHB6yJRv36Zp2bwkZsakM14aQhvzXGuj9u/BBo2p4aZ8dK0U iRN9/DZr9WM8w9z7Jrs5nllSNfD3x69sE/snLQytXNvTEUN1+oTAN/x3mF9DQQ7yb402n7Po6VBl+30f JcEUl2UjSAK3/aV580T3DIldZj3BRL1JZXnm3eeOlm EJs6jKlk4TmY+H0CRecVh/QmOdKann6+TaS1aMeBg47aKwT5cmu0q1UFm7rI4WGCF2mTL4/3uwql8pY9 arely+S53vLqk7vcev8/vDDDz/C995FeHpufYXUhH/sq4ju802Eqn9mBIA44DAOfixo0+aqqEy0dma5PcV6 [file] AgICAgICAgICAgICAgICAgICAgICAgICAgICAgICAgICAgICAgICAgICAgICAgICAgICAgICAgICAgIC AgICAgICAgICAgICAgICAgICAgICAgICAgICAgICAg ICAgICAgICANCiAgICAgICAgICAgICAgICAgICAgICAgICAgICAgICAgICAgICAgICAgICAgICAgICAg ICAgICAgICAgICAgICAgICAgICAgICAgICAgICAgICAgICAgICAgICAgICAgICAgICANCiAgICAgICAg ICAgICAgICAgICAgICAgICAgICAgICAgICAgICAgIC AgICAgICAgICAgICAgICAgICAgICAgICAgICAgICAgICAgICAgICAgICAgICAgICAgICAgICAgICAgIC ANCiAgICAgICAgICAgICAgICAgICAgICAgICAgICAgICAgICAgICAgICAgICAgICAgICAgICAgICAgIC AgICAgICAgICAgICAgICAgICAgICAgICAgICAgICAg ICAgICAgICAgICANCiAgICAgICAgICAgICAgICAgICAgICAgICAgICAgICAgICAgICAgICAgICAgICAg ICAgICAgICAgICAgICAgICAgICAgICAgICAgICAgICAgICAgICAgICAgICAgICAgICAgICANCiAgICAg ICAgICAgICAgICAgICAgICAgICAgICAgICAgICAgIC AgICAgICAgICAgICAgICAgICAgICAgICAgICAgICAgICAgICAgICAgICAgICAgICAgICAgICAgICAgIC AgICANCiAgICAgICAgICAgICAgICAgICAgICAgICAgICAgICAgICAgICAgICAgICAgICAgICAgICAgIC AgICAgICAgICAgICAgICAgICAgICAgICAgICAgICAg ICAgICAgICAgICAgICANCiAgICAgICAgICAgICAgICAgICAgICAgICAgICAgICAgICAgICAgICAgICAg ICAgICAgICAgICAgICAgICAgICAgICAgICAgICAgICAgICAgICAgICAgICAgICAgICAgICAgICANCiAg ICAgICAgICAgICAgICAgICAgICAgICAgICAgICAgIC AgICAgICAgICAgICAgICAgICAgICAgICAgICAgICAgICAgICAgICAgICAgICAgICAgICAgICAgICAgIC AgICAgICANCiAgICAgICAgICAgICAgICAgICAgICAgICAgICAgICAgICAgICAgICAgICAgICAgICAgIC AgICAgICAgICAgICAgICAgICAgICAgICAgICAgICAg ICAgICAgICAgICAgICAgICANCjw/kWOiU2glvSLgysD2T3aeZg5WRo2QGM8fg4UsFSLeORhbxnLhFdrX IeFpLGMnQpoLSda4XHhfUB6RqMAfI5HcA3SaAVbuXW1SIXFaVNDwgMXxRBUyYTAuZkJ8AFJyUXjpCR8G lXPfOKtwAMBvHNHpZN2OHPFwK265auPmHR8PYt9OQm SdDX3mux1IVPJfTPOdBhnGUzj4MVtkBI4BkTTjJ2OqxSPxt4gIJhHxQ4CJNRU9KJDmEs9EYDToFdVjLH XiTApxVN0pBDOnJUDCtKutaqI5GT5KHT5ylxPvLY0QXpNcHr6mEm2FLdHrK0ZiL0RzCKNlZLYKYMihVZ 9WAPLdUEQ9SOYpBLSvSUXKApYgJ99mTN6UJ0Ixc08a DhC0HMNrQyZzPHurPU89xVpriqYrgWNdiBhwVH9HOf7+DQplbmRvYmoNCnhyZWYNCjAgMTcNCjAwMDAw HWLhAXAeFkU8HxQnLf1GJTOmLZQrMPUbRkFuXTPiOXLcPTfoBRLmASK9Jcx0XORtKBWaIO1NReWxLUYv OYBuStKyMLYdKCHblc6RYEKgIFReTBZ7FGWvDIWdAM DfTEzhOCOdJKDtUdluQRRfXQSdRV2BPtEiKKTmEHP1ErOmMIZkIPQyqg5RHSAkYKSiMbgjAzYnHJNuTD KeNLadGREyBYS7SYZ1QRPfZXVfSN1WDvLmEXCxBRChYTtiLUEwPWOayi0XROGxAXMhFUA5FhYrQMOhQM ViYPcvJWAaVNS5WAL0DTVfDYOqWO0HVhQeFNFhUAF4 YQIvBJObFCMoqq3OTEPgHSWfAFH6NSWkQBNwFZQtZGzrUBLqQQT2ZuV8CTEpNAMnMZ8MCyKtVJDfVXA7 GOBkKULoALZcrf0KGRJdSQAlRuAlFOAoJZMeCELsYSy3boGtpSSkPKd7TX0EG8JhstZgICsSEo8Qs468 ETL7AGGzCa4FK6rvJp7yRBTuSDBBDn6AKUf6MESgZK PiDuMkKWttDeAfDAJzH3VmPNegK7VlQDJiP3A+HFm4KpVnBXU9L6F3LFOnFhV1JWKfYxG5W2F3QMGhKD V8Ko8wDTMDXd8+WCfrqYYznLawLZAIEkM9OTY6LBnqFEJWIg5Y ID Date Data Source [id number] 10/17/2020 04:26:00 PM EST [facility] Name Value Range Interpretation Code Description Data Naomy rce(s) Supporting Document(s) SARS coronavirus 2 RNA [Presence] in Res piratory specimen by NADEGE with probe detection [facility] This lab was ordered by [facility] a nd reported by [facility]. ID Date Data Source [id number] 09/16/2020 01:16:30 PM EDT [facility] Name Value Range Interpretation Code Description Data Naomy rce(s) Supporting Document(s) &PDF [facility] RABHVm5dPeMNPmIi31/DYVpdDYIuw1XzKJfmTAg6XRcfGQKwM5NdnWilAQiGRXLBLHzPY08dJkNjDYTu FcG [file] ICAgICAgICAgICAgICAgICAgICAgICAgICAgICAgIC AgICAgICAgICAgICAgICAgICAgICAgICAgICAgICAgICAgICAgICAgICAgICAgICAgICAgICAgICANCi AgICAgICAgICAgICAgICAgICAgICAgICAgICAgICAgICAgICAgICAgICAgICAgICAgICAgICAgICAgIC AgICAgICAgICAgICAgICAgICAgICAgICAgICAgICAg ICAgICAgICANCiAgICAgICAgICAgICAgICAgICAgICAgICAgICAgICAgICAgICAgICAgICAgICAgICAg ICAgICAgICAgICAgICAgICAgICAgICAgICAgICAgICAgICAgICAgICAgICAgICAgICANCiAgICAgICAg ICAgICAgICAgICAgICAgICAgICAgICAgICAgICAgIC AgICAgICAgICAgICAgICAgICAgICAgICAgICAgICAgICAgICAgICAgICAgICAgICAgICAgICAgICAgIC ANCiAgICAgICAgICAgICAgICAgICAgICAgICAgICAgICAgICAgICAgICAgICAgICAgICAgICAgICAgIC AgICAgICAgICAgICAgICAgICAgICAgICAgICAgICAg ICAgICAgICAgICANCiAgICAgICAgICAgICAgICAgICAgICAgICAgICAgICAgICAgICAgICAgICAgICAg ICAgICAgICAgICAgICAgICAgICAgICAgICAgICAgICAgICAgICAgICAgICAgICAgICAgICANCiAgICAg ICAgICAgICAgICAgICAgICAgICAgICAgICAgICAgIC AgICAgICAgICAgICAgICAgICAgICAgICAgICAgICAgICAgICAgICAgICAgICAgICAgICAgICAgICAgIC AgICANCiAgICAgICAgICAgICAgICAgICAgICAgICAgICAgICAgICAgICAgICAgICAgICAgICAgICAgIC AgICAgICAgICAgICAgICAgICAgICAgICAgICAgICAg ICAgICAgICAgICAgICANCiAgICAgICAgICAgICAgICAgICAgICAgICAgICAgICAgICAgICAgICAgICAg ICAgICAgICAgICAgICAgICAgICAgICAgICAgICAgICAgICAgICAgICAgICAgICAgICAgICAgICANCiAg ICAgICAgICAgICAgICAgICAgICAgICAgICAgICAgIC AgICAgICAgICAgICAgICAgICAgICAgICAgICAgICAgICAgICAgICAgICAgICAgICAgICAgICAgICAgIC AgICAgICANCjw/zAGtG9pfwBExgtS1U6ejLm3MWm6UFY0ju8VnNXIhFKxdgfEwVieCTpRhZRYxOotTDu t2VTooHP8TrTAgY8XhB1TdQYonQJ1JTQCkQNFymAVm LASrZOGoSpK8RNNdEAniMZ8ZoVYaUFelRFKpHKMgMnQlAGOhAO3RLWDtR554zfYiNh6HLs2ZJrMwSL3p sf4DRiSdMGIhDxyUKwz2QUmyEN7MkTFdD6EfvKNcx9tYGnZsT1IHUIL4YCEhWy0UTOEvAeZeCGFvJUau GZ8eGPHmUKDBlWhbhxH8ER8EAE0szcLfIZ8SZzZvZs 3fEu1KEjOzU4XrQ2XiFKCsPBCBAIfkLB8JZHFfEKP6QJSvNNYxYDOYOsHbA39nCT8WB2Rsc83hVuE0DK HiSfLrTAhdHU31aLfqxkFoxEBocSpoAA3SKf6+DQplbmRvYmoNCnhyZWYNCjAgMjINCjAwMDAwMDAwMD EkIjA1CjMaEz3SNZCgRDApFKDkXpYmDCBdBSWbMGws RBSdZRY4HUKaATZrRBOuYA2WUuWbHRWmYpTtYdUnKMCiDTAdcb7MPTFeZSMnYIE3YFLjRTFgPAKxWHoq TQBnOZHoAFt5NWOvGQPrZA5AXfXhYYYkPEU3BMOnZWRwLARyej5JVYQsDECsQIM9HnGgUAUnVQTqWUlh AHLvKOL3BtDzQRHoZHJbCB4LJnUxVOBdFGV2UZaqRF DoLXDztk3VXKTpCPScDsucGPWlJWHaXOApHBxbQRHwYDI6YVy0DPAcICIwRH0VQkOrKZPnAJsiTNYlMB DrCXRcqx2TLXPmKZNsYTR7WlTeOTVzOMMcYOmiBRPfYPG1INH9OOFpVRZdXF7KNvGqUEQvYLodAQTkQE TxLPFigo9XJGAdUYUzISY0BOJuUZMeWRIjPIgwVVWe IBA9Vis6UYMaSNTnVG0OUrLmDAXdZMQ4MlPqBGQyVOVhfy3JPAIsYRUmKTQ5QQUnGTFuARImBJrvAOQg YVG8DOFuDEFzFKQiTY2BXkGoSYSqQmVfCwLjKPYeBLKsjb2PqRRnaBzvsa3VFXrLOx4ZoIonNVWbYAaw El1ilNRvJMBcFIOKOn3OfgJtVGQuEFJMVYapUSGnSA j1AnHdJzKdBmOtTTZhGhluRLFdM8H4DyAsGGJxQJIbQfZ0SmudEyI1CLWdOPA0IZU3Y7NeJBOyXuLtMQ Y2ADY5LkC+TH5gOIf+Qh1Le9HgxbE8ghTuGFiqWMS5TL0EJEHID8JPYb== ID Date Data Source [id number] 07/30/2020 07:57:37 AM EDT [facility] Name Value Range Interpretation Code Description Data Naomy rce(s) Supporting Document(s) &PDF [facility] YRCLDv3cRfJIEpQh01/WSAohBJGyv2FsNMuyQZn8CKypHGIcS5HrwVmdGFaCAYPPGNbAA57hVuVaEFac waW [file] Kzo5eHtAM4gnQ6Ufq9PDCkIHKnK/jXoc4cvcj6NZICIAaS5pglHMfCqq+De [place] Garza/bEAWLcneG2XzE0xLrrh/ [file] AgICAgICAgICAgICAgICAgICAgICAgICAgICAgICAgICAgICAgICAgICAgICAgICAgICAgICAgICAgIC OuQZWvNBLhIDInPI9HHNZrWBOwHOXlGIVvUQNhRJAfEXZdFLWgADPqRZLkTPAjIJNkUZIuXNUbXMXnYG AgICAgICAgICAgICAgICAgICAgICAgICAgICAgICAg NZIpBMIhOZGuDAVyIFOwKFNbBRWlVO9UOJZnIHLlJHEgCQFoSMUzSUKpHAOkNDHtHURtECGqJKStNTOp ICAgICAgICAgICAgICAgICAgICAgICAgICAgICAgICAgICAgICAgICAgICAgICAgICAgICAgICAgICAg SXHnYI4BFWNlISMhVRKqGHKcSIHsTPWmOCEnPTRoRQ AgICAgICAgICAgICAgICAgICAgICAgICAgICAgICAgICAgICAgICAgICAgICAgICAgICAgICAgICAgIC KqTQBiTVHgSAYjXKNxII3VEGAoBEEtLRBwXABcAYMlARGkLWCsSIJvDGAbXYKfDSBfPUFcNYMkCARsWM AgICAgICAgICAgICAgICAgICAgICAgICAgICAgICAg AEDoODMqXATqHFGzULGjZWAhQQJxHYEjEM9TYHExBOQzXXYfFRXcMAZpSHQkWGWlOEJlQMOyCWHtQHTn ICAgICAgICAgICAgICAgICAgICAgICAgICAgICAgICAgICAgICAgICAgICAgICAgICAgICAgICAgICAg XLNqBAJkXG5SGGFiFNIhDAXwIZRjXLBpBIBmLBBoMO AgICAgICAgICAgICAgICAgICAgICAgICAgICAgICAgICAgICAgICAgICAgICAgICAgICAgICAgICAgIC JgHGIpDRKwLAIcAOVmULAhWW7ZQCWbLLIfVUCoZPGjEDCwJCYdMXNtVGHcVLCaWRZbXFHoIHKaEJDqYJ AgICAgICAgICAgICAgICAgICAgICAgICAgICAgICAg WHGcGVMzQVEiXHBpXJSxDEUdUOJsZIUwPZAjPS0AFXMjSEFsJWGvQXTgSMJcWLAxPOWlVEFmGLOaAVGt ICAgICAgICAgICAgICAgICAgICAgICAgICAgICAgICAgICAgICAgICAgICAgICAgICAgICAgICAgICAg OLAaIODyVAOtZW2KMXPlEJWsVAAiSHAsATCuRIUxQK AgICAgICAgICAgICAgICAgICAgICAgICAgICAgICAgICAgICAgICAgICAgICAgICAgICAgICAgICAgIC RbDLDhVGXeXUNfJXPvVNSrSNEsMV8IDV05qLNiz1A0UXTuNR2vsnv/Ep3XFCwvduLrtMBuOW2SJdCnSI 8qht2RJiUxHT9klw4CJYsFQrWaK2Q7mQUsHLMpIADD AuLbF60sKFxfUu70FLbpMUZaYiKcOCo2Bj8EAnQsO1paSBZdTeX4VAVaPoN0NDSnBrFaIMzsPY6Gb8Jw dCAyDQo+Gi9NRQ9vi3SzDQugCgOgIA5brv2PIVeCGrGiX9Q6aBAcZ2J0JNfmWj7EJWFeTNEyDfFoVXNH TAqkEM3JGS7hjnG0LC2AdWFxATZaBZGmpFQlLFu8W9 0wlTLlPGibMJ4CNWP+Terra+Gc5LOGQhRITeYLKeLgOyWVVUFdFyS02viPYhZCUpVOC8ARMkOs5PUBLwY8 EwhqWitLfdbkBuQJYbMTPNOR4PGGpyyoEndKBwwJxiEK49dBnrAI2QZr9LZuIaRP5rsv6YqVXtXn2QJB JzRh1KNNAcEOUkPRDvOXY7QNZwXnEyRRmtCGZsFEUy BJF9OBOhQOTuUU2JKzEmGCPoNwYcIKJcMUUaGVMlms5CVVFfYSXlFwuvKMVcBAPgYCVyJSplZPHnNGBp NIa5FNJrALJeDC6KRlMnVKVoESZ4RZYaIRYjZELzyx3JYVPbVTCtHfE6EEEmCVUtIYPyEPsnDJDdCKPa RVFfOGTmBBHcLV0VZcZaPKXeIWX3CkOjHVUhSEOrkm 3IROWtLOCmTVLyIzObFXTnLDDkEAmcKQYcEMT0GXA9NAPoIYJvXT6TQpGtTLRlVEJcGMKsMFIrXWJkws 5APMRvGSSkWMa5UQVjBNZmODVcMRkhLVToQVZ6ULAeRQSiCQGtHS9YCqDhZLKnIYGxHEvzGJXsEJRpoh 0KMDAwMDAxMTIwNSAwMDAwMCBuDQowMDAwMDExNTIy XTQbORZvJJ4FDhMzKRSgGEZ7EgHcLRCnZENmhw2HQDCgDOAbHVj4QZIuGVKeTQIpDJweAADzGXSqNZFa OMDsZYLxCX3IIaEjLXLpKAXqWeIaFSSwLYOjnj2QWZYgEPSwRdW8OPOmIOClHJVaRGmeABUeOKFpEEWr UBQxKMMqGJ5XQeQzSFSjQNfqQTGrMNCbEHLjak6ZBH CqVLUwAcSpIlKtONMqDKAmPLmfCZXdCYUyDPjxRCHtCLGcGP1OIxJdPSAsXvMrXGJgGPPoPPJwav8LgZ TraXereq3JOFpDXs6IuUviZWD1WGrgQj9luGBtWqNgZQYNIq2OxuRbHZHaTQRNHFnvYLXtEVE8RGZ9Od fsUxPiJIC5IDNzNiJ9CHO9HOQdZXUkYIZ1CtT2RpM0 QKG4MEI4JrKzIBOeCvG7XFUzUcluVyDzKRF7KFH+OM3gBBk+Pm0Vl3WajxY6peBpMZfhTWMtNS0ZQJFM T0YNCg== ID Date Data Source [id number] 02/05/2020 03:28:00 PM EDT [facility] ([facility], ) Name Value Range Interpretation Code Description Data Naomy rce(s) Supporting Document(s) Lead [Mass/volume] in Blood 3 ug/dL 0-4 [facility] ([facility], ) <content>Analysis by inductively coupled plasma/mass</content>
<content>spectrometry (ICP/MS)</content>
<content>Environmental Exposure:</content>
<content>WHO Recommendation <20</content>
<content>Occupational Exposure:</content>
<content>OSHA Lead Std 40</content>
<content>SARAI 30</content>
<content>.</content>
<content>Detection Limit = 1</content>
<content></content> Ceruloplasmin [Mass/volume] in Serum or Plasma 27.4 mg/dL 16.0-31.0 [facility] ([facility], ) Specimen Comment: Test(s) 286210-Glymjrd E(Alpha Tocopherol); 416988- Specimen Comment: Vitamin E(Gamma Tocopherol); 045355-Fducdpv B6; 664136- Specimen Comment: Vit. B1, Whole Blood; 552632-Nmnegq, Serum; 903622- Specimen Comment: Mercury, Blood Specimen Comment: was developed and its performance characteristics Specimen Comment: determined by [facility]. It has not been cleared or approved Specimen Comment: by the Food and Drug Administration. Copper [Mass/volume] in Serum or Plasma 111 ug/dL 72-166 [facility] ([facility], ) Detection Limit = 5 Mercury [Mass/volume] in Serum or Plasma Laboratory test result 0.0-1 4.9 [facility] ([facility], ) <content>Environmental Exposure: <15.0< /content>
<content>Occupational Exposure:</content>
<content>SARAI - Inorganic Mercury: 15.0</content>
<content>.</content>
<content>Detection Limit = 1.0</content>
<content></content> ID Date Data Source [id number] 02/05/2020 03:28:00 PM EDT [facility] ([facility], ) Name Value Range Interpretation Code Description Data Naomy rce(s) Supporting Document(s) Laboratory test finding (navigational concept) Laboratory test result [facility] ([facility]) Performed at: [facility] [id number] [place]: Adan Boogie MD, Phone: [phone] Performed at: [facility] [id number] [place]: Melani Richter MD, Phone: [phone] ID Date Data Source [id number] 02/05/2020 03:28:00 PM EDT [facility] ([facility]) Name Value Range Interpretation Code Description Data Naomy rce(s) Supporting Document(s) Antinuclear Antibodies Direct Laboratory test result [facility] ([facility]) Sjogren's Anti SS-B Laboratory test result 0.0-0.9 [facility] ([facility], ) Sjogren's Anti SS-A Laboratory test result 0.0-0.9 [facility] ([facility], ) ID Date Data Source [id number] 02/05/2020 03:28:00 PM EDT [facility] ([facility]) Name Value Range Interpretation Code Description Data Naomy rce(s) Supporting Document(s) Thiamine [Mass/volume] in Blood 120.8 nmol/L 66.5-200.0 [facility] ([facility]) Specimen Comment: Test(s) 160385-Kzpapts E(Alpha Tocopherol); 864899- Specimen Comment: Vitamin E(Gamma Tocopherol); 805153-Eervhbh B6; 795670- Specimen Comment: Vit. B1, Whole Blood; 061302-Rsqint, Serum; 997378- Specimen Comment: Mercury, Blood Specimen Comment: was developed and its performance characteristics Specimen Comment: determined by [facility]. It has not been cleared or approved Specimen Comment: by the Food and Drug Administration. Pyridoxine [Mass/volume] in Serum or Plasma 30.2 ug/L 5.3-46.7 [facility] ([facility]) Specimen Comment: Test(s) 642443-Esukfmk E(Alpha Tocopherol); 720630- Specimen Comment: Vitamin E(Gamma Tocopherol); 722384-Iyghqli B6; 731711- Specimen Comment: Vit. B1, Whole Blood; 370737-Fpmrpa, Serum; 232661- Specimen Comment: Mercury, Blood Specimen Comment: was developed and its performance characteristics Specimen Comment: determined by [facility]. It has not been cleared or approved Specimen Comment: by the Food and Drug Administration. ID Date Data Source [id number] 02/05/2020 03:28:00 PM EDT [facility] ([facility]) Name Value Range Interpretation Code Description Data Naomy rce(s) Supporting Document(s) Cytoplasmic Neutrop AB Anca-C Laboratory test result [facility] ([facility], ) Perinuclear AB Anca-P Laboratory test result [facility] ([facility]) The presence of positive fluorescence ex hibiting P-ANCA or C-ANCA patterns alone is not specific for the diagnosis of Shekhar's Granulomatosis (WG) or microscopic polyangiitis. Decisions about treatment should not be based solely on ANCA IFA results. The International ANCA Group Consensus recommends follow up testing of positive sera with both OK- 3 and MPO-ANCA enzyme immunoassays. As m any as 5% serum samples are positive only by EIA. Ref. AM J Clin Pathol 1999;111:507-513. Anca-Atypical Laboratory test result [facility] ([facility], ) The atypical pANCA pattern has been obse rved in a significant percentage of patients with ulcerative colitis, primary sclerosing cholangitis and autoimmune hepatitis. ID Date Data Source [id number] 02/05/2020 03:28:00 PM EDT [facility] ([facility]) Name Value Range Interpretation Code Description Data Naomy rce(s) Supporting Document(s) Vitamin E(Gamma Tocopherol) 1.3 mg/L 0.5-4.9 [facility] ([facility]) Reference intervals for alpha and gamma- tocopherol determined from National Health and Nutrition Examination Survey, 4083-0218. Individuals with alpha-tocopherol levels less than 5.0 mg/L are considered vitamin E deficient. Vitamin E(Alpha Tocopherol) 13.2 mg/L 9.0-29.0 [facility] ([facility]) ID Date Data Source [id number] 02/05/2020 03:28:00 PM EDT [facility] ([facility]) Name Value Range Interpretation Code Description Data Naomy rce(s) Supporting Document(s) Reagin Ab [Presence] in Serum by RPR Laboratory test result [facility] ([facility]) Rheumatoid factor [Units/volume] in Serum or Plasma Laboratory test result [facility] ([facility]) ID Date Data Source [id number] 02/05/2020 03:28:00 PM EDT [facility] ([facility]) Name Value Range Interpretation Code Description Data Naomy rce(s) Supporting Document(s) Vitamin B12 Level 885 pg/mL [facility] ([facility]) VITAMIN B12 NORMAL RANGE NORMAL 247 - 911 PG/ML INDETERMINATE 211 - 246 PG/ML DEFICIENT LESS THAN 211 PG/ML Folate Laboratory test result [facility] ([facility]) FOLATE NORMAL RANGE NORMAL GREATER THAN 5.4 NG/ML INDETERMINATE 3.4-5.4 NG/ML DEFICIENT LESS THAN 3.4 NG/ML ID Date Data Source [id number] 02/05/2020 03:28:00 PM EDT [facility] ([facility]) Name Value Range Interpretation Code Description Data Naomy rce(s) Supporting Document(s) Thyrotropin [Units/volume] in Serum or Plasma 0.763 uIU/ML 0.358-3.74 0 [facility] ([facility]) ID Date Data Source [id number] 02/05/2020 03:28:00 PM EDT [facility] ([facility]) Name Value Range Interpretation Code Description Data Naomy rce(s) Supporting Document(s) Glucose, Fasting 92 mg/dL 70-100 [facility] ([facility]) Creatinine For GFR 0.79 mg/dL 0.70-1.30 [facility] ([facility]) Blood Urea Nitrogen 15 mg/dL 7-18 [facility] ([facility]) Glomerular Filtration Rate Laboratory test result [facility] ([facility]) <content>Units are mL/min/1.73 m2</content>
<content></content>
<content>Chronic Kidney Disease Staging per NKF:</content>
<content></content>
<content>Stage I & II GFR >=60 Normal to Mildly Decreased</content>
<content>Stage III GFR 30- 59 Moderately Decreased</content>
<content>Stage IV GFR 15-29 Severely Decreased</content>
<content>Stage V GFR <15 Very Little GFR Left</content>
<content>ESRD GFR <15 on BOBBIN MARKER</content>
<content></content> Sodium Level 133 meq/L 136-145 [facility] ([facility]) Potassium Serum 4.2 meq/L 3.5-5.1 [facility] ([facility]) Carbon Dioxide Level 30 meq/L 21-32 [facility] ([facility]) Chloride Level 98 meq/L 98-107 [facility] ([facility]) Ast/Sgot 26 U/L 7-37 [facility] ([facility]) Calcium Level 9.4 mg/dL 8.8-10.2 [facility] ([facility]) Anion Gap 5 meq/L 8-16 [facility] ([facility]) Alkaline Phosphatase 106 U/L 45-117 [facility] ([facility]) Alt/SGPT 11 U/L 12-78 [facility] ([facility]) Total Protein 7.1 GM/DL 6.4-8.2 [facility] ([facility]) Bilirubin,Total 0.7 mg/dL 0.2-1.0 [facility] ([facility]) Albumin 4.3 GM/DL 3.2-5.2 [facility] ([facility]) Albumin/Globulin Ratio 1.54 1.00-1.93 [facility] ([facility]) ID Date Data Source [id number] 02/05/2020 03:28:00 PM EDT [facility] ([facility]) Name Value Range Interpretation Code Description Data Naomy rce(s) Supporting Document(s) Erythrocyte sedimentation rate by 2H Westergren method 11 mm/hr 0-2 0 [facility] ([facility]) ID Date Data Source [id number] 02/05/2020 03:28:00 PM EDT [facility] ([facility]) Name Value Range Interpretation Code Description Data Naomy rce(s) Supporting Document(s) White Blood Count 4.7 10 4.0-10.0 [facility] ([facility]) Red Blood Count 3.79 10 4.30-6.10 [facility] ([facility]) Hemoglobin 12.4 g/dL 13.5-17.5 [facility] ([facility]) Hematocrit 36.6 % 42.0-52.0 [facility] ([facility]) Mean Corpuscular Hemoglobin 32.7 pg 27.0-33.0 [facility] ([facility]) Mean Corpuscular Volume 96.6 fl 80.0-96.0 [facility] ([facility]) Red Cell Distribution Width 12.6 % 11.5-14.5 [facility] ([facility]) Mean Corpuscular HGB Conc 33.9 g/dL 32.0-36.5 [facility] ([facility]) Neutrophils % 54.6 % 36.0-66.0 [facility] ([facility]) Platelet Count, Automated 162 10 150-450 [facility] ([facility]) Eos % 1.1 % 0.0-3.0 [facility] [place] % 7.8 % 0.0-5.0 [facility] Lymph % 35.7 % 24.0-44.0 [facility] ([facility]) Nucleated Red Blood Cell % 0.0 % 0-0 [facility] ([facility]) Immature Granulocyte % 0.2 % 0-3.0 [facility] Baso % 0.6 % 0.0-1.0 [facility] ([facility]) Neutrophils # 2.6 10 1.5-8.5 [facility] ([facility] ) [place] # 0.4 10 0.0-0.8 [facility] ([facility], ) Lymph # 1.7 10 1.5-5.0 [facility] ([facility], ) Eos # 0.1 10 0.0-0.5 [facility] ([facility] ) Baso # 0.0 10 0.0-0.2 [facility] ([facility], ) ID Date Data Source [id number] 10/14/2019 12:00:00 AM EST [facility] Catina Harris MD Patient Name: GEORGE JAY [facility] Date of : 1940[place] [address] Date of Exam: 10/14/2019PH#: Fax: [phone] EXAM: WRIST LEFT (COMPLETE) X-RAYCLINICAL INFORMATION: Pain after trauma.Four views. These images were obtained using digital radiography.The bones are demineralized. Degenerative changes are seen throughout thewrist. There is a fracture involving the base of the 5th metacarpal whichis seen best on the external oblique view. The fracture is nondisplacedother than the minimal degree of impaction. I see no other definitefractures.IMPRESSION:1. Fracture involving the base of the 5th metacarpal as described above.2. Chronic changes seen as well.LETY Martines/Jennifer you for referring HELENE JAY to our office.Electronically Signed - RDAHA J CHILDERS, DO 10/14/19 13:35 Name Value Range Interpretation Code Description Data Naomy rce(s) Supporting Document(s) Procedure Social History Code Duration Value Status Description Data Source(s ) Alcohol intake 11/17/2020 12:00:00 AM EST Not Currently completed [facility] Smoking 11/17/2020 12:00:00 AM EST Never smoker completed Never s moker [facility] Smoking 06/29/2020 03:19:18 PM EDT Never smoked tobacco (findi ng) completed Never smoked tobacco (finding) KIYA (Jorge Meyer MD [facility]) Vital Signs ID Date Data Source UNK Name Value Range Interpretation Code Description Data Source(s) Body temperature 97.5 [degF] 97.5 [degF] [facility] ([facility]) Body weight 75.751 kg 75.751 kg [facility] Body mass index (BMI) [Ratio] 24.7 kg/m2 24.7 k g/m2 [facility] ([facility]) Heart rate 69 /min 69 /min [facility]) Diastolic blood pressure 67 mm[Hg] 67 mm[Hg] [facility] ([facility]) Systolic blood pressure 124 mm[Hg] 124 mm[Hg] M [facility] ([facility]) Body weight 167.00 [lb_av] 167.00 [lb_av] [facility] T ([facility]) Body height 69 [in_i] 69 [in_i] [facility]) 5'9" Diastolic blood pressure 68 mm[Hg] 68 mm[Hg] [facility] Systolic blood pressure 134 mm[Hg] 134 mm[Hg] [facility] Oxygen saturation in Arterial blood by Pulse oximetry 94 % 94 % [facility] Body mass index (BMI) [Ratio] 24.69 kg/m2 24.69 kg/m2 [facility] Body weight 75.841 kg 75.841 kg [facility] Body height 175.3 cm 175.3 cm [facility] Heart rate 60 /min 60 /min [facility] Body weight 80.968 kg 80.968 kg [facility] ([facility]) Body mass index (BMI) [Ratio] 26.4 kg/m2 26.4 k g/m2 [facility] ([facility]) Body weight 178.50 [lb_av] 178.50 [lb_av] [facility] T ([facility]) Body height 69 [in_i] 69 [in_i] [facility] ([facility]) 5'9" Body temperature 98.1 [degF] 98.1 [degF] [facility] ([facility]) Diastolic blood pressure 70 mm[Hg] 70 mm[Hg] [facility] ([facility]) Systolic blood pressure 130 mm[Hg] 130 mm[Hg] [facility] ([facility]) Body weight 81.308 kg 81.308 kg [facility] ([facility]) Body mass index (BMI) [Ratio] 26.5 kg/m2 26.5 k g/m2 [facility] ([facility]) Body weight 179.25 [lb_av] 179.25 [lb_av] [facility] ([facility]) Body height 69 [in_i] 69 [in_i] [facility] ([facility]) 5'9" Diastolic blood pressure 74 mm[Hg] 74 mm[Hg] [facility] ([facility]) Systolic blood pressure 129 mm[Hg] 129 mm[Hg] [facility] ([facility]) Body weight 82.102 kg 82.102 kg [facility] ([facility]) Body mass index (BMI) [Ratio] 26.7 kg/m2 26.7 k g/m2 [facility] ([facility]) Body weight 181.00 [lb_av] 181.00 [lb_av] [facility] ([facility]) Body height 69 [in_i] 69 [in_i] [facility] ([facility]) 5'9" Diastolic blood pressure 68 mm[Hg] 68 mm[Hg] [facility] ([facility]) Systolic blood pressure 144 mm[Hg] 144 mm[Hg] [facility] ([facility], ) Diastolic blood pressure mm[Hg] eCW1 ([facility]) Systolic blood pressure 120 mm[Hg] 120 mm[Hg] e CW1 ([facility]) Body temperature 97.8 [degF] 97.8 [degF] eCW1 ( [facility]) Respiratory rate 17 /min 17 /min eCW1 ([facility]) Heart rate 59 /min 59 /min eCW1 ([facility]) Body mass index (BMI) [Ratio] 27.21 kg/m2 27.21 kg/m2 eCW1 ([facility]) Body height 68 [in_us] 68 [in_us] eCW1 ([facility]) Body weight Measured 179 [lb_av] 179 [lb_av] eC W1 ([facility]) Body mass index (BMI) [Ratio] 26.6 kg/m2 26.6 k g/m2 MEDENT ([facility] Heart rate 49 /min 49 /min [facility] ([facility] Diastolic blood pressure 70 mm[Hg] 70 mm[Hg] [facility] ([facility] Systolic blood pressure 140 mm[Hg] 140 mm[Hg] M EDENT ([facility] Body weight 180.00 [lb_av] 180.00 [lb_av] MEDEN T ([facility] Body height 69 [in_i] 69 [in_i] [facility] ([facility] 5'9" Patient Treatment Plan of Care Planned Activity Planned Date Details Description Data Source (s) Omeprazole 20 MG Delayed Release Oral Capsule 10/07/2020 12:00:00 A M EST [facility] Furosemide 20 MG Oral Tablet 08/18/2020 12:00:00 AM EDT [facility] rivaroxaban 20 MG Oral Tablet [Xarelto] 08/18/2020 12:00:00 AM EDT [facility] Spironolactone 25 MG Oral Tablet 07/27/2020 12:00:00 AM EDT [facility] ropinirole 0.5 MG Oral Tablet 05/06/2020 12:00:00 AM EDT [facility] Carbidopa 25 MG / Levodopa 100 MG Oral Tablet 02/23/2020 12:00:00 A M EDT [facility]
--- OUTSIDE RECORDS SUMMARY | 2020-12-06 08:03 | CCD | Continuity of Care Document ---
Author Author Jerson PEARSON M.D. Organization Unknown Address [address] [place] [id number] Phone [phone] Care Team Providers Care Gis Instructor Name Role Phone Catina Harris M.D. AUTM [phone] Problems Active Problems Provider Date Tremor Ashil Pearson M.D. Onset: 02/05/2020 Social History Type Date Description Comments Sex Unknown Allergies, Adverse Reactions, Alerts Active Allergies Reaction Severity Comments Date Naproxen 02/05/2020 Medications Active Medications SIG Qnty Indications Ordering Provide r Date Aricept 5mg Tablets 1 tab nightly 30tabs Ashli Pearson M.D. 06/01/2020 Requip 0.5mg Tablets 1 tab by mouth three times a day 90tabs Ashli Pearson M.D. 03/29/2020 Immunizations Description No Information Available Vital Signs Description No Information Available Results Description No Information Available Procedures Date Code Description Status 04/22/2020 89439 Nerve Conduction 13+ Studies Com pleted 04/22/2020 65130 Needle Electromyography Complete , Five Or More Muscles Studied Completed 04/22/2020 96642 Needle Electromyography Complete , Five Or More Muscles Studied Completed 04/17/2020 27521 MRI Spine Lumbar W/O Contrast Co mpleted 04/17/2020 34433 MRI Spine Lumbar W/O Contrast Co mpleted 03/31/2020 64907 Magnetic Resonance Angiography N rachel W/O Contrast Materials Completed 03/31/2020 96960 Magnetic Resonance Angiography N rachel W/O Contrast Materials Completed 03/31/2020 32252 Magnetic Resonance Angiogtaphy H ead W/O Contrast Material(S) Completed 03/31/2020 89676 Magnetic Resonance Angiogtaphy H ead W/O Contrast Material(S) Completed Medical Devices Description No Information Available Encounters Type Date Location Provider Dx Diagnosis Office Visit 09/27/2020 3:45p [place] M[place] M47.892 Other spondylosis, cervical region R26.2 Difficulty in walking, not e lsewhere classified M47.897 Other spondylosis, lumbosacr al region G20 Parkinson's disease G60.9 Hereditary and idiopathic ne uropathy, unspecified M54.16 Radiculopathy, lumbar region Office Visit 05/31/2020 1:00p [place] office [place] Ashli Pearson M.D. M47.892 Other spondylosis, cervical region G47.51 Confusional arousals R41.3 Other amnesia R20.2 Paresthesia of skin G20 Parkinson's disease G60.9 Hereditary and idiopathic ne uropathy, unspecified M54.16 Radiculopathy, lumbar region Office Visit 04/16/2020 10:00a [place] office [place] Ashli Pearson M.D. M47.892 Other spondylosis, cervical region R26.2 Difficulty in walking, not e lsewhere classified M54.5 Low back pain R41.3 Other amnesia R20.2 Paresthesia of skin G20 Parkinson's disease M25.551 Pain in right hip M25.552 Pain in left hip M79.604 Pain in right leg M79.605 Pain in left leg Assessments Date Code Description Provider 09/27/2020 M47.892 Other spondylosis, cervical yoan on Ashli Pearson M.D. 09/27/2020 R26.2 Difficulty in walking, not elsew here classified Ashli Pearson M.D. 09/27/2020 M47.897 Other spondylosis, lumbosacral r egion Ashli Pearson M.D. 09/27/2020 G20 Parkinson's disease Ashli Pearson M.D. 09/27/2020 G60.9 Hereditary and idiopathic neurop athy, unspecified Ashli MichelEssence reddyDYun 09/27/2020 M54.16 Radiculopathy, lumbar region Isis Pearson M.D. 05/31/2020 M47.892 Other spondylosis, cervical yoan on Ashlius Michel M.D. 05/31/2020 G47.51 Confusional arousals Ashli Lati f, M.D. 05/31/2020 R41.3 Other amnesia Ashli Michel, M. D. 05/31/2020 R20.2 Paresthesia of skin Ashli Michel , M.D. 05/31/2020 G20 Parkinson's disease Ashli Michel , M.D. 05/31/2020 G60.9 Hereditary and idiopathic neurop athy, unspecified Ashli Michel, M.D. 05/31/2020 M54.16 Radiculopathy, lumbar region Sun dus Michel, M.D. 04/22/2020 M54.5 Low back pain Rosaura Michel, M.D . 04/22/2020 M54.16 Radiculopathy, lumbar region Abd ul Michel, M.D. 04/17/2020 M54.5 Low back pain Rosaura Michel, M.D . 04/17/2020 M54.5 Low back pain MRI 04/17/2020 R20.2 Paresthesia of skin Rosaura Michel, M.D. 04/17/2020 R20.2 Paresthesia of skin MRI 04/16/2020 M47.892 Other spondylosis, cervical yoan on Ashli Michel, M.D. 04/16/2020 R26.2 Difficulty in walking, not elsew here classified Ashli Michel, M.D. 04/16/2020 M54.5 Low back pain Ashli Michel, M. D. 04/16/2020 R41.3 Other amnesia Ashli Michel, M. D. 04/16/2020 R20.2 Paresthesia of skin Ashli Michel , M.D. 04/16/2020 G20 Parkinson's disease Ashli Michel , M.D. 04/16/2020 M25.551 Pain in right hip Ashli Michel, M.D. 04/16/2020 M25.552 Pain in left hip Ashli Michel, M .D. 04/16/2020 M79.604 Pain in right leg Ashli Michel, M.D. 04/16/2020 M79.605 Pain in left leg Ashli Mcihel, M .D. 03/31/2020 R42 Dizziness and giddiness Rosaura La tif, M.D. 03/31/2020 R42 Dizziness and giddiness MRI Plan of Treatment Future Appointment(s):* 01/25/2021 3:30 pm - Ashli Pearson M.D. at Main office [place] Functional Status Description No Information Available Mental Status Description No Information Available Referrals Description No Information Available
--- OUTSIDE RECORDS SUMMARY | 2020-12-06 08:03 | CCD | Continuity of Care Document ---
Author Author Jerson PEARSON M.D. Organization Unknown Address [address] [place] [id number] Phone [phone] Care Team Providers Care Psychiatric Np Name Role Phone Catina Harris M.D. AUTM [phone] Problems Active Problems Provider Date Tremor Ashli Pearson M.D. Onset: 02/05/2020 Social History Type [...] Available Procedures Date Code Description Status 04/22/2020 63486 Nerve Conduction 13+ Studies Com pleted 04/22/2020 41913 Needle Electromyography Complete , Five Or More Muscles Studied Completed 04/22/2020 56651 Needle Electromyography Complete , Five Or More Muscles Studied Completed 04/17/2020 98149 MRI Spine Lumbar W/O Contrast Co mpleted 04/17/2020 01395 MRI Spine Lumbar W/O Contrast Co mpleted 03/31/2020 05658 Magnetic Resonance Angiography N rachel W/O Contrast Materials Completed 03/31/2020 07776 Magnetic Resonance Angiography N rachel W/O Contrast Materials Completed 03/31/2020 82526 Magnetic Resonance Angiogtaphy H ead W/O Contrast Material(S) Completed 03/31/2020 75980 Magnetic Resonance Angiogtaphy H ead W/O Contrast Material(S) Completed Medical Devices Description No Information Available Encounters Type Date Location Provider Dx Diagnosis Office Visit 05/31/2020 1:00p Main office - [place] Ashli Pearson M.D. M47.892 Other spondylosis, cervical region G47.51 Confusional arousals R41.3 Other amnesia R20.2 Paresthesia of skin G20 Parkinson's disease G60.9 Hereditary and idiopathic ne uropathy, unspecified M54.16 Radiculopathy, lumbar region Office Visit 04/16/2020 10:00a Main office - [place] Ashli Pearson M.D. M47.892 Other spondylosis, cervical region R26.2 Difficulty in walking, not e lsewhere classified M54.5 Low back pain R41.3 Other amnesia R20.2 Paresthesia of skin G20 Parkinson's disease M25.551 Pain in right hip M25.552 Pain in left hip M79.604 Pain in right leg M79.605 Pain in left leg Office Visit 03/29/2020 1:30p Main office - [place] Ashli Pearson M.D. M47.892 Other spondylosis, cervical region I67.89 Other cerebrovascular diseas e G47.00 Insomnia, unspecified R20.2 Paresthesia of skin G20 Parkinson's disease M62.9 Disorder of muscle, unspecif ied Assessments Date Code Description Provider 05/31/2020 M47.892 Other spondylosis, cervical yoan on Ashlius Michel M.D. 05/31/2020 G47.51 Confusional arousals Ashli tamayo M.D. 05/31/2020 R41.3 Other amnesia AshliEssence Ho 05/31/2020 R20.2 Paresthesia of skin Ashli Essence PearsonDYun 05/31/2020 G20 Parkinson's disease Ashli MichelCindy reddy 05/31/2020 G60.9 Hereditary and idiopathic neurop athy, unspecified Ashli Michel, EssenceDYun 05/31/2020 M54.16 Radiculopathy, lumbar region Sun dus Cindy Pearosn 04/22/2020 M54.5 Low back pain Rosaura MichelAmor reddy 04/22/2020 M54.16 Radiculopathy, lumbar region Abd ul [...] 04/16/2020 M79.605 Pain in left leg Ashli Michel, M .D. 03/31/2020 R42 Dizziness and giddiness Rosaura La tif, M.D. 03/31/2020 R42 Dizziness and giddiness MRI 03/29/2020 M47.892 Other spondylosis, cervical yoan on Ashli Michel, M.D. 03/29/2020 I67.89 Other cerebrovascular disease Trimble ndus Michel, M.D. 03/29/2020 G47.00 Insomnia, unspecified Ashli Lat if, M.D. 03/29/2020 R20.2 Paresthesia of skin Ashli Michel , M.D. 03/29/2020 G20 Parkinson's disease Ashli Michel , M.D. 03/29/2020 M62.9 Disorder of muscle, unspecified Ashli Michel, M.D. Plan of Treatment No Information Available Functional Status Description No Information Available Mental Status Description No Information Available Referrals Description No Information Available
--- NOTE | 2020-12-06 09:04 | ROOR ---
Patient Name: Jerson Seymour Procedure Date: 12/06/2020 8:47 AM Date of : 1940 Age: 80 Room: [facility] Gender: Male Note Status: Finalized Procedure: Upper Endoscopy + Biopsies Indications: Iron deficiency anemia Providers: Placido Louie MD Referring MD: YAIR ALMAZAN MD Requesting Provider: Medicines: Monitored Anesthesia Care Complications: No immediate complications. Procedure: Pre-Anesthesia Assessment: - The heart rate, respiratory rate, oxygen saturations, blood pressure, adequacy of pulmonary ventilation, and response to care were monitored throughout the procedure. The Endoscope was introduced through the mouth, and advanced to the second part of duodenum. The upper GI endoscopy was accomplished without difficulty. The patient tolerated the procedure well. Findings: The Z-line was regular and was found 40 cm from the incisors. No other significant abnormalities were identified in a careful examination of the stomach. Biopsies were taken with a cold forceps in the gastric antrum for Helicobacter pylori testing. The exam of the duodenum was otherwise normal. Biopsies for histology were taken with a cold forceps in the first portion of the duodenum for evaluation of celiac disease. The exam was otherwise without abnormality. Impression: - Z-line regular, 40 cm from the incisors. - The examination was otherwise normal. - Biopsies were taken with a cold forceps for Helicobacter pylori testing. - Biopsies were taken with a cold forceps for evaluation of celiac disease. - The examination was otherwise normal. Recommendation: - Patient has a contact number available for emergencies. The signs and symptoms of potential delayed complications were discussed with the patient. Return to normal activities tomorrow. Written discharge instructions were provided to the patient. - High fiber diet. - Discharge patient to home. - Continue present medications. - Await pathology results. - Telephone GI clinic for pathology results in 1 week. - Return to referring physician. - The findings and recommendations were discussed with the patient. Procedure Code(s): --- Professional --- 67909, Esophagogastroduodenoscopy, flexible, transoral; with biopsy, single or multiple Diagnosis Code(s): --- Professional --- D50.9, Iron deficiency anemia, unspecified CPT copyright 2019 [employer]. All rights reserved. The codes documented in this report are preliminary and upon product development assistant review may be revised to meet current compliance requirements. Placido Louie MD Placido Louie MD 12/06/2020 9:04:20 AM Electronically signed by Placido Louie MD Number of Addenda: 0 Note Initiated On: 12/06/2020 8:47 AM Estimated Blood Loss: Estimated blood loss: none.
--- NOTE | 2020-12-06 09:22 | ROOR ---
Patient Name: Jerson Seymour Procedure Date: 12/06/2020 8:48 AM Date of : 1940 Age: 80 Room: [facility] Gender: Male Note Status: Finalized Procedure: Total Colonoscopy to Cecum Indications: Iron deficiency anemia Providers: Placido Louie MD Referring MD: YAIR ALMAZAN MD Requesting Provider: Medicines: Monitored Anesthesia Care Complications: No immediate complications. Procedure: Pre-Anesthesia Assessment: - The heart rate, respiratory rate, oxygen saturations, blood pressure, adequacy of pulmonary ventilation, and response to care were monitored throughout the procedure. The Colonoscope was introduced through the anus and advanced to the cecum, identified by appendiceal orifice and ileocecal valve. The colonoscopy was performed without difficulty. The patient tolerated the procedure well. The quality of the bowel preparation was excellent. Findings: The perianal and digital rectal examinations were normal. Non-bleeding internal hemorrhoids were found during retroflexion. The hemorrhoids were small and Grade I (internal hemorrhoids that do not prolapse). Scattered small-mouthed diverticula were found in the recto-sigmoid colon, sigmoid colon and descending colon. The exam was otherwise without abnormality on direct and retroflexion views. Impression: - Non-bleeding internal hemorrhoids. - Diverticulosis in the recto-sigmoid colon, in the sigmoid colon and in the descending colon. - The examination was otherwise normal on direct and retroflexion views. - No specimens collected. - The exam was otherwise normal to the cecum. Recommendation: - Patient has a contact number available for emergencies. The signs and symptoms of potential delayed complications were discussed with the patient. Return to normal activities tomorrow. Written discharge instructions were provided to the patient. - High fiber diet. - Continue present medications. - Repeat colonoscopy is not recommended due to current age (66 years or older) for screening purposes. - Return to referring physician. - The findings and recommendations were discussed with the patient. Procedure Code(s): --- Professional --- 17742, Colonoscopy, flexible; diagnostic, including collection of specimen(s) by brushing or washing, when performed (separate procedure) Diagnosis Code(s): --- Professional --- K64.0, First degree hemorrhoids D50.9, Iron deficiency anemia, unspecified K57.30, Diverticulosis of large intestine without perforation or abscess without bleeding CPT copyright 2019 [employer]. All rights reserved. The codes documented in this report are preliminary and upon window systems administrator review may be revised to meet current compliance requirements. Placido Louie MD Placido Louie MD 12/06/2020 9:21:41 AM Electronically signed by Placido Louie MD Number of Addenda: 0 Note Initiated On: 12/06/2020 8:48 AM Estimated Blood Loss: Estimated blood loss: none.
[2020-12-06] MEDS ORDERED: propofoL 200 MG/20 ML VIAL As Ordered ONE (09:31)
[2020-12-06] MEDS ORDERED: LIDOCAINE 2% 100MG/5ML SDV (FOR ANES.) As Ordered ONE (09:31)
[2020-12-06 09:40] VITALS: BP 110/56
== END 2020-12-06 10:00 | disposition home or self-care (01) ==
LOC: M OPP 07:57
PROVIDERS: ATTEND Internal Medicine Gastroenterology
DX: D50.9 Iron deficiency anemia, unspecified (principal); R19.4 Change in bowel habit; K64.0 First degree hemorrhoids; K57.30 Diverticulosis of large intestine without perforation or abscess without bleeding

== ENCOUNTER → 2021-01-31 | Outpatient (CLI) | payer MEDICARE ==
[~2021-01-31] MED LIST changes: -NS 1,000 ML IV ONE
== END ==
LOC: M LAB 08:13
PROVIDERS: ATTEND Urology
DX: C61 Malignant neoplasm of prostate (principal)

== ENCOUNTER → 2021-05-23 | Outpatient (CLI) | payer MEDICARE | LOC: M LAB 08:28 | PROVIDERS: ATTEND Urology | DX: C61 Malignant neoplasm of prostate (principal) ==

== ENCOUNTER 2021-08-06 16:20 | Emergency (ER) | payer MEDICARE ==
[~2021-08-06] VITALS: Ht 175.3 cm; Wt 77.3 kg
[2021-08-06 17:21] LABS: BASO % 0.4 % (0.0-1.0); EOS # 0.1 10^3/uL (0.0-0.5); EOS % 0.6 % (0.0-3.0); HEMATOCRIT 32.5 % (42.0-52.0); HEMOGLOBIN 11.1 g/dl (13.5-17.5); LYMPH # 1.1 10^3/uL (1.5-5.0); LYMPH % 12.8 % (24.0-44.0); MEAN CORPUSCULAR HEMOGLOBIN 32.7 pg (27.0-33.0); MEAN CORPUSCULAR HGB CONC 34.2 g/dl (32.0-36.5); MEAN CORPUSCULAR VOLUME 95.9 fl (80.0-96.0); MONO # 0.5 10^3/uL (0.0-0.8); MONO % 6.3 % (2.0-8.0); NEUTROPHILS # 6.5 10^3/uL (1.5-8.5); NEUTROPHILS % 79.4 % (36.0-66.0); PLATELET COUNT, AUTOMATED 133 10^3/uL (150-450); RED BLOOD COUNT 3.39 10^6/uL (4.30-6.10); WHITE BLOOD COUNT 8.2 10^3/uL (4.0-10.0)
[2021-08-06 17:38] LABS: ALBUMIN 3.6 GM/DL (3.2-5.2); BILIRUBIN,DIRECT 0.7 MG/DL (0.0-0.2); BILIRUBIN,TOTAL 1.2 MG/DL (0.2-1.0); TOTAL PROTEIN 6.4 GM/DL (6.4-8.2)
[2021-08-06] MEDS ORDERED: ISOVUE-370 76% 100ML VIAL As Ordered ONE (17:47)
--- NOTE | 2021-08-06 18:56 | REPVR ---
PROCEDURE INFORMATION: Exam: CT Abdomen And Pelvis With Contrast Exam date and time: 08/06/2021 5:51 PM Age: 80 years old Clinical indication: Abdominal pain; Additional info: Abd pain TECHNIQUE: Imaging protocol: Computed tomography of the abdomen and pelvis with contrast. Radiation optimization: All CT scans at this facility use at least one of these dose optimization techniques: automated exposure control; mA and/or kV adjustment per patient size (includes targeted exams where dose is matched to clinical indication); or iterative reconstruction. Contrast material: ISOVUE 370; Contrast volume: 100 ml; Contrast route: INTRAVENOUS (IV); COMPARISON: CT ABD PELVIS W/O FOL BY WIT 07/09/2017 9:58 AM FINDINGS: Lungs: No suspicious mass or airspace process in the visualized lung bases. Liver: Liver appears normal with no focal abnormality. Gallbladder and bile ducts: Gallbladder is unremarkable aside from a punctate wall calcification seen previously. Pancreas: Pancreas appears normal. No focal mass or peripancreatic inflammation. Spleen: Spleen appears homogeneous without focal mass. Adrenal glands: Adrenal glands are normal in appearance and unchanged. Kidneys and ureters: Kidneys are unremarkable aside from an exophytic right renal cyst measuring 2 cm. Stomach and bowel: No evidence of small bowel obstruction. Terminal ileum has normal appearance. Diverticular changes are present within the colon without inflammation. Appendix: Normal caliber appendix is identified, with no adjacent inflammation. Intraperitoneal space: No pneumoperitoneum. Vasculature: Atherosclerotic change present in the aorta, without aneurysm. Mild atherosclerotic narrowing of the SMA distal to its origin, milder than 50% luminal caliber. Main portal and splenic veins enhance normally. Lymph nodes: No enlarged lymph nodes. Urinary bladder: Urinary bladder appears normal. Reproductive: No overt enlargement of the prostate gland. Bones/joints: Bony structures are normal except for lumbar spine degenerative disc changes. Soft tissues: Unremarkable. IMPRESSION: 1. No acute or concerning focal abdominal or pelvic process. 2. Mild colonic diverticular change without active inflammation. Electronically signed by: Derek Steiner On 08/06/2021 18:56:12 PM
[2021-08-06 19:25] VITALS: BP 151/69
== END 2021-08-06 19:26 | disposition home or self-care (01) ==
LOC: M ED 16:20
DX: R10.9 Unspecified abdominal pain (principal); I48.91 Unspecified atrial fibrillation; I10 Essential (primary) hypertension; Z95.0 Presence of cardiac pacemaker; Z85.46 Personal history of malignant neoplasm of prostate; Z79.01 Long term (current) use of anticoagulants; Z79.899 Other long term (current) drug therapy; Z88.6 Allergy status to analgesic agent; Z91.018 Allergy to other foods
CPT/HCPCS: 74177; 80047; 80076; 83690; 85025; 99284; Q9967

== ENCOUNTER → 2021-08-22 | Outpatient (CLI) | payer MEDICARE | LOC: M LAB 09:50 | PROVIDERS: ATTEND Urology | DX: C61 Malignant neoplasm of prostate (principal) ==

== ENCOUNTER → 2021-11-30 | Outpatient (CLI) | payer MEDICARE ==
[~2021-11-30] MED LIST changes: -BENA40TA5 PO; +BENA40TA84 PO
== END ==
LOC: M LAB 09:18
PROVIDERS: ATTEND Urology
DX: C61 Malignant neoplasm of prostate (principal)

== ENCOUNTER → 2022-01-23 | Outpatient (REF) | payer MEDICARE ==
[~2022-01-23] MED LIST changes: +ACET1TAB55 PO; +CIPR-249 PO; -D31000TA2 PO; +MEMA1TAB3 PO; +METR-265 PO; +OMEP-173 PO; -OMEP-218 PO; +VITA100093 PO
== END ==
LOC: M SFHCDERM 15:46
PROVIDERS: ATTEND Nurse Practitioner Family
DX: L82.1 Other seborrheic keratosis (principal)

== ENCOUNTER 2022-02-01 15:29 | Inpatient (IN) | payer MEDICARE ==
[~2022-02-01] VITALS: Ht 175.3 cm; Wt 80.0 kg
[~2022-02-01 15:29] MED LIST changes: -ACET1TAB55 PO; -CIPR-249 PO; -MEMA1TAB3 PO; -METR-265 PO
[2022-02-01 18:00] LABS: BASO % 0.1 % (0.0-1.0); HEMATOCRIT 35.1 % (42.0-52.0); HEMOGLOBIN 11.8 g/dl (13.5-17.5); LYMPH # 0.2 10^3/uL (1.5-5.0); LYMPH % 1.3 % (24.0-44.0); MEAN CORPUSCULAR HEMOGLOBIN 31.9 pg (27.0-33.0); MEAN CORPUSCULAR HGB CONC 33.6 g/dl (32.0-36.5); MEAN CORPUSCULAR VOLUME 94.9 fl (80.0-96.0); MONO # 0.4 10^3/uL (0.0-0.8); MONO % 2.7 % (2.0-8.0); NEUTROPHILS # 12.6 10^3/uL (1.5-8.5); NEUTROPHILS % 95.6 % (36.0-66.0); PLATELET COUNT, AUTOMATED 164 10^3/uL (150-450); WHITE BLOOD COUNT 13.2 10^3/uL (4.0-10.0)
[2022-02-01 18:19] LABS: ALBUMIN 4.1 GM/DL (3.2-5.2); ALT/SGPT 42 U/L (12-78); BILIRUBIN,TOTAL 2.7 MG/DL (0.2-1.0); LIPASE 250 U/L (73-393); TOTAL PROTEIN 6.7 GM/DL (6.4-8.2)
[2022-02-01] MEDS ORDERED: NS 1,000 ML IV ONE (21:30)
[2022-02-01] MEDS ORDERED: NYSTATIN 100,000 UNITS/GM TOPICAL PWD 15 GM TOP STA (21:30)
[2022-02-01] MEDS ORDERED: ACETAMINOPHEN 325 MG TAB PO ONE (21:30)
[2022-02-01] MEDS ORDERED: ISOVUE-370 76% 100ML VIAL As Ordered ONE (21:42)
[2022-02-01 23:55] LABS: C REACTIVE PROTEIN QUANTITATIV < 0.30 MG/DL (0.00-0.30)
[2022-02-02] VITALS (9 sets, daily range): BP systolic 101–152; BP diastolic 53–97
[2022-02-02 00:39] LABS: ERYTHROCYTE SEDIMENTATION RATE 20 mm/hr (0-20)
[2022-02-02] MEDS: NS 1,000 ML IV SCH ×3 (00:50→20:06)
[2022-02-02] MEDS ORDERED: HYDROMORPHONE HCL 0.5 MG/ 0.5 ML SYRINGE (J1170 PER 1) IV PRN (00:50)
[2022-02-02] MEDS ORDERED: DEXTROSE 50% 50 ML SYRINGE IV PRN (01:00)
[2022-02-02] MEDS ORDERED: GLUCOSE 4GM CHEW TABLET PO PRN (01:00)
[2022-02-02] MEDS ORDERED: GLUCAGON INJ 1MG VIAL SC PRN (01:00)
[2022-02-02] MEDS ORDERED: SINEMET 25-100 MG TAB PO ONE (01:00)
[2022-02-02] MEDS ORDERED: rOPINIRole 0.25 MG TAB(REQUIP) PO ONE (01:00)
[2022-02-02 01:17] LABS: RSV AMPLIFICATION NEGATIVE (NEGATIVE)
[2022-02-02] MEDS ORDERED: ACETAMINOPHEN TAB 650MG DOSE (2X325MG) PO PRN (04:25)
[2022-02-02 04:48] LABS: BASO % 0.1 % (0.0-1.0); HEMATOCRIT 32.4 % (42.0-52.0); HEMOGLOBIN 11.2 g/dl (13.5-17.5); LYMPH # 0.1 10^3/uL (1.5-5.0); LYMPH % 1.2 % (24.0-44.0); MEAN CORPUSCULAR HGB CONC 34.6 g/dl (32.0-36.5); MEAN CORPUSCULAR VOLUME 92.6 fl (80.0-96.0); MONO # 0.1 10^3/uL (0.0-0.8); MONO % 1.1 % (2.0-8.0); NEUTROPHILS # 9.2 10^3/uL (1.5-8.5); NEUTROPHILS % 96.8 % (36.0-66.0); PLATELET COUNT, AUTOMATED 129 10^3/uL (150-450); WHITE BLOOD COUNT 9.5 10^3/uL (4.0-10.0)
[2022-02-02 05:15] LABS: ALBUMIN 3.3 GM/DL (3.2-5.2); BILIRUBIN,TOTAL 4.8 MG/DL (0.2-1.0); CREATININE FOR GFR 1.25 MG/DL (0.70-1.30); GLOMERULAR FILTRATION RATE 59.2 (>35); TOTAL PROTEIN 6.1 GM/DL (6.4-8.2)
[2022-02-02] MEDS: HumaLOG INSULIN (NovoLOG) PER UNIT SC SCH ×5 (05:22→20:07)
[2022-02-02 05:31] LABS: HEMOGLOBIN A1c 5.4 %
[2022-02-02] MEDS ORDERED: MEMA1TAB3 PO (06:25)
[2022-02-02] MEDS ORDERED: HOME MED LIST COMPLETE! XX SCH (06:30)
[2022-02-02] MEDS: PIPERACILLIN/TAZOBACTAM SOD 3.375 GM in D5W MINI-BAG PLUS 50 ML IV SCH ×3 (09:33→20:07)
[2022-02-02] MEDS ORDERED: ISOVUE-300 61% 50ML VIAL As Ordered ONE (15:20)
[2022-02-02] MEDS ORDERED: fentaNYL 100 MCG/2 ML INJECTION As Ordered ONE (16:30)
[2022-02-02] MEDS ORDERED: MIDAZOLAM INJ 2MG/2ML VIAL (J2250 PER 1MG) As Ordered ONE (16:30)
[2022-02-02] MEDS ORDERED: propofoL 200 MG/20 ML VIAL As Ordered ONE (16:30)
[2022-02-02] MEDS ORDERED: ROCURONIUM BROMIDE 50 MG/5 ML VIAL As Ordered ONE (16:31)
[2022-02-02] MEDS ORDERED: LIDOCAINE 2% 100MG/5ML SDV (FOR ANES.) As Ordered ONE (16:31)
[2022-02-02] MEDS ORDERED: METOCLOPRAMIDE INJ 10MG/2ML VIAL (J2765 PER 1) As Ordered ONE (17:15)
[2022-02-02] MEDS ORDERED: ONDANSETRON 4MG/2ML VIAL As Ordered ONE (17:15)
[2022-02-02] MEDS ORDERED: dexameTHASONE 4 MG/ML 1ML VIAL (J1100 PER 1MG) As Ordered ONE (17:15)
[2022-02-02] MEDS ORDERED: SUGAMMADEX SODIUM 500 MG/5 ML VIAL (BRIDION) As Ordered ONE (17:18)
[2022-02-02] MEDS ORDERED: ePHEDrine SULFATE 25 MG/5 ML(5MG/ML) SYRINGE As Ordered ONE ×2 (17:18→17:26)
[2022-02-02] MEDS ORDERED: PHENYLephrine 500MCG 5ML (100MCG/ML) SYRINGE As Ordered ONE (17:26)
[2022-02-02] MEDS ORDERED: MORPHINE 4 MG/ML 1ML VIAL/SYRINGE (J2270) IV PRN (17:35)
[2022-02-02] MEDS ORDERED: LR 1,000 ML IV SCH (18:15)
[2022-02-02] MEDS ORDERED: fentaNYL 100 MCG/2 ML INJECTION IV PRN (18:15)
[2022-02-02] MEDS ORDERED: oxyCODONE 5MG TAB PO PRN (18:15)
[2022-02-02] MEDS ORDERED: ONDANSETRON 4MG/2ML VIAL IV PRN (18:15)
[2022-02-02 20:09] LABS: HEMATOCRIT 36.1 % (42.0-52.0); HEMOGLOBIN 11.9 g/dl (13.5-17.5); MEAN CORPUSCULAR HEMOGLOBIN 31.5 pg (27.0-33.0); MEAN CORPUSCULAR VOLUME 95.5 fl (80.0-96.0); PLATELET COUNT, AUTOMATED 115 10^3/uL (150-450); RED BLOOD COUNT 3.78 10^6/uL (4.30-6.10); WHITE BLOOD COUNT 14.5 10^3/uL (4.0-10.0)
[2022-02-02 20:41] LABS: LYMPHOCYTES 4 % (16-44); MONOCYTES 1 % (0-5); NEUTROPHILS 90 % (28-66); PLATELET ESTIMATE DECREASED (NORMAL)
[2022-02-02 20:42] LABS: TOXIC VACUOLATION 1+
[2022-02-03] VITALS: BP 111/59
[2022-02-03] MEDS: PIPERACILLIN/TAZOBACTAM SOD 3.375 GM in D5W MINI-BAG PLUS 50 ML IV SCH ×4 (02:37→20:28)
[2022-02-03 04:00] VITALS: BP 119/56
[2022-02-03] MEDS: HumaLOG INSULIN (NovoLOG) PER UNIT SC SCH ×2 (06:00→13:12)
[2022-02-03 06:06] LABS: HEMATOCRIT 30.1 % (42.0-52.0); HEMOGLOBIN 10.1 g/dl (13.5-17.5); MEAN CORPUSCULAR HEMOGLOBIN 31.5 pg (27.0-33.0); MEAN CORPUSCULAR HGB CONC 33.6 g/dl (32.0-36.5); MEAN CORPUSCULAR VOLUME 93.8 fl (80.0-96.0); RED BLOOD COUNT 3.21 10^6/uL (4.30-6.10); WHITE BLOOD COUNT 12.1 10^3/uL (4.0-10.0)
[2022-02-03 06:34] LABS: ALBUMIN 2.7 GM/DL (3.2-5.2); BILIRUBIN,TOTAL 4.9 MG/DL (0.2-1.0); CREATININE FOR GFR 1.44 MG/DL (0.70-1.30); GLOMERULAR FILTRATION RATE 50.2 (>35); POTASSIUM SERUM 3.9 MEQ/L (3.5-5.1); TOTAL PROTEIN 4.7 GM/DL (6.4-8.2)
[2022-02-03] MEDS: NS 1,000 ML IV SCH (06:41)
[2022-02-03 06:58] LABS: PLATELET COUNT, AUTOMATED 91 10^3/uL (150-450)
[2022-02-03 08:15] VITALS: BP 108/70
[2022-02-03] MEDS: SINEMET 25-100 MG TAB PO SCH ×3 (09:10→20:27)
[2022-02-03] MEDS: OMEPRAZOLE 20MG CAP PO SCH ×2 (09:10→20:27)
[2022-02-03] MEDS: MEMANTINE 5MG TABLET (NAMENDA) PO SCH ×2 (09:11→20:27)
[2022-02-03] MEDS: rOPINIRole 0.25 MG TAB(REQUIP) PO SCH ×3 (09:11→20:27)
[2022-02-03] MEDS: VITAMIN D 1,000 INTERNATIONAL UNITS TABLET PO SCH (09:11)
[2022-02-03] MEDS: POTASSIUM CHLORIDE 10MEQ SR TABLET PO SCH ×2 (09:11→20:27)
[2022-02-03 16:16] VITALS: BP 103/59
[2022-02-03 20:10] VITALS: BP 131/63
[2022-02-03] MEDS ORDERED: PRAVASTATIN 20 MG TAB PO SCH (21:00)
[2022-02-04 04:19] VITALS: BP 120/67
[2022-02-04] MEDS: PIPERACILLIN/TAZOBACTAM SOD 3.375 GM in D5W MINI-BAG PLUS 50 ML IV SCH ×2 (04:28→08:36)
[2022-02-04 06:48] LABS: HEMATOCRIT 32.3 % (42.0-52.0); HEMOGLOBIN 10.9 g/dl (13.5-17.5); MEAN CORPUSCULAR HEMOGLOBIN 31.3 pg (27.0-33.0); MEAN CORPUSCULAR HGB CONC 33.7 g/dl (32.0-36.5); MEAN CORPUSCULAR VOLUME 92.8 fl (80.0-96.0); PLATELET COUNT, AUTOMATED 93 10^3/uL (150-450); RED BLOOD COUNT 3.48 10^6/uL (4.30-6.10); WHITE BLOOD COUNT 11.3 10^3/uL (4.0-10.0)
[2022-02-04 07:11] LABS: ALBUMIN 2.6 GM/DL (3.2-5.2); ALT/SGPT 33 U/L (12-78); BILIRUBIN,TOTAL 2.6 MG/DL (0.2-1.0); BLOOD UREA NITROGEN 29 MG/DL (7-18); CALCIUM LEVEL 8.3 MG/DL (8.8-10.2); CARBON DIOXIDE LEVEL 25 MEQ/L (21-32); CHLORIDE LEVEL 107 MEQ/L (98-107); CREATININE FOR GFR 1.15 MG/DL (0.70-1.30); GLOMERULAR FILTRATION RATE > 60.0 (>35); GLUCOSE, FASTING 99 MG/DL (70-100); POTASSIUM SERUM 3.7 MEQ/L (3.5-5.1); SODIUM LEVEL 139 MEQ/L (136-145); TOTAL PROTEIN 5.8 GM/DL (6.4-8.2)
[2022-02-04 08:00] VITALS: BP 128/61
[2022-02-04] MEDS: MEMANTINE 5MG TABLET (NAMENDA) PO SCH (08:35)
[2022-02-04] MEDS: SINEMET 25-100 MG TAB PO SCH (08:35)
[2022-02-04] MEDS: rOPINIRole 0.25 MG TAB(REQUIP) PO SCH (08:35)
[2022-02-04] MEDS: VITAMIN D 1,000 INTERNATIONAL UNITS TABLET PO SCH (08:35)
[2022-02-04] MEDS: POTASSIUM CHLORIDE 10MEQ SR TABLET PO SCH (08:36)
[2022-02-04] MEDS: OMEPRAZOLE 20MG CAP PO SCH (08:36)
[2022-02-04] MEDS ORDERED: CIPR-249 PO (09:49)
[2022-02-04] MEDS ORDERED: METR-265 PO (09:49)
[2022-02-04] MEDS ORDERED: ACET1TAB55 PO (09:49)
[2022-02-04 12:00] VITALS: BP 112/58
[2022-02-04] MEDS ORDERED: metroNIDAZOLE (FLAGYL) 500MG TABLET PO SCH (14:00)
[2022-02-04] MEDS ORDERED: CIPROFLOXACIN 500MG TABLET PO SCH (18:00)
== END 2022-02-04 14:32 | disposition home or self-care (01) | DRG 409 ==
LOC: M ED 15:29 → M ED INP 02-02 00:46 → ENRESERV 02-02 03:16 → M PCU 02-02 03:22
PROVIDERS: ADMIT Internal Medicine; ATTEND Internal Medicine
PROC: 0FC Hepatobiliary System and Pancreas, Extirpation (ICD-10-PCS; 2022-02-02)
PROC: 0F798DZ Dilation of Common Bile Duct with Intraluminal Device, Via Natural or Artificial Opening Endoscopic (ICD-10-PCS; 2022-02-02)
PROC: 0F7 Hepatobiliary System and Pancreas, Dilation (ICD-10-PCS; principal; 2022-02-02 16:00)
DX: K80.50 Calculus of bile duct without cholangitis or cholecystitis without obstruction (principal); R78.81 Bacteremia; G31.83 Neurocognitive disorder with Lewy bodies; F02.80 Dementia in other diseases classified elsewhere, unspecified severity, without behavioral disturbance, psychotic disturbance, mood disturbance, and anxiety; I48.91 Unspecified atrial fibrillation; R73.9 Hyperglycemia, unspecified; D64.9 Anemia, unspecified; Z20.822 Contact with and (suspected) exposure to COVID-19; Z95.0 Presence of cardiac pacemaker; Z79.899 Other long term (current) drug therapy; Z79.01 Long term (current) use of anticoagulants

== ENCOUNTER 2022-02-10 16:10 | Inpatient (IN) | payer MEDICARE ==
[~2022-02-10] VITALS: Ht 175.3 cm; Wt 85.5 kg
[~2022-02-10 16:10] MED LIST changes: +ACET1TAB55 PO; +CIPR-249 PO; +MEMA1TAB3 PO; +METR-265 PO
[2022-02-10] MEDS ORDERED: NS 500 ML IV ONE ×2 (16:25→16:55)
[2022-02-10 16:58] LABS: HEMATOCRIT 29.3 % (42.0-52.0); HEMOGLOBIN 9.8 g/dl (13.5-17.5); MEAN CORPUSCULAR HEMOGLOBIN 31.5 pg (27.0-33.0); MEAN CORPUSCULAR HGB CONC 33.4 g/dl (32.0-36.5); MEAN CORPUSCULAR VOLUME 94.2 fl (80.0-96.0); PLATELET COUNT, AUTOMATED 201 10^3/uL (150-450); RED BLOOD COUNT 3.11 10^6/uL (4.30-6.10)
[2022-02-10 17:04] LABS: WHITE BLOOD COUNT 44.5 10^3/uL (4.0-10.0)
[2022-02-10] MEDS ORDERED: ISOVUE-370 76% 100ML VIAL As Ordered ONE (17:09)
[2022-02-10 17:11] LABS: INR 3.59; PROTHROMBIN TIME 36.1 SECONDS (12.7-14.5)
[2022-02-10 17:12] LABS: PARTIAL THROMBOPLASTIN TIME 43.4 SECONDS (25.9-37.0)
[2022-02-10] MEDS ORDERED: NS 1,320 ML in IV 1 EA IV ONE (17:15)
[2022-02-10] MEDS ORDERED: LevoFLOXacin IV 750 MG in IV 1 EA IV ONE (17:15)
[2022-02-10 17:28] LABS: LYMPHOCYTES 3 % (16-44); METAMYELOCYTES 1 % (0-0); MONOCYTES 1 % (0-5); NEUTROPHILS 82 % (28-66)
[2022-02-10 17:29] LABS: CK-MB VALUE MASS < 1.0 NG/ML (<3.6); CPK CREATINE PHOSPHOKINASE 29 U/L (39-308); MB/CK RELATIVE INDEX 3.45 (< OR =4)
[2022-02-10 17:30] LABS: PLATELET ESTIMATE NORMAL (NORMAL); TOXIC GRANULATION 1+; TOXIC VACUOLATION 1+
[2022-02-10 17:31] LABS: ANISOCYTOSIS 1+; SCHISTOCYTES 1+
[2022-02-10 17:37] LABS: ALBUMIN 2.7 GM/DL (3.2-5.2); BILIRUBIN,DIRECT 0.6 MG/DL (0.0-0.2); BILIRUBIN,TOTAL 0.9 MG/DL (0.2-1.0); CALCIUM LEVEL 8.1 MG/DL (8.8-10.2); CREATININE FOR GFR 1.66 MG/DL (0.70-1.30); FREE T4 1.78 NG/DL (0.76-1.46); GLOMERULAR FILTRATION RATE 42.6 (>35); POTASSIUM SERUM 4.2 MEQ/L (3.5-5.1); THYROID STIMULATING HORMONE 1.44 uIU/ML (0.358-3.740)
[2022-02-10] MEDS ORDERED: LIDOCAINE 2% 5ML JELLY UROJET TOP ONE (17:45)
[2022-02-10] MEDS ORDERED: VANCOMYCIN HCL 1,000 MG, VIAL MATE ADAPTER 1 EACH in NS 250 ML IV SCH (17:55)
[2022-02-10] MEDS ORDERED: MEROPENEM INJ 2 GM in NS 100 ML IV SCH (17:55)
[2022-02-10] MEDS ORDERED: CIPR-249 PO (17:57)
[2022-02-10] MEDS ORDERED: METR-265 PO (17:57)
[2022-02-10] MEDS ORDERED: HOME MED LIST COMPLETE! XX SCH (18:00)
[2022-02-10 18:37] LABS: CK-MB VALUE MASS < 1.0 NG/ML (<3.6); CPK CREATINE PHOSPHOKINASE 27 U/L (39-308)
[2022-02-10 18:47] LABS: RSV AMPLIFICATION NEGATIVE (NEGATIVE)
[2022-02-10] MEDS ORDERED: NS 1,000 ML IV ONE (19:10)
[2022-02-10] MEDS: NS 1,000 ML IV SCH ×2 (19:51→23:27)
[2022-02-10] MEDS: MEROPENEM INJ 1 GM in IV 1 EA IV SCH ×2 (20:21→21:08)
[2022-02-10] MEDS ORDERED: VANCOMYCIN HCL 750 MG, VIAL MATE ADAPTER 1 EACH in NS 250 ML IV ONE ×2 (22:00→23:00)
[2022-02-10] MEDS: POTASSIUM CHLORIDE 10MEQ SR TABLET PO SCH (22:50)
[2022-02-10] MEDS: PRAVASTATIN 20 MG TAB PO SCH (22:50)
[2022-02-10] MEDS: OMEPRAZOLE 20MG CAP PO SCH (22:50)
[2022-02-10 23:10] VITALS: BP 115/55
[2022-02-10] MEDS: SINEMET 25-100 MG TAB PO SCH (23:27)
[2022-02-11] MEDS: rOPINIRole 0.25 MG TAB(REQUIP) PO SCH ×4 (01:00→20:26)
[2022-02-11] MEDS: MEMANTINE 5MG TABLET (NAMENDA) PO SCH ×3 (01:08→20:26)
[2022-02-11] MEDS: NS 1,000 ML IV SCH ×2 (01:11→10:54)
[2022-02-11 03:33] VITALS: BP 93/52
[2022-02-11 04:11] LABS: HEMATOCRIT 24.7 % (42.0-52.0); HEMOGLOBIN 8.2 g/dl (13.5-17.5); MEAN CORPUSCULAR HEMOGLOBIN 31.1 pg (27.0-33.0); MEAN CORPUSCULAR HGB CONC 33.2 g/dl (32.0-36.5); MEAN CORPUSCULAR VOLUME 93.6 fl (80.0-96.0); PLATELET COUNT, AUTOMATED 172 10^3/uL (150-450); RED BLOOD COUNT 2.64 10^6/uL (4.30-6.10)
[2022-02-11 04:12] LABS: WHITE BLOOD COUNT 33.3 10^3/uL (4.0-10.0)
[2022-02-11 04:23] LABS: INR 3.11; PROTHROMBIN TIME 32.3 SECONDS (12.7-14.5)
[2022-02-11 04:24] LABS: PARTIAL THROMBOPLASTIN TIME 46.5 SECONDS (25.9-37.0)
[2022-02-11 04:38] LABS: ALT/SGPT 13 U/L (12-78); BILIRUBIN,TOTAL 0.7 MG/DL (0.2-1.0); BLOOD UREA NITROGEN 20 MG/DL (7-18); CALCIUM LEVEL 6.8 MG/DL (8.8-10.2); CARBON DIOXIDE LEVEL 23 MEQ/L (21-32); CHLORIDE LEVEL 110 MEQ/L (98-107); CREATININE FOR GFR 1.12 MG/DL (0.70-1.30); GLOMERULAR FILTRATION RATE > 60.0 (>35); GLUCOSE, FASTING 88 MG/DL (70-100); POTASSIUM SERUM 3.8 MEQ/L (3.5-5.1); SODIUM LEVEL 138 MEQ/L (136-145)
[2022-02-11] MEDS ORDERED: NS 500 ML IV ONE (07:20)
[2022-02-11 08:33] VITALS: BP 135/59
[2022-02-11] MEDS: VITAMIN D 1,000 INTERNATIONAL UNITS TABLET PO SCH (08:49)
[2022-02-11] MEDS: OMEPRAZOLE 20MG CAP PO SCH ×2 (08:49→20:26)
[2022-02-11] MEDS: LACTOBACILLUS ACIDOPHILUS CAP (BACID) PO SCH ×2 (08:49→19:05)
[2022-02-11] MEDS: SINEMET 25-100 MG TAB PO SCH ×3 (08:49→20:26)
[2022-02-11] MEDS: POTASSIUM CHLORIDE 10MEQ SR TABLET PO SCH ×2 (08:49→20:26)
[2022-02-11] MEDS: MEROPENEM INJ 1 GM in IV 1 EA IV SCH ×4 (08:50→20:31)
[2022-02-11 11:26] VITALS: BP 122/63
[2022-02-11] MEDS: VANCOMYCIN HCL 1,000 MG, VIAL MATE ADAPTER 1 EACH in NS 250 ML IV SCH (15:07)
[2022-02-11 16:28] VITALS: BP 117/56
[2022-02-11] MEDS: PRAVASTATIN 20 MG TAB PO SCH (20:26)
[2022-02-12 03:17] VITALS: BP 130/71
[2022-02-12 05:29] LABS: HEMATOCRIT 25.9 % (42.0-52.0); HEMOGLOBIN 8.8 g/dl (13.5-17.5); MEAN CORPUSCULAR HEMOGLOBIN 31.7 pg (27.0-33.0); MEAN CORPUSCULAR VOLUME 93.2 fl (80.0-96.0); PLATELET COUNT, AUTOMATED 204 10^3/uL (150-450); RED BLOOD COUNT 2.78 10^6/uL (4.30-6.10); WHITE BLOOD COUNT 19.8 10^3/uL (4.0-10.0)
[2022-02-12 05:43] LABS: INR 1.4; PROTHROMBIN TIME 17.6 SECONDS (12.7-14.5)
[2022-02-12 05:44] LABS: PARTIAL THROMBOPLASTIN TIME 35.4 SECONDS (25.9-37.0)
[2022-02-12 05:52] LABS: ALBUMIN 2.1 GM/DL (3.2-5.2); ALT/SGPT 12 U/L (12-78); BILIRUBIN,TOTAL 0.6 MG/DL (0.2-1.0); BLOOD UREA NITROGEN 19 MG/DL (7-18); CALCIUM LEVEL 7.2 MG/DL (8.8-10.2); CARBON DIOXIDE LEVEL 22 MEQ/L (21-32); CHLORIDE LEVEL 112 MEQ/L (98-107); CREATININE FOR GFR 0.91 MG/DL (0.70-1.30); GLOMERULAR FILTRATION RATE > 60.0 (>35); GLUCOSE, FASTING 85 MG/DL (70-100); POTASSIUM SERUM 3.8 MEQ/L (3.5-5.1); SODIUM LEVEL 140 MEQ/L (136-145); TOTAL PROTEIN 4.2 GM/DL (6.4-8.2)
[2022-02-12 07:37] VITALS: BP 144/76
[2022-02-12] MEDS: FUROSEMIDE 40 MG TAB PO SCH (08:28)
[2022-02-12] MEDS: rOPINIRole 0.25 MG TAB(REQUIP) PO SCH ×3 (08:28→20:12)
[2022-02-12] MEDS: SINEMET 25-100 MG TAB PO SCH ×3 (08:28→20:11)
[2022-02-12] MEDS: OMEPRAZOLE 20MG CAP PO SCH ×2 (08:29→20:11)
[2022-02-12] MEDS: MEMANTINE 5MG TABLET (NAMENDA) PO SCH ×2 (08:29→20:12)
[2022-02-12] MEDS: LACTOBACILLUS ACIDOPHILUS CAP (BACID) PO SCH ×2 (08:29→18:36)
[2022-02-12] MEDS: MEROPENEM INJ 1 GM in IV 1 EA IV SCH ×4 (08:29→20:11)
[2022-02-12] MEDS: POTASSIUM CHLORIDE 10MEQ SR TABLET PO SCH ×2 (08:29→20:11)
[2022-02-12] MEDS: VITAMIN D 1,000 INTERNATIONAL UNITS TABLET PO SCH (08:29)
[2022-02-12 11:52] VITALS: BP 125/71
[2022-02-12] MEDS: VANCOMYCIN HCL 1,000 MG, VIAL MATE ADAPTER 1 EACH in NS 250 ML IV SCH (15:59)
[2022-02-12] MEDS ORDERED: VANCOMYCIN HCL 500 MG in D5W MINI-BAG PLUS 100 ML IV ONE (17:00)
[2022-02-12] MEDS: RIVAROXABAN 20 MG TAB (XARELTO) PO SCH (18:36)
[2022-02-12 19:11] VITALS: BP 114/63
[2022-02-12] MEDS: PRAVASTATIN 20 MG TAB PO SCH (20:11)
[2022-02-13 03:15] VITALS: BP 137/63
[2022-02-13 05:55] LABS: HEMATOCRIT 26.4 % (42.0-52.0); MEAN CORPUSCULAR HEMOGLOBIN 31.5 pg (27.0-33.0); MEAN CORPUSCULAR HGB CONC 34.1 g/dl (32.0-36.5); MEAN CORPUSCULAR VOLUME 92.3 fl (80.0-96.0); PLATELET COUNT, AUTOMATED 229 10^3/uL (150-450); RED BLOOD COUNT 2.86 10^6/uL (4.30-6.10); WHITE BLOOD COUNT 13.9 10^3/uL (4.0-10.0)
[2022-02-13 06:07] LABS: INR 2.36; PROTHROMBIN TIME 26.2 SECONDS (12.7-14.5)
[2022-02-13 06:08] LABS: PARTIAL THROMBOPLASTIN TIME 42.8 SECONDS (25.9-37.0)
[2022-02-13 06:24] LABS: ALBUMIN 2.2 GM/DL (3.2-5.2); ALT/SGPT 17 U/L (12-78); BILIRUBIN,TOTAL 0.8 MG/DL (0.2-1.0); BLOOD UREA NITROGEN 14 MG/DL (7-18); CALCIUM LEVEL 7.6 MG/DL (8.8-10.2); CARBON DIOXIDE LEVEL 24 MEQ/L (21-32); CHLORIDE LEVEL 112 MEQ/L (98-107); GLOMERULAR FILTRATION RATE > 60.0 (>35); GLUCOSE, FASTING 89 MG/DL (70-100); POTASSIUM SERUM 3.8 MEQ/L (3.5-5.1); SODIUM LEVEL 141 MEQ/L (136-145); TOTAL PROTEIN 4.4 GM/DL (6.4-8.2)
[2022-02-13 08:17] VITALS: BP 137/64
[2022-02-13] MEDS: MEROPENEM INJ 1 GM in IV 1 EA IV SCH ×4 (08:46→22:04)
[2022-02-13] MEDS: MEMANTINE 5MG TABLET (NAMENDA) PO SCH ×2 (08:47→21:00)
[2022-02-13] MEDS: rOPINIRole 0.25 MG TAB(REQUIP) PO SCH ×3 (08:47→21:00)
[2022-02-13] MEDS: OMEPRAZOLE 20MG CAP PO SCH ×2 (08:47→21:00)
[2022-02-13] MEDS: FUROSEMIDE 40 MG TAB PO SCH (08:47)
[2022-02-13] MEDS: LACTOBACILLUS ACIDOPHILUS CAP (BACID) PO SCH ×2 (08:47→17:07)
[2022-02-13] MEDS: VITAMIN D 1,000 INTERNATIONAL UNITS TABLET PO SCH (08:47)
[2022-02-13] MEDS: POTASSIUM CHLORIDE 10MEQ SR TABLET PO SCH ×2 (08:47→21:00)
[2022-02-13] MEDS: SINEMET 25-100 MG TAB PO SCH ×3 (08:48→21:00)
[2022-02-13 12:27] VITALS: BP 136/62
[2022-02-13 14:36] VITALS: BP 136/62
[2022-02-13] MEDS: RIVAROXABAN 20 MG TAB (XARELTO) PO SCH (17:07)
[2022-02-13 20:00] VITALS: BP 131/63
[2022-02-13] MEDS: PRAVASTATIN 20 MG TAB PO SCH (21:01)
[2022-02-14 03:55] VITALS: BP 182/99
[2022-02-14 04:02] VITALS: BP 151/73
[2022-02-14 07:50] VITALS: BP 145/94
[2022-02-14 08:22] LABS: HEMATOCRIT 27.6 % (42.0-52.0); HEMOGLOBIN 9.3 g/dl (13.5-17.5); MEAN CORPUSCULAR HEMOGLOBIN 31.6 pg (27.0-33.0); MEAN CORPUSCULAR HGB CONC 33.7 g/dl (32.0-36.5); MEAN CORPUSCULAR VOLUME 93.9 fl (80.0-96.0); PLATELET COUNT, AUTOMATED 257 10^3/uL (150-450); RED BLOOD COUNT 2.94 10^6/uL (4.30-6.10); WHITE BLOOD COUNT 9.9 10^3/uL (4.0-10.0)
[2022-02-14 08:34] LABS: INR 1.79; PROTHROMBIN TIME 21.2 SECONDS (12.7-14.5)
[2022-02-14 08:48] LABS: ALBUMIN 2.2 GM/DL (3.2-5.2); ALT/SGPT 13 U/L (12-78); BILIRUBIN,TOTAL 0.8 MG/DL (0.2-1.0); BLOOD UREA NITROGEN 10 MG/DL (7-18); CALCIUM LEVEL 8.3 MG/DL (8.8-10.2); CARBON DIOXIDE LEVEL 30 MEQ/L (21-32); CHLORIDE LEVEL 108 MEQ/L (98-107); CREATININE FOR GFR 0.64 MG/DL (0.70-1.30); GLOMERULAR FILTRATION RATE > 60.0 (>35); GLUCOSE, FASTING 85 MG/DL (70-100); POTASSIUM SERUM 3.8 MEQ/L (3.5-5.1); SODIUM LEVEL 142 MEQ/L (136-145); TOTAL PROTEIN 5.3 GM/DL (6.4-8.2)
[2022-02-14] MEDS: LACTOBACILLUS ACIDOPHILUS CAP (BACID) PO SCH ×2 (09:59→16:51)
[2022-02-14] MEDS: MEROPENEM INJ 1 GM in IV 1 EA IV SCH ×4 (09:59→22:03)
[2022-02-14] MEDS: POTASSIUM CHLORIDE 10MEQ SR TABLET PO SCH ×2 (10:00→21:07)
[2022-02-14] MEDS: FUROSEMIDE 40 MG TAB PO SCH (10:00)
[2022-02-14] MEDS: OMEPRAZOLE 20MG CAP PO SCH ×2 (10:00→21:07)
[2022-02-14] MEDS: MEMANTINE 5MG TABLET (NAMENDA) PO SCH ×2 (10:00→21:07)
[2022-02-14] MEDS: SINEMET 25-100 MG TAB PO SCH ×3 (10:01→21:07)
[2022-02-14] MEDS: VITAMIN D 1,000 INTERNATIONAL UNITS TABLET PO SCH (10:01)
[2022-02-14] MEDS: rOPINIRole 0.25 MG TAB(REQUIP) PO SCH ×3 (10:05→21:07)
[2022-02-14 12:00] VITALS: BP 99/54
[2022-02-14 12:14] VITALS: BP 99/54
[2022-02-14] MEDS: RIVAROXABAN 20 MG TAB (XARELTO) PO SCH (16:51)
[2022-02-14 20:00] VITALS: BP 114/64
[2022-02-14] MEDS: PRAVASTATIN 20 MG TAB PO SCH (21:07)
[2022-02-15] VITALS: BP 123/87
[2022-02-15 04:00] VITALS: BP 139/63
[2022-02-15 08:22] VITALS: BP 146/67
[2022-02-15 08:45] LABS: HEMATOCRIT 31.4 % (42.0-52.0); HEMOGLOBIN 10.4 g/dl (13.5-17.5); MEAN CORPUSCULAR HEMOGLOBIN 31.2 pg (27.0-33.0); MEAN CORPUSCULAR HGB CONC 33.1 g/dl (32.0-36.5); MEAN CORPUSCULAR VOLUME 94.3 fl (80.0-96.0); PLATELET COUNT, AUTOMATED 319 10^3/uL (150-450); RED BLOOD COUNT 3.33 10^6/uL (4.30-6.10); WHITE BLOOD COUNT 10.1 10^3/uL (4.0-10.0)
[2022-02-15] MEDS: LACTOBACILLUS ACIDOPHILUS CAP (BACID) PO SCH (08:55)
[2022-02-15] MEDS: rOPINIRole 0.25 MG TAB(REQUIP) PO SCH (08:56)
[2022-02-15] MEDS: FUROSEMIDE 40 MG TAB PO SCH (08:56)
[2022-02-15] MEDS: OMEPRAZOLE 20MG CAP PO SCH (08:56)
[2022-02-15] MEDS: MEMANTINE 5MG TABLET (NAMENDA) PO SCH (08:56)
[2022-02-15] MEDS: MEROPENEM INJ 1 GM in IV 1 EA IV SCH ×2 (08:56→10:35)
[2022-02-15] MEDS: SINEMET 25-100 MG TAB PO SCH (08:56)
[2022-02-15] MEDS: VITAMIN D 1,000 INTERNATIONAL UNITS TABLET PO SCH (08:56)
[2022-02-15] MEDS: POTASSIUM CHLORIDE 10MEQ SR TABLET PO SCH (08:56)
[2022-02-15 09:14] LABS: ATYPICAL LYMPH 4 % (0-5); LYMPHOCYTES 11 % (16-44); METAMYELOCYTES 1 % (0-0); MONOCYTES 5 % (0-5); MYELOCYTES 3 % (0-0); NEUTROPHILS 73 % (28-66)
[2022-02-15 09:15] LABS: BLOOD UREA NITROGEN 11 MG/DL (7-18); CALCIUM LEVEL 8.7 MG/DL (8.8-10.2); CARBON DIOXIDE LEVEL 30 MEQ/L (21-32); CHLORIDE LEVEL 106 MEQ/L (98-107); CREATININE FOR GFR 0.63 MG/DL (0.70-1.30); GLOMERULAR FILTRATION RATE > 60.0 (>35); GLUCOSE, FASTING 100 MG/DL (70-100); MAGNESIUM LEVEL 1.9 MG/DL (1.8-2.4); PLATELET ESTIMATE NORMAL (NORMAL); SODIUM LEVEL 140 MEQ/L (136-145)
[2022-02-15 09:16] LABS: STOMATOCYTES 1+
[2022-02-15] MEDS ORDERED: RISATAB3 PO (10:25)
== END 2022-02-15 12:30 | DRG 872 ==
LOC: M ED 16:10 → EDBD 16:10 → M ED INP 17:54 → ENRESERV 21:45 → M PCU 23:11
PROVIDERS: ADMIT Internal Medicine; ATTEND Internal Medicine
DX: A41.9 Sepsis, unspecified organism (principal); D68.32 Hemorrhagic disorder due to extrinsic circulating anticoagulants; I48.91 Unspecified atrial fibrillation; I95.9 Hypotension, unspecified; G31.83 Neurocognitive disorder with Lewy bodies; F02.80 Dementia in other diseases classified elsewhere, unspecified severity, without behavioral disturbance, psychotic disturbance, mood disturbance, and anxiety; D64.9 Anemia, unspecified; E87.6 Hypokalemia; Z20.822 Contact with and (suspected) exposure to COVID-19; Z79.01 Long term (current) use of anticoagulants; Z79.899 Other long term (current) drug therapy; Z88.3 Allergy status to other anti-infective agents; Z91.018 Allergy to other foods; I10 Essential (primary) hypertension; K21.9 Gastro-esophageal reflux disease without esophagitis; R97.20 Elevated prostate specific antigen [PSA]; Z85.46 Personal history of malignant neoplasm of prostate; Z92.3 Personal history of irradiation; G25.81 Restless legs syndrome; Z95.0 Presence of cardiac pacemaker; E83.51 Hypocalcemia

== ENCOUNTER → 2022-02-20 | Outpatient (REF) | payer MEDICAID, MEDICARE ==
[~2022-02-20] MED LIST changes: +RISATAB3 PO
[2022-02-20 12:00] LABS: HEMATOCRIT 30.3 % (42.0-52.0); HEMOGLOBIN 9.9 g/dl (13.5-17.5); MEAN CORPUSCULAR HEMOGLOBIN 31.2 pg (27.0-33.0); MEAN CORPUSCULAR HGB CONC 32.7 g/dl (32.0-36.5); MEAN CORPUSCULAR VOLUME 95.6 fl (80.0-96.0); PLATELET COUNT, AUTOMATED 317 10^3/uL (150-450); RED BLOOD COUNT 3.17 10^6/uL (4.30-6.10); WHITE BLOOD COUNT 7.4 10^3/uL (4.0-10.0)
[2022-02-20 12:33] LABS: ALBUMIN 2.8 GM/DL (3.2-5.2); ALT/SGPT 25 U/L (12-78); BILIRUBIN,TOTAL 0.8 MG/DL (0.2-1.0); BLOOD UREA NITROGEN 15 MG/DL (7-18); CALCIUM LEVEL 8.2 MG/DL (8.8-10.2); CARBON DIOXIDE LEVEL 31 MEQ/L (21-32); CHLORIDE LEVEL 100 MEQ/L (98-107); CREATININE FOR GFR 0.83 MG/DL (0.70-1.30); GLOMERULAR FILTRATION RATE > 60.0 (>35); GLUCOSE, FASTING 83 MG/DL (70-100); POTASSIUM SERUM 4.7 MEQ/L (3.5-5.1); SODIUM LEVEL 134 MEQ/L (136-145); TOTAL PROTEIN 5.6 GM/DL (6.4-8.2)
== END ==
LOC: SKLAB5 10:00
PROVIDERS: ATTEND Neuromusculoskeletal Medicine & OMM
DX: G20 Parkinson's disease (principal); I10 Essential (primary) hypertension; D64.9 Anemia, unspecified; R97.20 Elevated prostate specific antigen [PSA]; Z85.46 Personal history of malignant neoplasm of prostate
CPT/HCPCS: 36415; 80053; 85027; G0103

== ENCOUNTER → 2022-03-14 | Outpatient (REF) | payer MEDICARE | LOC: SKLAB5 12:15 | PROVIDERS: ATTEND Neuromusculoskeletal Medicine & OMM | DX: Z53.8 Procedure and treatment not carried out for other reasons (principal) ==

== ENCOUNTER → 2022-03-16 | Outpatient (REF) | payer MEDICAID, MEDICARE ==
[~2022-03-16] MED LIST changes: +ACET-910 PO; +DULC10SU2 PR; +ERGO500029 PO; +MELA3TAB30 PO; +MILKSUS5 PO; +POTA-149 PO
[2022-03-16 09:10] LABS: BLOOD UREA NITROGEN 23 MG/DL (7-18); CALCIUM LEVEL 9.6 MG/DL (8.8-10.2); CARBON DIOXIDE LEVEL 27 MEQ/L (21-32); CHLORIDE LEVEL 104 MEQ/L (98-107); CREATININE FOR GFR 0.83 MG/DL (0.70-1.30); GLOMERULAR FILTRATION RATE > 60.0 (>35); GLUCOSE, FASTING 92 MG/DL (70-100); POTASSIUM SERUM 4.3 MEQ/L (3.5-5.1); SODIUM LEVEL 136 MEQ/L (136-145)
== END ==
LOC: SKLAB5 09:00
PROVIDERS: ATTEND Neuromusculoskeletal Medicine & OMM
DX: R60.0 Localized edema (principal); R97.20 Elevated prostate specific antigen [PSA]; Z85.46 Personal history of malignant neoplasm of prostate
CPT/HCPCS: 36415; 80048; G0103

== ENCOUNTER → 2022-03-31 | Outpatient (CLI) | payer MEDICARE ==
[~2022-03-31] MED LIST changes: -ACET-910 PO; -DULC10SU2 PR; -ERGO500029 PO; -MELA3TAB30 PO; -MILKSUS5 PO; -POTA-149 PO
== END ==
LOC: M RAD 10:15
PROVIDERS: ATTEND Urology
DX: C61 Malignant neoplasm of prostate (principal)
CPT/HCPCS: 78306; A9503

== ENCOUNTER → 2022-04-04 | Outpatient (REF) | payer MEDICAID, MEDICARE | LOC: SKLAB6 09:35 | PROVIDERS: ATTEND Neuromusculoskeletal Medicine & OMM | DX: R97.20 Elevated prostate specific antigen [PSA] (principal); Z85.46 Personal history of malignant neoplasm of prostate | CPT/HCPCS: 36415; G0103 ==

== ENCOUNTER → 2022-04-10 | Outpatient (REF) | payer MEDICAID, MEDICARE | LOC: SKLAB5 09:45 | PROVIDERS: ATTEND Neuromusculoskeletal Medicine & OMM | DX: R97.21 Rising PSA following treatment for malignant neoplasm of prostate (principal) | CPT/HCPCS: 36415; G0103 ==

== ENCOUNTER → 2022-05-18 | Outpatient (REF) | payer MEDICARE, MEDICAID | LOC: SKLAB6 07:04 | PROVIDERS: ATTEND Neuromusculoskeletal Medicine & OMM | DX: R97.20 Elevated prostate specific antigen [PSA] (principal); Z85.46 Personal history of malignant neoplasm of prostate | CPT/HCPCS: 36415; G0103 ==

== ENCOUNTER → 2022-05-29 | Outpatient (REF) | payer MEDICARE, MEDICAID ==
[~2022-05-29] MED LIST changes: +ACET-910 PO; +DULC10SU2 PR; +ERGO500029 PO; +MELA3TAB30 PO; +MILKSUS5 PO; +POTA-149 PO
== END ==
LOC: SKLAB6 11:53
PROVIDERS: ATTEND Nurse Practitioner Family
DX: Z01.812 Encounter for preprocedural laboratory examination (principal); Z20.822 Contact with and (suspected) exposure to COVID-19

== ENCOUNTER 2022-06-02 13:18 | Day surgery (SDC) | payer MEDICARE, MEDICAID ==
[~2022-06-02] VITALS: Ht 165.1 cm; Wt 73.0 kg
[2022-06-02] MEDS ORDERED: LR 1,000 ML IV SCH ×2 (13:30→16:10)
[2022-06-02] MEDS ORDERED: XARE20TA PO (13:43)
[2022-06-02] MEDS ORDERED: ROCURONIUM BROMIDE 50 MG/5 ML VIAL As Ordered ONE (14:26)
[2022-06-02] MEDS ORDERED: ONDANSETRON 4MG 2ML VIAL As Ordered ONE (14:26)
[2022-06-02] MEDS ORDERED: LIDOCAINE 2% INJ 100 MG/5 ML SYRINGE As Ordered ONE (14:26)
[2022-06-02] MEDS ORDERED: dexameTHASONE 4 MG/ML 1ML VIAL (J1100 PER 1MG) As Ordered ONE (14:26)
[2022-06-02] MEDS ORDERED: propofoL 200 MG/20 ML VIAL As Ordered ONE (14:26)
[2022-06-02] MEDS ORDERED: fentaNYL 100 MCG/2 ML INJECTION As Ordered ONE (14:26)
[2022-06-02] MEDS ORDERED: GLYCOPYRROLATE INJ 0.2 MG/ML 2 ML VIAL As Ordered ONE (14:48)
[2022-06-02] MEDS ORDERED: ISOVUE-300 61% 50ML VIAL As Ordered ONE (14:54)
[2022-06-02] MEDS ORDERED: fentaNYL 100 MCG/2 ML INJECTION IV PRN (16:10)
[2022-06-02] MEDS ORDERED: ONDANSETRON 4MG 2ML VIAL IV PRN (16:10)
[2022-06-02] MEDS ORDERED: oxyCODONE 5MG TAB PO PRN (16:10)
[2022-06-02 17:10] VITALS: BP 166/83
== END 2022-06-02 17:30 | disposition home or self-care (01) ==
LOC: M SDC 13:18
PROVIDERS: ATTEND Internal Medicine Gastroenterology
DX: Z46.59 Encounter for fitting and adjustment of other gastrointestinal appliance and device (principal); Z96.89 Presence of other specified functional implants; R93.2 Abnormal findings on diagnostic imaging of liver and biliary tract; E78.5 Hyperlipidemia, unspecified; K21.9 Gastro-esophageal reflux disease without esophagitis; I48.91 Unspecified atrial fibrillation; Z95.0 Presence of cardiac pacemaker; F03.90 Unspecified dementia, unspecified severity, without behavioral disturbance, psychotic disturbance, mood disturbance, and anxiety; G20 Parkinson's disease; Z92.3 Personal history of irradiation; Z85.46 Personal history of malignant neoplasm of prostate; N40.0 Benign prostatic hyperplasia without lower urinary tract symptoms; Z79.899 Other long term (current) drug therapy; K80.50 Calculus of bile duct without cholangitis or cholecystitis without obstruction; Z88.8 Allergy status to other drugs, medicaments and biological substances; Z91.018 Allergy to other foods
CPT/HCPCS: 43262; 43264; 43275; 74330; J1100; J2405; J3010; Q9967

== ENCOUNTER → 2022-07-03 | Outpatient (REF) | payer MEDICARE, MEDICAID ==
[2022-07-03 13:25] LABS: HEMATOCRIT 29.9 % (42.0-52.0); HEMOGLOBIN 9.9 g/dl (13.5-17.5); MEAN CORPUSCULAR HEMOGLOBIN 31.7 pg (27.0-33.0); MEAN CORPUSCULAR HGB CONC 33.1 g/dl (32.0-36.5); MEAN CORPUSCULAR VOLUME 95.8 fl (80.0-96.0); PLATELET COUNT, AUTOMATED 164 10^3/uL (150-450); RED BLOOD COUNT 3.12 10^6/uL (4.30-6.10); WHITE BLOOD COUNT 5.4 10^3/uL (4.0-10.0)
[2022-07-03 14:24] LABS: BLOOD UREA NITROGEN 21 MG/DL (7-18); CALCIUM LEVEL 8.9 MG/DL (8.8-10.2); CARBON DIOXIDE LEVEL 28 MEQ/L (21-32); CHLORIDE LEVEL 104 MEQ/L (98-107); CREATININE FOR GFR 0.96 MG/DL (0.70-1.30); GLOMERULAR FILTRATION RATE > 60.0 (>35); GLUCOSE, FASTING 96 MG/DL (70-100); POTASSIUM SERUM 4.7 MEQ/L (3.5-5.1); SODIUM LEVEL 135 MEQ/L (136-145)
== END ==
LOC: SKLAB6 10:45
PROVIDERS: ATTEND Neuromusculoskeletal Medicine & OMM
DX: R97.20 Elevated prostate specific antigen [PSA] (principal); Z85.46 Personal history of malignant neoplasm of prostate; D64.9 Anemia, unspecified
CPT/HCPCS: 36415; 80048; 85027; G0103

== ENCOUNTER 2022-08-27 16:45 | Emergency (ER) | payer MEDICARE, MEDICAID ==
[~2022-08-27] VITALS: Ht 167.6 cm; Wt 81.8 kg
[2022-08-27 17:40] LABS: BASO % 0.6 % (0.0-1.0); EOS # 0.1 10^3/uL (0.0-0.5); EOS % 1.4 % (0.0-3.0); HEMATOCRIT 31.1 % (42.0-52.0); HEMOGLOBIN 9.9 g/dl (13.5-17.5); LYMPH # 1.9 10^3/uL (1.5-5.0); LYMPH % 36.8 % (24.0-44.0); MEAN CORPUSCULAR HEMOGLOBIN 31.4 pg (27.0-33.0); MEAN CORPUSCULAR HGB CONC 31.8 g/dl (32.0-36.5); MEAN CORPUSCULAR VOLUME 98.7 fl (80.0-96.0); MONO # 0.4 10^3/uL (0.0-0.8); MONO % 7.6 % (2.0-8.0); NEUTROPHILS # 2.8 10^3/uL (1.5-8.5); NEUTROPHILS % 53.2 % (36.0-66.0); PLATELET COUNT, AUTOMATED 163 10^3/uL (150-450); RED BLOOD COUNT 3.15 10^6/uL (4.30-6.10); WHITE BLOOD COUNT 5.2 10^3/uL (4.0-10.0)
[2022-08-27 18:32] LABS: ALBUMIN 3.6 GM/DL (3.2-5.2); BILIRUBIN,DIRECT 0.1 MG/DL (0.0-0.2); BILIRUBIN,TOTAL 0.4 MG/DL (0.2-1.0); CALCIUM LEVEL 8.9 MG/DL (8.8-10.2); CREATININE FOR GFR 1.4 MG/DL (0.70-1.30); GLOMERULAR FILTRATION RATE 51.9 (>35); POTASSIUM SERUM 4.6 MEQ/L (3.5-5.1); TOTAL PROTEIN 6.4 GM/DL (6.4-8.2)
[2022-08-27] MEDS ORDERED: NS 500 ML IV ONE (20:20)
[2022-08-27 21:15] VITALS: BP 150/66
== END 2022-08-27 22:09 | disposition home or self-care (01) ==
LOC: M ED 16:45 → EDBD 16:45 → M ED 22:09
DX: N17.9 Acute kidney failure, unspecified (principal); R07.89 Other chest pain; I48.91 Unspecified atrial fibrillation; C61 Malignant neoplasm of prostate; I10 Essential (primary) hypertension; Z88.6 Allergy status to analgesic agent; Z91.018 Allergy to other foods; Z95.0 Presence of cardiac pacemaker

== ENCOUNTER → 2022-09-07 | Outpatient (REF) | payer MEDICARE, MEDICAID | LOC: SKLAB6 07:00 | PROVIDERS: ATTEND Nurse Practitioner Family | DX: R97.21 Rising PSA following treatment for malignant neoplasm of prostate (principal) | CPT/HCPCS: 36415; G0103 ==

== ENCOUNTER 2022-10-10 16:40 | Emergency (ER) | payer MEDICARE, MEDICAID ==
[2022-10-10 18:39] VITALS: BP 144/78
== END 2022-10-10 19:00 | disposition home or self-care (01) ==
LOC: M ED 16:40
DX: S09.90XA Unspecified injury of head, initial encounter (principal); W19.XXXA Unspecified fall, initial encounter; Y92.129 Unspecified place in nursing home as the place of occurrence of the external cause; M43.12 Spondylolisthesis, cervical region; I48.91 Unspecified atrial fibrillation; I50.9 Heart failure, unspecified; Z95.0 Presence of cardiac pacemaker; Z79.01 Long term (current) use of anticoagulants; Z79.899 Other long term (current) drug therapy; Z88.6 Allergy status to analgesic agent; Z91.018 Allergy to other foods

== ENCOUNTER → 2022-10-23 | Outpatient (REF) | payer MEDICARE, MEDICAID | LOC: SKLAB6 07:00 | PROVIDERS: ATTEND Nurse Practitioner Family | DX: Z12.5 Encounter for screening for malignant neoplasm of prostate (principal) | CPT/HCPCS: 36415; G0103 ==

== ENCOUNTER 2022-10-29 19:28 | Emergency (ER) | payer MEDICARE, MEDICAID ==
[2022-10-29] MEDS ORDERED: BOOSTRIX/ADACEL VACCINE (DIPHTH/PERTUSS/ACELL/TETANUS) 0.5ML SYR IM.IMMUN ONE (19:55)
[2022-10-29 20:48] LABS: BASO % 0.3 % (0.0-1.0); EOS % 0.5 % (0.0-3.0); HEMATOCRIT 30.6 % (42.0-52.0); HEMOGLOBIN 10.1 g/dl (13.5-17.5); LYMPH # 1.3 10^3/uL (1.5-5.0); LYMPH % 20.6 % (24.0-44.0); MEAN CORPUSCULAR HEMOGLOBIN 32.2 pg (27.0-33.0); MEAN CORPUSCULAR VOLUME 97.5 fl (80.0-96.0); MONO # 0.4 10^3/uL (0.0-0.8); MONO % 6.7 % (2.0-8.0); NEUTROPHILS # 4.5 10^3/uL (1.5-8.5); NEUTROPHILS % 71.3 % (36.0-66.0); PLATELET COUNT, AUTOMATED 148 10^3/uL (150-450); RED BLOOD COUNT 3.14 10^6/uL (4.30-6.10); WHITE BLOOD COUNT 6.3 10^3/uL (4.0-10.0)
[2022-10-29 21:13] LABS: INR 1.09; PARTIAL THROMBOPLASTIN TIME 26.7 SECONDS (24.8-34.2); PROTHROMBIN TIME 14.3 SECONDS (12.5-14.5)
[2022-10-29 21:20] LABS: BLOOD UREA NITROGEN 21 MG/DL (9-23); CALCIUM LEVEL 7.1 MG/DL (8.3-10.6); CARBON DIOXIDE LEVEL 20 MMOL/L (20-31); CHLORIDE LEVEL 114 MMOL/L (98-107); CREATININE FOR GFR 0.88 MG/DL (0.70-1.30); GLOMERULAR FILTRATION RATE > 60.0 (>35); GLUCOSE, FASTING 88 MG/DL (74-106); POTASSIUM SERUM 4.4 MMOL/L (3.5-5.1); SODIUM LEVEL 144 MMOL/L (136-145)
[2022-10-29 21:45] VITALS: BP 155/70
== END 2022-10-29 21:54 | disposition home or self-care (01) ==
LOC: M ED 19:28 → EDBD 19:28 → M ED 21:54
DX: S51.002A Unspecified open wound of left elbow, initial encounter (principal); S00.03XA Contusion of scalp, initial encounter; S22.41XA Multiple fractures of ribs, right side, initial encounter for closed fracture; W19.XXXA Unspecified fall, initial encounter; Y92.129 Unspecified place in nursing home as the place of occurrence of the external cause; M19.022 Primary osteoarthritis, left elbow; M50.320 Other cervical disc degeneration, mid-cervical region, unspecified level; I48.91 Unspecified atrial fibrillation; I50.9 Heart failure, unspecified; G20 Parkinson's disease; F03.90 Unspecified dementia, unspecified severity, without behavioral disturbance, psychotic disturbance, mood disturbance, and anxiety; Z85.46 Personal history of malignant neoplasm of prostate; Z79.899 Other long term (current) drug therapy; Z88.6 Allergy status to analgesic agent; Z91.018 Allergy to other foods

== ENCOUNTER → 2022-11-02 | Outpatient (REF) | payer MEDICARE, MEDICAID ==
[2022-11-02 16:01] LABS: HEMATOCRIT 30.6 % (42.0-52.0); HEMOGLOBIN 9.9 g/dl (13.5-17.5); MEAN CORPUSCULAR HGB CONC 32.4 g/dl (32.0-36.5); PLATELET COUNT, AUTOMATED 161 10^3/uL (150-450); RED BLOOD COUNT 3.09 10^6/uL (4.30-6.10); WHITE BLOOD COUNT 4.6 10^3/uL (4.0-10.0)
[2022-11-02 16:20] LABS: ALBUMIN 3.8 G/DL (3.2-5.2); ALKALINE PHOSPHATASE 91 U/L (46-116); ALT/SGPT < 9 U/L (7.0-40); AST/SGOT 21 U/L (<34); BILIRUBIN,TOTAL 0.5 MG/DL (0.3-1.2); BLOOD UREA NITROGEN 32 MG/DL (9-23); CARBON DIOXIDE LEVEL 24 MMOL/L (20-31); CHLORIDE LEVEL 105 MMOL/L (98-107); CREATININE FOR GFR 1.59 MG/DL (0.70-1.30); GLOMERULAR FILTRATION RATE 44.7 (>35); GLUCOSE, FASTING 98 MG/DL (74-106); POTASSIUM SERUM 5.2 MMOL/L (3.5-5.1); SODIUM LEVEL 138 MMOL/L (136-145); TOTAL PROTEIN 6.3 G/DL (5.7-8.2)
== END ==
LOC: SKLAB6 07:00
PROVIDERS: ATTEND Internal Medicine
DX: U07.1 COVID-19 (principal); Z79.899 Other long term (current) drug therapy

== ENCOUNTER → 2022-11-06 | Outpatient (REF) | payer MEDICARE, MEDICAID ==
[2022-11-06 08:16] LABS: MEAN CORPUSCULAR HEMOGLOBIN 31.8 pg (27.0-33.0); MEAN CORPUSCULAR HGB CONC 32.3 g/dl (32.0-36.5); MEAN CORPUSCULAR VOLUME 98.7 fl (80.0-96.0); PLATELET COUNT, AUTOMATED 131 10^3/uL (150-450); RED BLOOD COUNT 3.14 10^6/uL (4.30-6.10); WHITE BLOOD COUNT 6.8 10^3/uL (4.0-10.0)
[2022-11-06 08:37] LABS: ALBUMIN 3.3 G/DL (3.2-5.2); ALKALINE PHOSPHATASE 75 U/L (46-116); ALT/SGPT < 9 U/L (7.0-40); AST/SGOT 27 U/L (<34); BILIRUBIN,TOTAL 0.5 MG/DL (0.3-1.2); BLOOD UREA NITROGEN 31 MG/DL (9-23); CALCIUM LEVEL 8.7 MG/DL (8.3-10.6); CARBON DIOXIDE LEVEL 23 MMOL/L (20-31); CHLORIDE LEVEL 106 MMOL/L (98-107); CREATININE FOR GFR 1.07 MG/DL (0.70-1.30); GLOMERULAR FILTRATION RATE > 60.0 (>35); GLUCOSE, FASTING 83 MG/DL (74-106); POTASSIUM SERUM 4.6 MMOL/L (3.5-5.1); SODIUM LEVEL 141 MMOL/L (136-145); TOTAL PROTEIN 5.6 G/DL (5.7-8.2)
== END ==
LOC: SKLAB6 07:00
PROVIDERS: ATTEND Internal Medicine
DX: U07.1 COVID-19 (principal); Z79.899 Other long term (current) drug therapy

== ENCOUNTER → 2022-11-09 | Outpatient (REF) | payer MEDICARE, MEDICAID ==
[2022-11-09 08:17] LABS: HEMATOCRIT 33.7 % (42.0-52.0); HEMOGLOBIN 10.7 g/dl (13.5-17.5); MEAN CORPUSCULAR HEMOGLOBIN 31.6 pg (27.0-33.0); MEAN CORPUSCULAR HGB CONC 31.8 g/dl (32.0-36.5); MEAN CORPUSCULAR VOLUME 99.4 fl (80.0-96.0); PLATELET COUNT, AUTOMATED 168 10^3/uL (150-450); RED BLOOD COUNT 3.39 10^6/uL (4.30-6.10); WHITE BLOOD COUNT 6.5 10^3/uL (4.0-10.0)
[2022-11-09 08:43] LABS: ALBUMIN 3.5 G/DL (3.2-5.2); ALKALINE PHOSPHATASE 89 U/L (46-116); ALT/SGPT < 9 U/L (7.0-40); AST/SGOT 27 U/L (<34); BILIRUBIN,TOTAL 0.5 MG/DL (0.3-1.2); BLOOD UREA NITROGEN 25 MG/DL (9-23); CALCIUM LEVEL 9.3 MG/DL (8.3-10.6); CARBON DIOXIDE LEVEL 27 MMOL/L (20-31); CHLORIDE LEVEL 105 MMOL/L (98-107); GLOMERULAR FILTRATION RATE > 60.0 (>35); GLUCOSE, FASTING 84 MG/DL (74-106); SODIUM LEVEL 141 MMOL/L (136-145)
== END ==
LOC: SKLAB6 07:00
PROVIDERS: ATTEND Internal Medicine
DX: U07.1 COVID-19 (principal); Z79.899 Other long term (current) drug therapy

== ENCOUNTER 2022-11-17 15:55 | Emergency (ER) | payer MEDICARE, MEDICAID ==
[2022-11-17 18:31] VITALS: BP 103/83
== END 2022-11-17 19:54 | disposition home or self-care (01) ==
LOC: M ED 15:55
DX: S82.431A Displaced oblique fracture of shaft of right fibula, initial encounter for closed fracture (principal); W19.XXXA Unspecified fall, initial encounter; Y92.129 Unspecified place in nursing home as the place of occurrence of the external cause; F03.90 Unspecified dementia, unspecified severity, without behavioral disturbance, psychotic disturbance, mood disturbance, and anxiety; I50.9 Heart failure, unspecified; E78.00 Pure hypercholesterolemia, unspecified; Z95.0 Presence of cardiac pacemaker; Z79.01 Long term (current) use of anticoagulants; Z79.899 Other long term (current) drug therapy; Z88.6 Allergy status to analgesic agent; Z91.018 Allergy to other foods

== ENCOUNTER → 2022-11-17 | Outpatient (CLI) | payer MEDICARE, MEDICAID | LOC: M RAD 14:13 | PROVIDERS: ATTEND Internal Medicine | DX: Z53.9 Procedure and treatment not carried out, unspecified reason (principal) ==

== ENCOUNTER → 2022-11-17 | Outpatient (REF) | payer MEDICARE, MEDICAID | LOC: SKLAB6 11:27 | PROVIDERS: ATTEND Internal Medicine | DX: S82.431A Displaced oblique fracture of shaft of right fibula, initial encounter for closed fracture (principal); W19.XXXA Unspecified fall, initial encounter; M85.88 Other specified disorders of bone density and structure, other site; M12.9 Arthropathy, unspecified; M77.31 Calcaneal spur, right foot ==

== ENCOUNTER 2022-11-27 05:14 | Emergency (ER) | payer MEDICARE, MEDICAID ==
[~2022-11-27] VITALS: Ht 177.8 cm; Wt 85.6 kg
[2022-11-27] MEDS ORDERED: MORPHINE 4 MG/ML 1ML VIAL IV PRN (05:45)
[2022-11-27] MEDS ORDERED: ONDANSETRON 4MG 2ML VIAL IV ONE (05:45)
[2022-11-27 06:15] LABS: INR 1.23; PROTHROMBIN TIME 15.8 SECONDS (12.5-14.5)
[2022-11-27 06:23] LABS: BLOOD UREA NITROGEN 29 MG/DL (9-23); CALCIUM LEVEL 9.3 MG/DL (8.3-10.6); CARBON DIOXIDE LEVEL 26 MMOL/L (20-31); CHLORIDE LEVEL 106 MMOL/L (98-107); CREATININE FOR GFR 0.99 MG/DL (0.70-1.30); GLOMERULAR FILTRATION RATE > 60.0 (>35); GLUCOSE, FASTING 102 MG/DL (74-106); POTASSIUM SERUM 4.6 MMOL/L (3.5-5.1); SODIUM LEVEL 140 MMOL/L (136-145)
[2022-11-27] MEDS ORDERED: NS 1,000 ML IV SCH (06:25)
[2022-11-27 07:37] LABS: BASO % 0.4 % (0.0-1.0); EOS # 0.1 10^3/uL (0.0-0.5); HEMATOCRIT 30.3 % (42.0-52.0); HEMOGLOBIN 9.7 g/dl (13.5-17.5); LYMPH # 2.5 10^3/uL (1.5-5.0); LYMPH % 36.5 % (24.0-44.0); MEAN CORPUSCULAR HEMOGLOBIN 31.8 pg (27.0-33.0); MEAN CORPUSCULAR VOLUME 99.3 fl (80.0-96.0); MONO # 0.5 10^3/uL (0.0-0.8); MONO % 7.1 % (2.0-8.0); NEUTROPHILS # 3.7 10^3/uL (1.5-8.5); NEUTROPHILS % 54.6 % (36.0-66.0); PLATELET COUNT, AUTOMATED 217 10^3/uL (150-450); RED BLOOD COUNT 3.05 10^6/uL (4.30-6.10); WHITE BLOOD COUNT 6.8 10^3/uL (4.0-10.0)
[2022-11-27 07:51] VITALS: BP 184/68
== END 2022-11-27 09:13 | disposition home or self-care (01) ==
LOC: M ED 05:14
DX: S42.211A Unspecified displaced fracture of surgical neck of right humerus, initial encounter for closed fracture (principal); S01.01XA Laceration without foreign body of scalp, initial encounter; Z95.0 Presence of cardiac pacemaker; D64.9 Anemia, unspecified; W19.XXXA Unspecified fall, initial encounter; Y92.129 Unspecified place in nursing home as the place of occurrence of the external cause; F03.90 Unspecified dementia, unspecified severity, without behavioral disturbance, psychotic disturbance, mood disturbance, and anxiety; I48.91 Unspecified atrial fibrillation; E78.5 Hyperlipidemia, unspecified; K21.9 Gastro-esophageal reflux disease without esophagitis; Z85.46 Personal history of malignant neoplasm of prostate; Z47.89 Encounter for other orthopedic aftercare; Z79.01 Long term (current) use of anticoagulants; Z79.899 Other long term (current) drug therapy; Z88.6 Allergy status to analgesic agent; Z91.018 Allergy to other foods
CPT/HCPCS: 70450; 70486; 72125; 73030; 73610; 80048; 85025; 85610; 93005; 93041; 96374; 96375; 99285; J2405

== ENCOUNTER → 2023-01-01 | Outpatient (CLI) | payer MEDICARE, MEDICAID ==
[~2023-01-01] MED LIST changes: +ACET650T61 PO; +BENA-8 PO; +BENG2.5G TOP; +OYST1TAB PO; +TRAM50TA2 PO; +TRAZ1TAB10 PO
== END ==
LOC: M SOG 09:43
PROVIDERS: ATTEND Physician Assistant
DX: S42.201D Unspecified fracture of upper end of right humerus, subsequent encounter for fracture with routine healing (principal)

== ENCOUNTER 2023-01-02 03:00 | Observation (INO) | payer MEDICARE, MEDICAID ==
[~2023-01-02 03:00] MED LIST changes: -ACET650T61 PO; -BENA-8 PO; -BENG2.5G TOP; -OYST1TAB PO; -TRAM50TA2 PO; -TRAZ1TAB10 PO
[2023-01-02] MEDS ORDERED: NS 1,000 ML IV ONE ×2 (03:20→04:15)
[2023-01-02] MEDS ORDERED: NOREPINEPHRINE 4MG IN D5 250ML 4 MG in IV 1 EA IV SCH ×2 (03:30)
[2023-01-02 03:50] LABS: BASO % 0.1 % (0.0-1.0); EOS % 0.1 % (0.0-3.0); HEMATOCRIT 32.3 % (42.0-52.0); HEMOGLOBIN 9.5 g/dl (13.5-17.5); LYMPH # 1.8 10^3/uL (1.5-5.0); LYMPH % 13.5 % (24.0-44.0); MEAN CORPUSCULAR HEMOGLOBIN 31.1 pg (27.0-33.0); MEAN CORPUSCULAR HGB CONC 29.4 g/dl (32.0-36.5); MEAN CORPUSCULAR VOLUME 105.9 fl (80.0-96.0); MONO # 0.8 10^3/uL (0.0-0.8); MONO % 6.2 % (2.0-8.0); NEUTROPHILS # 10.8 10^3/uL (1.5-8.5); NEUTROPHILS % 79.2 % (36.0-66.0); PLATELET COUNT, AUTOMATED 187 10^3/uL (150-450); RED BLOOD COUNT 3.05 10^6/uL (4.30-6.10); WHITE BLOOD COUNT 13.6 10^3/uL (4.0-10.0)
[2023-01-02] MEDS: METOPROLOL 5 MG/5 ML VIAL IV SCH ×3 (04:14→05:40)
[2023-01-02 04:57] LABS: ALBUMIN 3.3 G/DL (3.2-5.2); BILIRUBIN,TOTAL 0.6 MG/DL (0.3-1.2); CALCIUM LEVEL 9.1 MG/DL (8.3-10.6); CK-MB VALUE MASS 3.6 NG/ML (<3.6); CREATININE FOR GFR 2.35 MG/DL (0.70-1.30); GLOMERULAR FILTRATION RATE 28.5 (>35); MAGNESIUM LEVEL 2.4 MG/DL (1.8-2.4); MB/CK RELATIVE INDEX 2.95 (< OR =4); POTASSIUM SERUM 4.7 MMOL/L (3.5-5.1)
[2023-01-02] MEDS ORDERED: XARE20TA PO (04:58)
[2023-01-02] MEDS ORDERED: ACET650T61 PO (04:58)
[2023-01-02] MEDS ORDERED: BENA-8 PO (04:58)
[2023-01-02] MEDS ORDERED: OYST1TAB PO (04:58)
[2023-01-02] MEDS ORDERED: TRAZ1TAB10 PO (04:58)
[2023-01-02] MEDS ORDERED: TRAM50TA2 PO (04:58)
[2023-01-02] MEDS ORDERED: BENG2.5G TOP (04:58)
[2023-01-02] MEDS ORDERED: HOME MED LIST COMPLETE! XX SCH (05:00)
[2023-01-02 05:06] LABS: VENOUS BASE EXCESS -10.2 (-2.0-2.0); VENOUS O2 SATURATION 55.4 % (60.0-80.0); VENOUS PARTIAL PRESSURE CO2 42.8 mmHg (38.0-50.0); VENOUS PARTIAL PRESSURE O2 33.9 mmHg (30.0-50.0); VENOUS PH 7.218 UNITS (7.330-7.430); VENOUS STANDARD HCO3 15.6 MEQ/L; VENOUS TOTAL CO2 18.4 MEQ/L (24.0-28.0)
[2023-01-02] MEDS ORDERED: SODIUM BICARBONATE 8.4% INJ 50ML SYRINGE IV STA (05:27)
[2023-01-02] MEDS ORDERED: CEFEPIME HCL 2 GM in D5W MINI-BAG PLUS 50 ML IV ONE (05:35)
[2023-01-02 05:40] VITALS: BP 135/97
[2023-01-02 06:06] LABS: RSV AMPLIFICATION NEGATIVE (NEGATIVE)
[2023-01-02 06:10] LABS: CK-MB VALUE MASS 5.5 NG/ML (<3.6)
[2023-01-02 06:16] LABS: MB/CK RELATIVE INDEX 2.8 (< OR =4)
[2023-01-02 06:16] LABS: TOTAL PROTEIN 6.3 G/DL (5.7-8.2)
[2023-01-02 07:40] VITALS: BP 113/72
[2023-01-02] MEDS ORDERED: LORazepam 2 MG/ML 1ML VIAL IV PRN (08:25)
[2023-01-02] MEDS ORDERED: HYOSCYAMINE SULFATE 0.125 MG SUBL TABLET PO PRN (08:25)
[2023-01-02] MEDS: MORPHINE 2 MG/ML 1ML VIAL IV PRN ×2 (08:37→08:55)
== END 2023-01-02 15:33 | disposition expired ==
LOC: M ED 03:00 → EDBD 03:00 → M ED INP 08:24 → INTOOBSV 08:24 → ENRESERV 09:10 → M MSPAV 09:45
PROVIDERS: ADMIT Internal Medicine; ATTEND Internal Medicine
DX: A41.9 Sepsis, unspecified organism (principal); R65.21 Severe sepsis with septic shock; Z51.5 Encounter for palliative care; J96.01 Acute respiratory failure with hypoxia; E87.21 Acute metabolic acidosis; R74.01 Elevation of levels of liver transaminase levels; I21.A1 Myocardial infarction type 2; F03.90 Unspecified dementia, unspecified severity, without behavioral disturbance, psychotic disturbance, mood disturbance, and anxiety; D72.829 Elevated white blood cell count, unspecified; R00.0 Tachycardia, unspecified; I10 Essential (primary) hypertension; I48.91 Unspecified atrial fibrillation; Z85.46 Personal history of malignant neoplasm of prostate; G20 Parkinson's disease; Z88.8 Allergy status to other drugs, medicaments and biological substances; Z91.018 Allergy to other foods; Z79.899 Other long term (current) drug therapy
CPT/HCPCS: 71045; 80053; 82140; 82550; 82553; 82803; 83605; 83735; 84484; 85025; 87040; 87507; 87631; 93005; 96365; 96366; 96367; 96375; 96376; 99285; G0378; J0692; J2060; J2270